=== PATIENT | female | born 1970 | race Caucasian/White ===

== ENCOUNTER 2025-01-29 03:37 | Inpatient (IN) | payer SELFPAY ==
[2025-01-29] VITALS (14 sets, daily range): BP systolic 98–153; BP diastolic 65–86; PULSE 88–127; RESP 18–23; TEMP 36.3–37.3; O2SAT 92–100; BMI 32.9; BMI 37.5
--- NOTE | 2025-01-29 04:16 | EDRME_ITS ---
Rapid Medical Screening Exam REPLACED BY [facility] Arrival date/time: 01/29/25 03:37 Chief Complaint: Abdominal Pain Vital signs: Vital Signs Temperature 98.8 F 01/29/25 03:57 Pulse Rate 127 H 01/29/25 03:57 Respiratory Rate 19 01/29/25 03:57 Blood Pressure 119/76 01/29/25 03:57 Pulse Oximetry (%) 96 01/29/25 03:57 Oxygen Delivery Method Room Air 01/29/25 03:57 REPLACED BY [facility] Narrative: LLQ pain, diarrhea x5 days. No fever, n/v, bloody stools or urinary symptoms reported.
--- NOTE | 2025-01-29 04:17 | XR_ITS ---
Examination: CT abdomen with intravenous contrast CT pelvis with intravenous contrast 2-D coronal reconstructions 2-D sagittal reconstructions Date and time of exam:January 29, 2025 0629 hours INDICATIONS: Cervical abdominal pain beginning 5 days ago. CTDI: vol (mGy) 14.5 DLP: (mGycm) 816 Technique: Multiple axial sections of the abdomen and pelvis have been obtained. 64 slice high-resolution scanner used. 3 mm axial sections have been obtained, post intravenous injection 60 cc Isovue 370 2-D sagittal, coronal reconstructions obtained. Low dose protocols were performed. One or more of the following dose reduction techniques were used; automated exposure control, adjustment of the mA and/or KV according to patient size, use of iterative reconstruction technique. Findings: Hepatomegaly 22 cm with diffuse fatty infiltration throughout the liver Gallstones versus gallbladder sludge No splenic pancreatic or adrenal lesion 4 mm upper pole left renal calculus with severe scarring left kidney moderate scarring right kidney No hydronephrosis or ureteral calculi Aorta normal size Normal appendix No bowel obstruction Abnormal colon at junction distal descending colon and rectosigmoid, marked wall thickening and inflammatory change with pericolonic abscess, axial image 189 extending to the anterior abdominal wall, measuring at least 6 x 5.8 cm Urinary bladder intact Anteverted uterus with uterine body mass at least 4.5 cm IMPRESSION: 4 mm upper pole left renal calculus, severe scarring left kidney Abnormal colon at junction distal descending colon and rectal sigmoid, marked wall thickening and inflammatory change, differential would include perforated malignant neoplasm of the colon, acute diverticulitis Peridiverticular abscess 6 x 5.8 cm Uterine body mass at least 4.5 cm, recommend pelvic sonography follow-up
[2025-01-29] MEDS: HYDROcodone/APAP 7.5/325 TABLET 1 TAB PO (04:36)
[2025-01-29 05:17] LABS: Basophils % (Auto) 0 % (0-2.5); Eosinophils % (Auto) 0 % (0-10); Hematocrit 37.2 % (36.0-46.0); Hemoglobin 13.1 g/dL (12.0-16.0); Immature Granulocytes % (Auto) 1 % (0-0); Immature Granulocytes Auto 0.17 Thou/mm3 (0.00-0.00); Lymphocytes # (Auto) 1.4 Thou/mm3 (1.0-4.8); Lymphocytes % (Auto) 6 % (10-50); Mean Corpuscular HGB Conc 35.2 g/dl (31.0-37.0); Mean Corpuscular Hemoglobin 30.3 pg (25.0-35.0); Mean Corpuscular Volume 86 fL (80-100); Monocytes # (Auto) 1.5 Thou/mm3 (0.0-0.8); Monocytes % (Auto) 7 % (0-12); Neutrophils # (Auto) 19.6 Thou/mm3 (1.8-7.7); Neutrophils % (Auto) 87 % (37-80); Nucleated Red Blood Cell % 0 /100 WBC (0); Platelet Count 395 Thou/mm3 (140-440); Red Blood Count 4.33 Miln/mm3 (4.00-5.20); White Blood Count 22.6 Thou/mm3 (3.6-11.0)
[2025-01-29 05:40] LABS: Collection Type, Urine Clean Catch
[2025-01-29 05:49] LABS: Alanine Aminotransferase 20 U/L (10-49); Albumin, Serum 4.4 gm/dL (3.5-5.0); Albumin/Globulin Ratio 1.3 (1.2-2.2); Alkaline Phosphatase 88 U/L (46-116); Anion Gap 9 (7-16); Aspartate Amino Transferase 20 U/L (0-34); BUN/Creatinine Ratio 11 Ratio (12-20); Bilirubin,Total 0.6 mg/dL (0.3-1.2); Blood Urea Nitrogen 9 mg/dL (9-23); Calcium 8.9 mg/dL (8.3-10.6); Calcium (Corrected) 8.9 mg/dL (8.5-10.1); Carbon Dioxide 26.7 mMol/L (20.0-31.0); Chloride 97 mMol/L (98-107); Creatinine (Component) 0.8 mg/dL (0.6-1.3); Estimated Creatinine Clearance 80.5 mL/min (>60); Globulin 3.5 gm/dL (2.3-3.5); Glucose 143 mg/dL (74-106); Lipase 25 U/L (12-53); Osmolality,Calculated 267 (275-295); Potassium 3.7 mMol/L (3.4-5.1); Sodium 133 mMol/L (136-145); Total Protein 7.9 gm/dL (5.7-8.2); eGFR > 60 See Note
[2025-01-29 06:23] LABS: Bacteria,Urine 1+; Bilirubin,Urine Negative (Negative); Blood,Urine 1+ (Negative); Clarity,Urine Turbid (Clear/Hazy); Color,Urine Yellow (Lt Yel-Yel); Glucose, Urine Negative (Negative); Ketones,Urine Negative (Negative); Leukocyte Esterase,Urine Positive (Negative); Nitrite,Urine Negative (Negative); Protein,Urine 1+ (Neg - Trace); RBC,Urine 11 /hpf (0-3); Specific Gravity,Urine 1.025 (1.001-1.035); Squamous Epithelial Cell,Urine 13 /hpf (0-5); WBC,Urine 36 /hpf (0-5)
--- NOTE | 2025-01-29 06:46 | PD.EDADDENDU ---
Emergency Room Addendum Addendum Narrative: 0600: Care assumed from Dr. Perez, the previous shift emergency physician. Past medical, surgical, social and family history reviewed. Vitals and home medications reviewed. I will assume the care of the patient at this time, pending abdomen/pelvis CT and final disposition. Please refer to the emergency department record for history and examination from initial visit.? Physical exam by me shows patient under no acute distress at this time.
--- NOTE | 2025-01-29 06:51 | EDNOTE_ITS ---
ED Abdominal Pain RME/HPI General Chief Complaint: Abdominal Pain Stated complaint: LEFT LOWER ABD PAIN Time seen by provider: 01/29/25 06:33 Arrival date/time: 01/29/25 03:37 RME / HPI RME / HPI narrative: LLQ pain, diarrhea x5 days. No fever, n/v, bloody stools or urinary symptoms reported. DR. VELASQUEZ MAIN ED EVALUATION: 54 year old female with no past medical history presents to the Emergency Depart ment with complaint of abdominal pain onset 5 days, started in the left lower quadrant area and pain is worsening today. No bleed or abnormal discharge. No fall or injury. No dysuria, hematuria, or other urinary symptoms. No sore throat, runny nose/ congestion, fevers or chills. Denies PCP. Related Data Home Medications ?Medication ?Instructions ?Recorded ?Confirmed No Known Home Medications 01/29/2501/11 Allergies Allergy/AdvReac Type Severity Reaction Status Date / Time No Known Allergies Allergy Verified 01/29/25 09:03 Review of Systems Review of Systems Systems Reviewed: All systems reviewed, normal except as documented Narrative Review of Systems: Constitutional: DENIES: fevers; Eyes: DENIES: loss of vision; Head/Ear/Nose: DENIES: loss of hearing. Throat: DENIES: dysphagia. Cardiovascular: DENIES: chest pain, dyspnea, or syncope. Respiratory: DENIES: shortness of breath; Gastrointestinal: POSIITVES: abdominal pain onset 5 days, started in the left lower quadrant area DENIES: rectal bleeding or melena. Genitourinary: DENIES: dysuria (painful or difficult urination); Musculoskeletal: DENIES: arthralgia (pain in a joint); Skin: DENIES: rash; Neurological: DENIES: loss of function or movement; Psychiatric: DENIES: recent major life stressor, emotional problem, illicit drug use or abuse; Endocrinology: DENIES: weight change,; Hematologic/Lymphatic: DENIES: abnormal bruising. Allergic/Immunologic: DENIES: urticaria (hives). Past Medical History Social History SMOKING STATUS: Never smoker SUBSTANCE USE: does not use ALCOHOL: Never ED Exam Narrative Physical exam: Physical Exam: General: The vital signs were reviewed. The patient is non-toxic, in no apparent distress and appears healthy with a patent airway, no respiratory distress and has no apparent circulatory problems. Head & Scalp: Normocephalic, atraumatic. Face: Appears normal and is without lesions, deformity. Ears: Left external pinna appears normal. Right external pinna appears normal. Eyes: The sclera is anicteric. No obvious photophobia. The Left and Right Orbit/Lid/Conjunctiva appears normal without swelling, discoloration or injection. Nose: The nose is without deformity, discharge or tenderness; Throat: Appears normal. The mucous membranes are pink and moist without exudates, redness or mass seen. The tongue appears normal. Neck: The neck is supple and no apparent mass or adenopathy. Chest: The chest wall is normal in size and symmetry and has no chest wall tenderness or crepitus. The patient displays normal ventilator effort without retractions, accessory muscle use and has adequate air movement bilaterally with no wheezes and no rales. Cardiovascular: Regular rate and rhythm; No murmurs, rubs, or gallops; Gastrointestinal: The abdomen appears normal. No obvious hernias or mass. The abdomen is obvious exquisite tenderness to the left lower quadrant with some fullness and guarding. The right lateral and upper abdomen is nontender and benign. The right side is soft and benign, non-distended, with no pain, no guarding and no rebound tenderness. Bowel sounds are present and normal sounding. No CVA tenderness. Genitourinary: Back/Spine: Normal inspection Extremities/Musculoskeletal/lymphatic: The bilateral upper and lower extremities are warm. There is no evidence of arterial insufficiency. There is no evidence of venous insufficiency/edema. The patient spontaneously moves bilateral upper and lower extremities with no pain and no limitation of movement. There is no apparent, injury or trauma. Skin: The skin is warm, dry and intact. No rashes. No petechia. No purpura. No abnormal bruising. The color is appropriate with no cyanosis. Mental status/Psychiatric: Mental status is appropriate for age. The patient has no apparent delusions, visual hallucinations, no apparent audible hallucinations. The patient has no apparent suicidal thoughts/ideation and no apparent homicidal thoughts/ideation. Neurological: The patient is awake, alert, interactive, cordial, cooperative and is oriented to name and situation. The patient follows commands and answers historical question with no impairment. There is no visual disturbance apparent. The pupils are equal and reactive bilaterally with normal eye movements and no diplopia The bilateral upper and lower extremities have normal strength, normal range of motion and normal functioning. The gait, station and balance appear to be baseline with no acute change Course Quality Measures none Orders Category Date Time Status CT Screening NOW Care 01/29/25 04:17 Active IV [Insert IV] NOW Care 01/29/25 04:[address] abdomen pelvis w con Stat Exams 01/29/25 04:17 Completed Blood Culture (Lab) Stat Lab 01/29/25 09:01 Received CBC Stat Lab 01/29/25 04:22 Completed CMP [Comprehensive Metabolic Panel] Stat Lab 01/29/25 04:22 Completed Lactate (Lactic Acid) Stat Lab 01/29/25 09:43 Completed Lipase Stat Lab 01/29/25 04:22 Completed UA [Urinalysis] Stat Lab 01/29/25 05:09 Completed HYDROcodone*/APAP 7.5/325 [[place] 7.5/325] Med 01/29/25 04:17 Discontinued 1 tab PO X1 ONE HYDROmorphone INJ [Dilaudid Inj] Med 01/29/25 08:25 Discontinued 0.5 mg IVP X1 ONE Piper/Tazo 3.375 gm Premix [Zosyn] Med 01/29/25 08:06 Discontinued 3.375 gm in 50 ml IV X1 Sodium Chloride 0.9% 1000 ml [Ns] 1,000 ml Med 01/29/25 08:06 Discontinued IV 150 mls/hr Sodium Chloride 0.9% 1000 ml [Ns] 1,630 ml Med 01/29/25 08:06 Discontinued IV 1,630 mls/hr Vital Signs Vital signs: Vital Signs Temperature 98.8 F 01/29/25 03:57 Pulse Rate 127 H 01/29/25 03:57 Respiratory Rate 19 01/29/25 03:57 Blood Pressure 119/76 01/29/25 03:57 Pulse Oximetry (%) 96 01/29/25 03:57 Oxygen Delivery Method Room Air 01/29/25 03:57 Abdominal Pain MDM MDM Narrative MDM Narrative:: I, Cora Schultz am scribing for and in the presence of Dr. Velasquez. Patient 54-year-old who has 5 days of increasing abdominal pain left lower quadrant who comes in and is now found to have a peridiverticular abscess approximately 6 cm. She has been tachycardic has exquisite abdominal pain continuously on her belly exam. Hospitalist was called they will be admitting. Laboratory studies show a white count of 22.6 sodium 133 potassium 3.7 chloride 97 CO2 26.7. BUN 9 creatinine 0.8 glucose 143 transaminases were normal. Total bilirubin is normal lipase is negative urine came back concentrated 1025 with 36 white cells and 11 red blood cells and 13 squames which is nonclean- catch specimen. Nonetheless we will start her on Zosyn fluid boluses Dr. Castro the hospitalist resident on-call was contacted and they will be admitting and Dr Ford the surgeon was called but he is in the OR and will be notified later per the hospitalist. IR services are presumably available to drain this abscess if needed. Patient data External records reviewed:: None (no previous visits) Clinical information provided by:: patient Social determinants that could affect healthcare access:: none Patient has the following chronic illnesses:: Denies any PMHx, surgeries, daily medications, or known allergies. How is presenting disease/condition affected by chronic disease/condition?: no chronic disease Evaluation data The following diagnostics were reviewed and interpreted by me:: lab results and radiology exam(s) Lab and/or radiology exams considered but not ordered:: none Interpretation Summary: Procedure(s): CT abdomen pelvis w con Accession Number(s): [id number] cc: Adolph Acharya MD; NO PRIMARY/FAMILY,PHYSICIAN; Zenon Reeder PA-C~ Examination: CT abdomen with intravenous contrast CT pelvis with intravenous contrast 2-D coronal reconstructions 2-D sagittal reconstructions Date and time of exam:January 29, 2025 0629 hours INDICATIONS: Cervical abdominal pain beginning 5 days ago. CTDI: vol (mGy) 14.5 DLP: (mGycm) 816 Technique: Multiple axial sections of the abdomen and pelvis have been obtained. 64 slice high-resolution scanner used. 3 mm axial sections have been obtained, post intravenous injection 60 cc Isovue 370 2-D sagittal, coronal reconstructions obtained. Low dose protocols were performed. One or more of the following dose reduction techniques were used; automated exposure control, adjustment of the mA and/or KV according to patient size, use of iterative reconstruction technique. Findings: Hepatomegaly 22 cm with diffuse fatty infiltration throughout the liver Gallstones versus gallbladder sludge No splenic pancreatic or adrenal lesion 4 mm upper pole left renal calculus with severe scarring left kidney moderate scarring right kidney No hydronephrosis or ureteral calculi Aorta normal size Normal appendix No bowel obstruction Abnormal colon at junction distal descending colon and rectosigmoid, marked wall thickening and inflammatory change with pericolonic abscess, axial image 189 extending to the anterior abdominal wall, measuring at least 6 x 5.8 cm Urinary bladder intact Anteverted uterus with uterine body mass at least 4.5 cm IMPRESSION: 4 mm upper pole left renal calculus, severe scarring left kidney Abnormal colon at junction distal descending colon and rectal sigmoid, marked wall thickening and inflammatory change, differential would include perforated malignant neoplasm of the colon, acute diverticulitis Peridiverticular abscess 6 x 5.8 cm Uterine body mass at least 4.5 cm, recommend pelvic sonography follow-up Dictated By: Adolph Acharya MD Medications / Prescriptions Medications or Prescriptions considered but not ordered:: none Medication administrations:: Medication Administration History Acetaminophen (Acetaminophen 325 Mg Tablet) 650 mg PO Q6H PRN PRN Reason: Fever >99.5 Stop: 02/28/25 08:31 Acetaminophen (Acetaminophen 325 Mg Tablet) 1,000 mg PO Q6H PRN PRN Reason: PAIN SCALE 1-3 (mild Stop: 02/28/25 08:31 Sodium Chloride (Ns) 1,000 mls @ 75 mls/hr IV .[id number] [facility] Stop: 02/28/25 08:44 Last Admin: 01/29/25 10:24 Dose: 75 mls/hr Documented By: MEGAN Piperacillin/Tazobactam/Dextrose (Zosyn) 3.375 gm in 50 mls @ 12.5 mls/hr IV Q8HR [facility] Stop: 02/05/25 13:59 Last Admin: 01/29/25 15:45 Dose: 12.5 mls/hr Documented By: CRYSTAL Morphine Sulfate (Morphine Sulf Inj 10 Mg/Ml Vial) 2 mg IVP Q4H PRN PRN Reason: PAIN SCALE 7-10 (Severe Stop: 02/03/25 08:36 Last Admin: 01/29/25 11:26 Dose: 2 mg Documented By: MEGAN Ondansetron HCl (Ondansetron Inj 2 Mg/Ml Inj 2 Ml) 4 mg IV Q6H PRN; Protocol PRN Reason: NAUSEA OR VOMITING Stop: 02/28/25 08:31 Last Admin: 01/29/25 11:25 Dose: 4 mg Documented By: MEGAN Sennosides (Senna Tablet) 1 tab PO QDAY PRN; Protocol PRN Reason: constipation Stop: 02/28/25 08:36 Discontinued Medications Hydrocodone Bitart/Acetaminophen (Hydrocodone/Apap 7.5/325 Tablet) 1 tab PO X1 ONE Stop: 01/29/25 04:18 Last Admin: 01/29/25 04:36 Dose: 1 tab Documented By: HONEY Fentanyl Citrate (Fentanyl Cit Inj 50 Mcg/Ml Amp 2ml) Confirm Administered Dose 200 mcg .ROUTE .STK-MED ONE Stop: 01/29/25 12:09 Last Admin: 01/29/25 13:13 Dose: Not Given Documented By: Non-Admin Reason: Duplicate Medication on eMAR Fentanyl Citrate (Fentanyl Cit Inj 50 Mcg/Ml Amp 2ml) 75 mcg IVP X1 ONE Stop: 01/29/25 13:31 Last Admin: 01/29/25 13:55 Dose: 75 mcg Documented By: Hydromorphone HCl (Hydromorphone Inj 2 Mg/Ml Vial) 0.5 mg IVP X1 ONE Stop: 01/29/25 08:26 Last Admin: 01/29/25 08:56 Dose: 0.5 mg Documented By: MEGAN Piperacillin/Tazobactam/Dextrose (Zosyn) 3.375 gm in 50 mls @ 100 mls/hr IV X1 ONE Stop: 01/29/25 08:35 Last Infusion: 01/29/25 09:27 Dose: Infused Documented By: Admin: 01/29/25 08:57 Dose: 100 mls/hr Documented By: MEGAN Sodium Chloride (Ns) 1,630 mls @ 1,630 mls/hr 20 ml/kg infuse over 60 min (1630 ml) IV .Q1H ONE Stop: 01/29/25 09:05 Last Infusion: 01/29/25 10:17 Dose: Infused Documented By: Admin: 01/29/25 08:56 Dose: 1,630 mls/hr Documented By: MEGAN Sodium Chloride (Ns) 1,000 mls @ 150 mls/hr IV .Q6H40M ONE Stop: 01/29/25 14:45 Last Admin: 01/29/25 10:24 Dose: Not Given Documented By: MEGAN Non-Admin Reason: Duplicate Medication on eMAR Lidocaine HCl (Lidocaine Inj Pf 1% 30 Ml Vial) Confirm Administered Dose 30 ml .ROUTE .STK-MED ONE Stop: 01/29/25 12:09 Last Admin: 01/29/25 13:13 Dose: Not Given Documented By: Non-Admin Reason: Duplicate Medication on eMAR Lidocaine HCl (Lidocaine Inj Pf 1% 30 Ml Vial) 10 ml INFL X1 ONE Stop: 01/29/25 14:01 Last Admin: 01/29/25 14:02 Dose: 10 ml Documented By: Naloxone HCl (Naloxone Inj 0.4 Mg/Ml Vial) Confirm Administered Dose 0.8 mg .ROUTE .STK-MED ONE Stop: 01/29/25 12:09 Last Admin: 01/29/25 13:14 Dose: Not Given Documented By: Non-Admin Reason: Duplicate Medication on eMAR Ondansetron HCl (Ondansetron Inj 2 Mg/Ml Inj 2 Ml) Confirm Administered Dose 4 mg .ROUTE .STK-MED ONE Stop: 01/29/25 12:09 Last Admin: 01/29/25 13:14 Dose: Not Given Documented By: Non-Admin Reason: Duplicate Medication on eMAR see above Consultations Consultation(s) initiated? (list below): Yes Consultation #1 (Physician, Specialty, Details): Discussed test HPI, PMHx, lab, radiology results and/or management with Dr. Castro. Will admit for further evaluation and management. Accepts patient for admission. Time: 08:32 Diagnosis Differential diagnosis abdominal pain: abdominal pain, diverticulitis and gastroenteritis Most likely diagnosis given after review of the tests above:: Colonic diverticular abscess Renal calculi Abdominal pain Mass of uterus Admission Indicated Admission indicated?: indicated Admission Request Was there a request for admission?: Yes Admission Attestation Admission request attestation: Discussed case with [] from Hospitalist service regarding admission. Discussed patients ED course, exam findings, labs, and radiology results. The Hospitalist [agrees,declines] to accept the patient for admission. Disposition Plan Disposition Plan: Admit Discharge Plan Plan Patient Disposition: Admit Acute Care w/in Hospital Discharge Disposition comment: Hospitalist Dr. Castro resident Problem List Clinical Impression: Colonic diverticular abscess, Renal calculi, Abdominal pain, Mass of uterus
--- NOTE | 2025-01-29 07:20 | PC.WOUND ---
Received report from Joann FITZPATRICK and assumed care of patient. Patient resting in bed with no signs of distress. Awaiting CT results.
--- NOTE | 2025-01-29 08:29 | PC.NURSE ---
PATIENT STATES PAIN 9/10. INFORMED ER PROVIDER AND RECEIVED VERBAL ORDER FOR 0.5MG HYDROMORPHONE IV.
--- NOTE | 2025-01-29 08:44 | PD.RESHP ---
Documentation for date of: 01/29/25 [facility] History of Present Illness Chief complaint: abdominal pain History of present illness: 54-year-old female with no past medical history who presented to the ED due to abdominal pain. Abdominal pain started about 5 days ago more pronounced in the left lower quadrant consuming any kind of p.o. intake makes it worse and not moving, staying still helps with the pain. Associated with fever chills and nausea but no vomiting. Patient also endorses some watery diarrhea with onset about the same time. Denies shortness of breath, chest pain, vomiting, recent travel, sick contacts. ED course: ED vitals: BP 119/76, HR 127, RR 19, saturating 96% on room air ED labs: Leukocytosis, mild hyponatremia, glucose 143, UA positive for UTI, CT abdomen pelvis shows 4 mm upper pole left renal calculus with severe scarring of left kidney, acute diverticulitis, peridiverticular abscess 6 x 5.8 cm, uterine body mass at least 4.5 cm. ED Tx: Was given [place], NS bolus, hydromorphone, Zosyn, Zofran, morphine PMHx: As above SxHx: Tubal ligation Social Hx: Half a pack of cigarettes per day, denies alcohol use, denies illicit substances including THC FHx: Unknown Allergies: NKDA Home meds: none Review of Systems Review of Systems Systems Reviewed: All systems reviewed, normal except as documented Narrative Review of Systems: All 12 systems reviewed and normal unless stated in the HPI Exam Vital Signs Temp Pulse Resp BP Pulse Ox O2 Del Method 98.6 F 103 H 18 115/86 H 97 Room Air 01/29/25 08:05 01/29/25 08:05 01/29/25 08:05 01/29/25 08:05 01/29/25 08:05 01/29/25 08:05 Narrative Exam Physical Exam GENERAL: NAD, AAOx3 HEENT: Dry mucosa. Eyes open, symmetrical, & clear CARDIO: Heart RRR, no obvious murmurs PULM: No noted coughing/dyspnea CTA B/L, no R/W/R GI: Abdomen soft, nondistended, pain on palpation of left lower quadrant. BS+ SKIN/MSK/EXT: No wounds/rashes/edema/amputations, no pain on palpation. Pedal pulses present B/L NEURO: AAOx3, no focal neuro deficits, able to move all 4 extremities Results: Labs 01/31/25 04:54 01/31/25 04:54 Labs: Short CBC 01/29/25 Range/Units 04:22 WBC 22.6 H (3.6-11.0) Thou/mm3 Hgb 13.1 (12.0-16.0) g/dL Hct 37.2 (36.0-46.0) % Plt Count 395 (140-440) Thou/mm3 BMP 01/29/25 04:22 Sodium 133 L Potassium 3.7 Chloride 97 L Carbon Dioxide 26.7 BUN 9 Creatinine 0.8 Glucose 143 H Calcium 8.9 Liver Function 01/29/25 Range/Units 04:22 Total Bilirubin 0.6 (0.3-1.2) mg/dL AST 20 (0-34) U/L ALT 20 (10-49) U/L Alkaline Phosphatase 88 (46-116) U/L Albumin 4.4 (3.5-5.0) gm/dL Urine 01/29/25 Range/Units 05:09 Urine Color Yellow (Lt Yel-Yel) Urine Clarity Turbid A (Clear/Hazy) Urine pH 6.0 (5.0-7.0) Ur Specific Krebs 1.025 (1.001-1.035) Urine Protein 1+ A (Neg - Trace) Urine Glucose (UA) Negative (Negative) Quality Measures Quality Measures none Medications Home Medications and Allergies Home Medications ?Medication ?Instructions ?Recorded ?Confirmed ?Type No Known Home Medications 01/29/25 01/29/25 History Allergies Allergy/AdvReac Type Severity Reaction Status Date / Time No Known Allergies Allergy Verified 01/29/25 09:03 Visit Medications Sodium Chloride (Ns) 1,630 mls @ 1,630 mls/hr 20 ml/kg infuse over 60 min (1630 ml) IV .Q1H ONE Stop: 01/29/25 09:05 Sodium Chloride (Ns) 1,000 mls @ 150 mls/hr IV .[id number] ONE Stop: 01/29/25 14:45 Discontinued Medications Hydrocodone Bitart/Acetaminophen (Hydrocodone/Apap 7.5/325 Tablet) 1 tab PO X1 ONE Stop: 01/29/25 04:18 Last Admin: 05/20/25 04:36 Dose: 1 tab Hydromorphone HCl (Hydromorphone Inj 2 Mg/Ml Vial) 0.5 mg IVP X1 ONE Stop: 01/29/25 08:26 Piperacillin/Tazobactam/Dextrose (Zosyn) 3.375 gm in 50 mls @ 100 mls/hr IV X1 ONE Stop: 01/29/25 08:35 Assessment & Plan Plan 54 -year-old female with no past medical history who presented with left lower quadrant pain. Who was admitted for acute diverticulitis with Dian- diverticular abscess. #Acute diverticulitis #Peridiverticular abscess Patient presented with lower quadrant abdominal pain associated with fever chills and watery diarrhea CT abdomen pelvis showed Abnormal colon at junction distal descending colon and rectal sigmoid, marked wall thickening and inflammatory change, differential would include perforated, malignant neoplasm of the colon, acute diverticulitis Peridiverticular abscess 6 x 5.8 cm ? On Zosyn (01/29? ? Pending IR drainage of abscess ? General surgery consulted, appreciate recommendations ? Follow-up cultures - On IV hydration #Asymptomatic bacteriuria Found on UA, however patient denies any dysuria or any urinary symptoms ? On antibiotics as above ? Will continue to monitor #uterine body mass ?follow up as outpatient Health Maintenance: Disposition: MedSurg, pending IR drainage of abscess Fluids: NS Feeding: N.p.o. for procedure Thrombo prophylaxis: SCDs Gastric Ulcer prophylaxis: None CODE STATUS: Full code Case discussed with my senior Dr. Dickinson and my attending Dr. Grecia Velasco MD PGY-1 Patient examined and case discussed with the team including attending physician. Note reviewed, I agree with the care plan as documented. Ms Jackson is a 54 year old female admitted for acute diverticulitis complicated by a peridiverticular abscess. Patient presented with LLQ abdominal pain, fever and non bloody diarrhea. CT abdomen pelvis showed Abnormal colon at junction distal descending colon and rectal sigmoid, marked wall thickening and inflammatory change, differential would include perforated, malignant neoplasm of the colon, acute diverticulitis. Peridiverticular abscess 6 x 5.8 cm Plan: started on Zosyn (01/29? ) ; liquid diet, to be advanced as tolerated. IR consulted for abscess drainage. Please refer to the note above for further details. - Abraham Dickinson MD, PGY 2 Disclaimer: The document may contain phonetic/typographic errors due to voice recognition software. These errors are purely due to imperfections in the software program and should not be misconstrued in any way to compromise the substance of the patient's medical care during this visit. Attending Provider Attestation/Addendum 54-year-old female with no medical history presented with left upper quadrant pain found to have acute diverticulitis with peridiverticular abscess. On Zosyn pending IR drainage. Also has uterine mass for which will need outpatient Gynecology n referral.I reviewed above note and agree with findings and plans. I have also personally examined the patient with medicine team and went over assessment and plan with medical team including director international and resident physician.
[2025-01-29] MEDS: HYDROmorphone INJ 2 MG/ML VIAL 0.5 MG IVP (08:56)
[2025-01-29] MEDS: SODIUM CHLORIDE 0.9% 1630 ML IV (08:56)
[2025-01-29] MEDS: PIPER/TAZO 3.375 GM PREMIX 3.375 GM/50 ML BAG IV ×3 (08:57→21:29)
[2025-01-29 09:48] LABS: Lactate (Lactic Acid) 1.6 mMol/L (0.4-2.0)
[2025-01-29 10:20] LABS: Cardiac Risk Estimate 5.8 RATIO (3.7-5.6); Cholesterol 116 mg/dL (132-200); HDL Cholesterol 20 mg/dL (40-60); LDL Cholesterol,Calculated 76 mg/dL (0-130); Triglycerides 98 mg/dL (30-150)
[2025-01-29] MEDS: SODIUM CHLORIDE 0.9% 1000 ML 1,000 ML 75 ML IV (10:24)
--- NOTE | 2025-01-29 10:48 | XR_ITS ---
Examination: CT-guided percutaneous placement abscess drainage catheter left lower abdomen CT abdomen without intravenous contrast Date and time of procedure: January 29, 2025 1333 hours INDICATIONS: Abdominal pain this week, 6 x 5.8 cm abscess contiguous with the descending colon Informed consent provided. A timeout was completed verifying correct patient, procedure, site and positioning. . Technique: Axial 3 mm sections were obtained for localization of the left lower abdomen abscess Appropriate area is marked. The patient's site was prepped and draped in sterile fashion Maximal sterile barrier technique utilized, including hand hygiene Local anesthesia was obtained with 1% lidocaine. Low dose protocols were performed. One or more of the following dose reduction techniques were used; automated exposure control, adjustment of the mA and/or KV according to patient size, use of iterative reconstruction technique. Utilizing CT fluoroscopic guidance placement of a 5 [place] catheter placed percutaneously in the abscess collection followed by wire guide dilator and 8 [place] pigtail abscess drainage catheter in satisfactory position 10 cc. I material removed for culture and sensitivity Patient appears in stable condition during this procedure. At completion of the procedure, the patient is in satisfactory condition. Estimated blood loss 2 cc Complete pathology report to follow. Impression: Successful CT-guided placement percutaneous drainage catheter in left lower abdomen abscess as above
--- NOTE | 2025-01-29 10:54 | PD.SURCONS ---
HPI Consult details Consult date: 01/29/25 Reason for consultation narrative: Acute diverticulitis with abscess Meds Home Medications and Allergies Home Medications ?Medication ?Instructions ?Recorded ?Confirmed ?Type No Known Home Medications 01/29/25 01/29/25 History Allergies Allergy/AdvReac Type Severity Reaction Status Date / Time No Known Allergies Allergy Verified 01/29/25 09:03 Exam Vital Signs Temp Pulse Resp BP Pulse Ox O2 Del Method 98.2 F 97 18 113/73 99 Room Air 01/29/25 10:03 01/29/25 10:03 01/29/25 10:03 01/29/25 10:03 01/29/25 10:03 01/29/25 10:03 Results Results: Laboratory Laboratory results: results reviewed Results: Imaging CT scan - abdomen: report reviewed and image reviewed CT scan - pelvis: report reviewed and image reviewed Assessment & Plan Problem List (1) Colonic diverticular abscess: Status: Acute Plan Keep NPO with IVF and IV antibiotics. IR to drain abscess.
[2025-01-29] MEDS: ONDANSETRON INJ 2 MG/ML INJ 2 ML 4 MG IV (11:25)
[2025-01-29] MEDS: MORPHINE SULF INJ 10 MG/ML VIAL 2 MG IVP (11:26)
[2025-01-29 12:09] LABS: INR 1.1 (0.9-1.3); Partial Thromboplastin Time 23.1 Seconds (22.0-36.0); Prothrombin Time 12.4 Seconds (9.0-12.2)
[2025-01-29] MEDS: fentaNYL CIT INJ 50 mCg/ML AMP 2ML 75 MCG IVP (13:55)
[2025-01-29] MEDS: LIDOCAINE INJ PF 1% 30 ML VIAL 10 ML INFL (14:02)
--- NOTE | 2025-01-29 15:00 | PC.NURSE ---
REPORT CALLED TO NANO FITZPATRICK IN MED SURG.
--- NOTE | 2025-01-29 15:15 | PC.NURSE ---
Patient brought to floor from ED via gurney. Patient awake, alert and oriented and denies any pain at this time. Son and daughter at bedside.
[2025-01-30] VITALS: BP 109/70; PULSE 101; RESP 18; TEMP 37.2; O2SAT 95
[2025-01-30 04:00] VITALS: BP 118/75; PULSE 104; RESP 18; TEMP 36.8; O2SAT 94
[2025-01-30 05:21] LABS: Basophils % (Auto) 0 % (0-2.5); Eosinophils % (Auto) 0 % (0-10); Hematocrit 34.2 % (36.0-46.0); Hemoglobin 11.5 g/dL (12.0-16.0); Immature Granulocytes % (Auto) 1 % (0-0); Immature Granulocytes Auto 0.12 Thou/mm3 (0.00-0.00); Lymphocytes # (Auto) 1.1 Thou/mm3 (1.0-4.8); Lymphocytes % (Auto) 8 % (10-50); Mean Corpuscular HGB Conc 33.6 g/dl (31.0-37.0); Mean Corpuscular Hemoglobin 30.5 pg (25.0-35.0); Mean Corpuscular Volume 91 fL (80-100); Monocytes # (Auto) 1.1 Thou/mm3 (0.0-0.8); Monocytes % (Auto) 7 % (0-12); Neutrophils # (Auto) 12.8 Thou/mm3 (1.8-7.7); Neutrophils % (Auto) 84 % (37-80); Nucleated Red Blood Cell % 0 /100 WBC (0); Platelet Count 365 Thou/mm3 (140-440); RDW Standard Deviation 44.1 fL (36.4-46.3); Red Blood Count 3.77 Miln/mm3 (4.00-5.20); White Blood Count 15.2 Thou/mm3 (3.6-11.0)
[2025-01-30] MEDS: PIPER/TAZO 3.375 GM PREMIX 3.375 GM/50 ML BAG IV ×3 (05:36→21:27)
[2025-01-30] MEDS: MORPHINE SULF INJ 10 MG/ML VIAL 2 MG IVP ×3 (05:54→23:01)
[2025-01-30] MEDS: SODIUM CHLORIDE 0.9% 1000 ML 1,000 ML 75 ML IV (05:54)
[2025-01-30 06:15] LABS: Alanine Aminotransferase 15 U/L (10-49); Albumin, Serum 3.6 gm/dL (3.5-5.0); Albumin/Globulin Ratio 1.2 (1.2-2.2); Alkaline Phosphatase 83 U/L (46-116); Anion Gap 11 (7-16); Aspartate Amino Transferase 18 U/L (0-34); BUN/Creatinine Ratio 11 Ratio (12-20); Bilirubin,Total 0.4 mg/dL (0.3-1.2); Blood Urea Nitrogen 8 mg/dL (9-23); Calcium 8.1 mg/dL (8.3-10.6); Calcium (Corrected) 8.4 mg/dL (8.5-10.1); Carbon Dioxide 25.4 mMol/L (20.0-31.0); Chloride 102 mMol/L (98-107); Creatinine (Component) 0.7 mg/dL (0.6-1.3); Estimated Creatinine Clearance 98.7 mL/min (>60); Globulin 2.9 gm/dL (2.3-3.5); Glucose 103 mg/dL (74-106); Magnesium 2.2 mg/dL (1.6-2.6); Osmolality,Calculated 273 (275-295); Phosphorous 3.2 mg/dL (2.4-5.1); Potassium 3.6 mMol/L (3.4-5.1); Sodium 138 mMol/L (136-145); Thyroid Stimulating Hormone 2.99 uIU/mL (0.55-4.78); Total Protein 6.5 gm/dL (5.7-8.2); eGFR > 60 See Note
[2025-01-30 07:41] VITALS: BP 115/71; PULSE 101; RESP 18; TEMP 36.8; O2SAT 97
--- NOTE | 2025-01-30 08:39 | PD.RESPRO ---
Documentation for date of: 01/30/25 Subjective Subjective Interval history: Patient seen today at the bedside found awake, alert, orientedx3. No overnight events reported. No active complaints at this time. Vitals and labs reviewed. Abscess culture grew gram-negative rods. Will await for speciation. Will keep patient on clear liquid diet as per surgery reccs and will repeat CT scan when drain is less than 10cc. Exam Vital Signs Temp Pulse Resp BP Pulse Ox O2 Del Method O2 Flow Rate 98.3 F 101 H 18 115/71 97 Room Air 3 01/30/25 07:41 01/30/25 07:41 01/30/25 07:41 01/30/25 07:41 01/30/25 07:41 01/30/25 07:41 01/29/25 14:10 Narrative Exam Physical Exam GENERAL: NAD, AAOx3 HEENT: Dry mucosa. Eyes open, symmetrical, & clear CARDIO: Heart RRR, no obvious murmurs PULM: No noted coughing/dyspnea CTA B/L, no R/W/R GI: Abdomen soft, nondistended, pain on palpation of left lower quadrant. BS+ SKIN/MSK/EXT: No wounds/rashes/edema/amputations, no pain on palpation. Pedal pulses present B/L NEURO: AAOx3, no focal neuro deficits, able to move all 4 extremities Objective Labs 01/31/25 04:54 01/31/25 04:54 Labs: Laboratory Results - last 24 hr 01/29/25 01/29/25 01/30/25 09:43 11:39 04:40 WBC 15.2 H D RBC 3.77 L Hgb 11.5 L Hct 34.2 L MCV 91 MCH 30.5 MCHC 33.6 RDW Std Deviation 44.1 Plt Count 365 D Neut % (Auto) 84 H Lymph % (Auto) 8 L [place] % (Auto) 7 Eos % (Auto) 0 Baso % (Auto) 0 Neut # (Auto) 12.8 H Lymph # (Auto) 1.1 [place] # (Auto) 1.1 H Eos # (Auto) 0.0 Baso # (Auto) 0.0 Immature Gran # (Auto) 0.12 H Absolute Nucleated RBC 0.00 Immature Gran % 1 H Nucleated RBC % 0 PT 12.4 H INR 1.1 APTT 23.1 Sodium 138 Potassium 3.6 Chloride 102 Carbon Dioxide 25.4 Anion Gap 11 BUN 8 L Creatinine 0.7 Estim Creat Clear Calc 98.7 eGFR > 60 BUN/Creatinine Ratio 11 L Glucose 103 Calculated Osmolality 273 L Lactic Acid 1.6 Calcium 8.1 L Corrected Calcium 8.4 L Phosphorus 3.2 Magnesium 2.2 Total Bilirubin 0.4 AST 18 ALT 15 Alkaline Phosphatase 83 Total Protein 6.5 Albumin 3.6 D Globulin 2.9 Albumin/Globulin Ratio 1.2 Triglycerides 98 Cholesterol 116 L LDL Cholesterol, Calc 76 HDL Cholesterol 20 L Cholesterol/HDL Ratio 5.8 H TSH 2.99 Quality Measures Quality Measures none Assessment & Plan Assessment Current Active Medications: Generic Name Dose Route Start Last Admin Trade Name Freq PRN Reason Stop Dose Admin Acetaminophen 650 mg 01/29/25 08:32 Acetaminophen 325 Mg Tablet PO 02/28/25 08:31 Q6H PRN Fever >99.5 Acetaminophen 1,000 mg 01/29/25 08:32 Acetaminophen 325 Mg Tablet PO 02/28/25 08:31 Q6H PRN PAIN SCALE 1-3 (mild Sodium Chloride 1,000 mls @ 75 mls/hr 01/29/25 08:45 01/30/25 05:54 Ns IV 02/28/25 08:44 75 mls/hr .[id number] BRIANNA Administration Piperacillin/Tazobactam/Dextrose 3.375 gm in 50 mls @ 12.5 mls/hr 01/29/25 14:00 01/30/25 05:36 Zosyn IV 02/05/25 13:59 12.5 mls/hr Q8HR BRIANNA Administration Morphine Sulfate 2 mg 01/29/25 08:37 01/30/25 05:54 Morphine Sulf Inj 10 Mg/Ml Vial IVP 02/03/25 08:36 2 mg Q4H PRN Administration PAIN SCALE 7-10 (Severe Ondansetron HCl 4 mg 01/29/25 08:32 01/29/25 11:25 Ondansetron Inj 2 Mg/Ml Inj 2 Ml IV 02/28/25 08:31 4 mg Q6H PRN Administration NAUSEA OR VOMITING Protocol Sennosides 1 tab 01/29/25 08:37 Senna Tablet PO 02/28/25 08:36 QDAY PRN constipation Protocol Plan 54 -year-old female with no past medical history who presented with left lower quadrant pain. Who was admitted for acute diverticulitis with Dian- diverticular abscess. #Acute diverticulitis #Peridiverticular abscess s/p IR drainage Patient presented with lower quadrant abdominal pain associated with fever chills and watery diarrhea CT abdomen pelvis showed Abnormal colon at junction distal descending colon and rectal sigmoid, marked wall thickening and inflammatory change, differential would include perforated, malignant neoplasm of the colon, acute diverticulitis Peridiverticular abscess 6 x 5.8 cm ? On Zosyn (01/29? ? on CLD, will repeat CT scan when [place] drain is less than 10cc per surgery reccs ? General surgery consulted, appreciate recommendations ? Follow-up abcess cultures #Asymptomatic bacteriuria Found on UA, however patient denies any dysuria or any urinary symptoms ? On antibiotics as above ? Will continue to monitor #uterine body mass ?follow up as outpatient Health Maintenance: Disposition: MedSurg, pending IR drainage of abscess Fluids: none Feeding: CLD Thrombo prophylaxis: SCDs Gastric Ulcer prophylaxis: None CODE STATUS: Full code Case discussed with my attending Dr. Grecia Velasco MD PGY-1 Attending Provider Attestation/Addendum 54-year-old female with no medical history presented with left upper quadrant pain found to have acute diverticulitis with peridiverticular abscess. Also has uterine mass for which will need outpatient Gynecology referral. Currently, patient is status post IR drainage and on Zosyn. Will also consult general surgery. I reviewed above note and agree with findings and plans. I have also personally examined the patient with medicine team and went over assessment and plan with medical team including international trade manager and resident physician.
[2025-01-30 11:41] VITALS: BP 126/83; PULSE 96; RESP 18; TEMP 36.8; O2SAT 97
--- NOTE | 2025-01-30 11:43 | PD.SURPROG ---
Documentation for date of: 01/30/25 Subjective Subjective Narrative: Patient is seen and examined. She is resting comfortably, her pain is improved. She was started on clear liquids. She is passing flatus but no bowel movement yet. She underwent placement of percutaneous drain, with approximately 50 cc drainage Exam Vital Signs Temp Pulse Resp BP Pulse Ox O2 Del Method O2 Flow Rate 98.3 F 96 18 126/83 97 Room Air 3 01/30/25 11:41 01/30/25 11:41 01/30/25 11:41 01/30/25 11:41 01/30/25 11:41 01/30/25 11:41 01/29/25 14:10 Constitutional Constitutional: no acute distress Routine Abdominal Exam Comments: Abdomen is soft and nondistended. She has tenderness to palpation of the left lower quadrant. Drain is in place and intact Assessment & Plan Assessment Additional comments: Likely diverticular abscess status post percutaneous drainage Plan Continue IV antibiotics. Keep patient on clear liquids. When drainage is less than 10 cc, will repeat CT scan
--- NOTE | 2025-01-30 14:53 | PC.SS ---
Patient is alert/oriented. Patient was able to verify demographics. Patient is independent with ADL's. She resides with her son. Patient was admitted for abdominal pain. SS disussed self pay status and our financial counselor meeting. Patient was aware to provide financial verification to complete the process for insurance coverage. Patient states she's never been sick before or admitted. She does not have a p.c.p. She is agreeable to following up at [facility]. 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 Discharge plan is to return home. Patient verbalized her son would be the alt medical decision maker.
[2025-01-30 15:58] VITALS: BP 103/69; PULSE 88; RESP 18; TEMP 36.8; O2SAT 97
[2025-01-30 20:00] VITALS: BP 114/77; PULSE 95; RESP 18; TEMP 36.3; O2SAT 96
[2025-01-31] VITALS: BP 117/68; PULSE 83; RESP 18; TEMP 36.7; O2SAT 98
[2025-01-31 04:00] VITALS: BP 121/67; PULSE 80; RESP 18; TEMP 36.4; O2SAT 96
[2025-01-31] MEDS: PIPER/TAZO 3.375 GM PREMIX 3.375 GM/50 ML BAG IV ×3 (05:20→21:12)
[2025-01-31 05:40] LABS: Basophils % (Auto) 0 % (0-2.5); Eosinophils # (Auto) 0.1 Thou/mm3 (0.0-0.5); Eosinophils % (Auto) 1 % (0-10); Hematocrit 30.4 % (36.0-46.0); Hemoglobin 10.3 g/dL (12.0-16.0); Immature Granulocytes % (Auto) 1 % (0-0); Immature Granulocytes Auto 0.14 Thou/mm3 (0.00-0.00); Lymphocytes # (Auto) 1.4 Thou/mm3 (1.0-4.8); Lymphocytes % (Auto) 14 % (10-50); Mean Corpuscular HGB Conc 33.9 g/dl (31.0-37.0); Mean Corpuscular Hemoglobin 29.6 pg (25.0-35.0); Mean Corpuscular Volume 87 fL (80-100); Monocytes # (Auto) 0.9 Thou/mm3 (0.0-0.8); Monocytes % (Auto) 9 % (0-12); Neutrophils # (Auto) 7.3 Thou/mm3 (1.8-7.7); Neutrophils % (Auto) 75 % (37-80); Nucleated Red Blood Cell % 0 /100 WBC (0); Platelet Count 333 Thou/mm3 (140-440); RDW Standard Deviation 42.2 fL (36.4-46.3); Red Blood Count 3.48 Miln/mm3 (4.00-5.20); White Blood Count 9.8 Thou/mm3 (3.6-11.0)
[2025-01-31 06:10] LABS: Alanine Aminotransferase 13 U/L (10-49); Albumin, Serum 3.3 gm/dL (3.5-5.0); Albumin/Globulin Ratio 1.1 (1.2-2.2); Alkaline Phosphatase 70 U/L (46-116); Anion Gap 10 (7-16); Aspartate Amino Transferase 17 U/L (0-34); BUN/Creatinine Ratio 12 Ratio (12-20); Bilirubin,Total 0.3 mg/dL (0.3-1.2); Blood Urea Nitrogen 7 mg/dL (9-23); Calcium 8.4 mg/dL (8.3-10.6); Carbon Dioxide 25.8 mMol/L (20.0-31.0); Chloride 99 mMol/L (98-107); Creatinine (Component) 0.6 mg/dL (0.6-1.3); Estimated Creatinine Clearance 115.1 mL/min (>60); Glucose 95 mg/dL (74-106); Magnesium 2.4 mg/dL (1.6-2.6); Osmolality,Calculated 268 (275-295); Phosphorous 3.9 mg/dL (2.4-5.1); Potassium 3.2 mMol/L (3.4-5.1); Sodium 135 mMol/L (136-145); Total Protein 6.3 gm/dL (5.7-8.2); eGFR > 60 See Note
[2025-01-31 08:00] VITALS: BP 99/73; PULSE 85; RESP 17; TEMP 36.9; O2SAT 97
[2025-01-31] MEDS: POTASSIUM CHLORIDE 20 mEq TABCR 40 MEQ PO (08:22)
[2025-01-31 12:00] VITALS: BP 116/80; PULSE 79; RESP 18; TEMP 36.9; O2SAT 96
--- NOTE | 2025-01-31 13:05 | PD.SURPROG ---
Documentation for date of: 01/31/25 Subjective Subjective Narrative: Patient is seen and examined. She is complaining of pain at the catheter insertion site. She is tolerating clear liquids and started having bowel movements Exam Vital Signs Temp Pulse Resp BP Pulse Ox O2 Del Method O2 Flow Rate 98.4 F 79 18 116/80 96 Room Air 3 01/31/25 12:00 01/31/25 12:00 01/31/25 12:00 01/31/25 12:00 01/31/25 12:00 01/31/25 12:00 01/29/25 14:10 Constitutional Constitutional: no acute distress Routine Abdominal Exam Comments: Abdomen is soft and nondistended. She has tenderness to palpation around the catheter site. Catheter in place and intact with purulent drainage Assessment & Plan Assessment Additional comments: Diverticulitis with peridiverticular abscess status post percutaneous drainage Plan Continue IV antibiotics. Repeat CT scan of abdomen pelvis with IV contrast tomorrow
[2025-01-31] MEDS: MORPHINE SULF INJ 10 MG/ML VIAL 2 MG IVP (13:16)
--- NOTE | 2025-01-31 14:25 | ESPR_ITS ---
Documentation for date of: 01/31/25 Subjective Subjective Interval history: Patient seen today at the bedside found awake, alert, orientedx3. No overnight events reported. He is complaining of mild pains near drainage site. ZAIRE drain less than 10 cc. Vitals and labs reviewed. Per surgery recommendations we will continue with IV antibiotics and will repeat CT scan tomorrow morning. Exam Vital Signs Temp Pulse Resp BP Pulse Ox O2 Del Method O2 Flow Rate 98.4 F 79 18 116/80 96 Room Air 3 01/31/25 12:00 01/31/25 12:00 01/31/25 12:00 01/31/25 12:00 01/31/25 12:00 01/31/25 12:00 01/29/25 14:10 Narrative Exam Physical Exam GENERAL: NAD, AAOx3 HEENT: Dry mucosa. Eyes open, symmetrical, & clear CARDIO: Heart RRR, no obvious murmurs PULM: No noted coughing/dyspnea CTA B/L, no R/W/R GI: Abdomen soft, nondistended, pain on palpation of left lower quadrant. BS+ SKIN/MSK/EXT: No wounds/rashes/edema/amputations, no pain on palpation. Pedal pulses present B/L NEURO: AAOx3, no focal neuro deficits, able to move all 4 extremities Objective Labs 01/31/25 04:54 01/31/25 04:54 Labs: Laboratory Results - last 24 hr 01/31/25 04:54 WBC 9.8 D RBC 3.48 L Hgb 10.3 L Hct 30.4 L MCV 87 MCH 29.6 MCHC 33.9 RDW Std Deviation 42.2 Plt Count 333 D Neut % (Auto) 75 Lymph % (Auto) 14 [place] % (Auto) 9 Eos % (Auto) 1 Baso % (Auto) 0 Neut # (Auto) 7.3 Lymph # (Auto) 1.4 [place] # (Auto) 0.9 H Eos # (Auto) 0.1 Baso # (Auto) 0.0 Immature Gran # (Auto) 0.14 H Absolute Nucleated RBC 0.00 Immature Gran % 1 H Nucleated RBC % 0 Sodium 135 L Potassium 3.2 L Chloride 99 Carbon Dioxide 25.8 Anion Gap 10 BUN 7 L Creatinine 0.6 Estim Creat Clear Calc 115.1 eGFR > 60 BUN/Creatinine Ratio 12 Glucose 95 Calculated Osmolality 268 L Calcium 8.4 Corrected Calcium 9.0 Phosphorus 3.9 Magnesium 2.4 Total Bilirubin 0.3 AST 17 ALT 13 Alkaline Phosphatase 70 Total Protein 6.3 Albumin 3.3 L Globulin 3.0 Albumin/Globulin Ratio 1.1 L Quality Measures Quality Measures none Assessment & Plan Assessment Current Active Medications: Generic Name Dose Route Start Last Admin Trade Name Freq PRN Reason Stop Dose Admin Acetaminophen 650 mg 01/29/25 08:32 Acetaminophen 325 Mg Tablet PO 02/28/25 08:31 Q6H PRN Fever >99.5 Acetaminophen 1,000 mg 01/31/25 09:27 Acetaminophen 500 Mg Tablet PO 02/28/25 08:31 Q6H PRN PAIN SCALE 1-3 (mild Piperacillin/Tazobactam/Dextrose 3.375 gm in 50 mls @ 12.5 mls/hr 01/29/25 14:00 01/31/25 13:51 Zosyn IV 02/05/25 13:59 12.5 mls/hr Q8HR BRIANNA Administration Morphine Sulfate 2 mg 01/29/25 08:37 01/31/25 13:16 Morphine Sulf Inj 10 Mg/Ml Vial IVP 02/03/25 08:36 2 mg Q4H PRN Administration PAIN SCALE 7-10 (Severe Ondansetron HCl 4 mg 01/29/25 08:32 01/29/25 11:25 Ondansetron Inj 2 Mg/Ml Inj 2 Ml IV 02/28/25 08:31 4 mg Q6H PRN Administration NAUSEA OR VOMITING Protocol Sennosides 1 tab 01/29/25 08:37 Senna Tablet PO 02/28/25 08:36 QDAY PRN constipation Protocol Plan 54 -year-old female with no past medical history who presented with left lower quadrant pain. Who was admitted for acute diverticulitis with Dian- diverticular abscess. #Acute diverticulitis #Peridiverticular abscess s/p IR drainage Patient presented with lower quadrant abdominal pain associated with fever chills and watery diarrhea CT abdomen pelvis showed Abnormal colon at junction distal descending colon and rectal sigmoid, marked wall thickening and inflammatory change, differential would include perforated, malignant neoplasm of the colon, acute diverticulitis Peridiverticular abscess 6 x 5.8 cm Abscess cultures grew E.Coli ? On Zosyn (01/29? ? CT scan abdomen pelvis with contrast 02/01 ? on CLD, will repeat CT scan when [place] drain is less than 10cc per surgery reccs ? General surgery consulted, appreciate recommendations #Asymptomatic bacteriuria Found on UA, however patient denies any dysuria or any urinary symptoms ? On antibiotics as above ? Will continue to monitor #uterine body mass ?follow up as outpatient [facility] Fluids: none Feeding: CLD Thrombo prophylaxis: SCDs Gastric Ulcer prophylaxis: None CODE STATUS: Full code Case discussed with my attending Dr. Grecia Velasco MD PGY-1 Attending Provider Attestation/Addendum 54-year-old female with no medical history presented with left upper quadrant pain found to have acute diverticulitis with peridiverticular abscess. Also has uterine mass for which will need outpatient Gynecology referral. Currently, patient is status post IR drainage and on Zosyn. Overnight, patient has less than 20 cc drainage and plan to obtain another CT abdomen and pelvis to evaluate the abscess. If resolved at that point we will remove IR drainage and discharge the patient on oral antibiotic therapy. I reviewed above note and agree with findings and plans. I have also personally examined the patient with medicine team and went over assessment and plan with medical team including programming internship and resident physician.
--- NOTE | 2025-01-31 14:28 | XR_ITS ---
Examination: CT abdomen with intravenous contrast CT pelvis with intravenous contrast 2-D coronal reconstructions 2-D sagittal reconstructions Date and time of exam:January 31, 2025 1620 hours INDICATIONS: Pelvic abscess adjacent to the colon on CT abdomen and pelvis January 29, 2025, post abscess drainage catheter placement January 29, 2025. CTDI: vol (mGy) 14.3 DLP: (mGycm) 885 Technique: Multiple axial sections of the abdomen and pelvis have been obtained. 64 slice high-resolution scanner used. 3 mm axial sections have been obtained, post intravenous injection 60 cc [id number] 2-D sagittal, coronal reconstructions obtained. Low dose protocols were performed. One or more of the following dose reduction techniques were used; automated exposure control, adjustment of the mA and/or KV according to patient size, use of iterative reconstruction technique. Findings: Diffuse fatty infiltration throughout the liver Suspicious for small gallstones No splenic or pancreatic mass Moderate renal parenchymal scar formation Normal appendix Inflammatory change about the colon again noted Abscess drainage catheter in satisfactory position, the abscess is no longer identified No new abscess collection IMPRESSION: Abscess in the left pelvis is no longer identified, consider removal of the abscess drainage catheter
[2025-01-31 15:38] VITALS: BMI 37.7
[2025-01-31 16:00] VITALS: BP 133/87; PULSE 91; RESP 18; TEMP 36.8; O2SAT 99
[2025-01-31 20:00] VITALS: BP 108/78; PULSE 87; RESP 18; TEMP 36; O2SAT 95
[2025-02-01] VITALS (8 sets, daily range): BP systolic 108–149; BP diastolic 69–84; PULSE 71–87; RESP 14–18; TEMP 36–36.4; O2SAT 96–100
[2025-02-01] MEDS: PIPER/TAZO 3.375 GM PREMIX 3.375 GM/50 ML BAG IV ×3 (05:23→21:18)
[2025-02-01 06:01] LABS: Basophils % (Auto) 0 % (0-2.5); Eosinophils # (Auto) 0.1 Thou/mm3 (0.0-0.5); Eosinophils % (Auto) 2 % (0-10); Hematocrit 31.6 % (36.0-46.0); Hemoglobin 10.8 g/dL (12.0-16.0); Immature Granulocytes % (Auto) 3 % (0-0); Immature Granulocytes Auto 0.24 Thou/mm3 (0.00-0.00); Lymphocytes # (Auto) 1.4 Thou/mm3 (1.0-4.8); Lymphocytes % (Auto) 15 % (10-50); Mean Corpuscular HGB Conc 34.2 g/dl (31.0-37.0); Mean Corpuscular Hemoglobin 29.9 pg (25.0-35.0); Mean Corpuscular Volume 88 fL (80-100); Monocytes # (Auto) 0.7 Thou/mm3 (0.0-0.8); Monocytes % (Auto) 7 % (0-12); Neutrophils # (Auto) 6.7 Thou/mm3 (1.8-7.7); Neutrophils % (Auto) 73 % (37-80); Nucleated Red Blood Cell % 0 /100 WBC (0); Platelet Count 365 Thou/mm3 (140-440); Red Blood Count 3.61 Miln/mm3 (4.00-5.20); White Blood Count 9.2 Thou/mm3 (3.6-11.0)
[2025-02-01 06:25] LABS: Alanine Aminotransferase 14 U/L (10-49); Albumin, Serum 3.4 gm/dL (3.5-5.0); Albumin/Globulin Ratio 1.1 (1.2-2.2); Alkaline Phosphatase 69 U/L (46-116); Anion Gap 9 (7-16); Aspartate Amino Transferase 18 U/L (0-34); BUN/Creatinine Ratio 8 Ratio (12-20); Bilirubin,Total 0.3 mg/dL (0.3-1.2); Blood Urea Nitrogen 5 mg/dL (9-23); Calcium 8.1 mg/dL (8.3-10.6); Calcium (Corrected) 8.6 mg/dL (8.5-10.1); Carbon Dioxide 27.6 mMol/L (20.0-31.0); Chloride 104 mMol/L (98-107); Creatinine (Component) 0.6 mg/dL (0.6-1.3); Estimated Creatinine Clearance 112.8 mL/min (>60); Glucose 102 mg/dL (74-106); Magnesium 2.3 mg/dL (1.6-2.6); Osmolality,Calculated 278 (275-295); Phosphorous 4.2 mg/dL (2.4-5.1); Potassium 3.6 mMol/L (3.4-5.1); Sodium 141 mMol/L (136-145); Total Protein 6.4 gm/dL (5.7-8.2); eGFR > 60 See Note
--- NOTE | 2025-02-01 10:23 | XR_ITS ---
Examination: Fluoroscopically guided removal abdomen abscess drainage catheter Fluoroscopy AP abdomen 2 views Date and time: February 01, 2025 1523 hours INDICATIONS: History left lower abdomen abscess, no longer identified on the CT pelvis January 31, 2025 TECHNIQUE AND FINDINGS: Informed consent provided. Timeout performed. Skin prepped over the entrance site of the abscess drainage catheter sterile drape applied hand hygiene 1% lidocaine administered for local anesthesia 0.35 wire guide is introduced into the drainage catheter to straighten the pigtail and was successful removal Estimated blood loss 1 cc IMPRESSION: Successful fluoroscopically guided removal abscess drainage catheter Fluoroscopy 0.1 minute radiation dose 4.72 milligray 2 spot fluoroscopic abdomen films, the second film no longer demonstrating a drainage catheter
[2025-02-01 11:23] LABS: INR 1.1 (0.9-1.3); Partial Thromboplastin Time 28.1 Seconds (22.0-36.0); Prothrombin Time 12.1 Seconds (9.0-12.2)
--- NOTE | 2025-02-01 12:02 | PD.SURPROG ---
Documentation for date of: 02/01/25 Subjective Subjective Narrative: Patient is seen and examined. Pain is improving. She is tolerating clear liquids without nausea or vomiting and having bowel movements. She had very minimal output from the drain. Repeat CT scan showed the abscess was no longer visible Exam Vital Signs Temp Pulse Resp BP Pulse Ox O2 Del Method O2 Flow Rate 97.1 F 87 16 149/84 H 96 Room Air 3 02/01/25 11:51 02/01/25 11:51 02/01/25 11:51 02/01/25 11:51 02/01/25 11:51 02/01/25 11:51 01/29/25 14:10 Constitutional Constitutional: no acute distress Routine Abdominal Exam Comments: Abdomen is soft and nondistended. She has minimal tenderness to palpation around the drain site. No rebound tenderness or peritonitis Assessment & Plan Assessment Additional comments: Acute diverticulitis with abscess status post percutaneous drainage Plan Continue IV antibiotics. IR to remove drain today. Patient can be started on low fiber diet. If she is tolerating low fiber diet and continues to improve, may discharge tomorrow on oral antibiotic for 10 days (Ancef and Flagyl). Follow-up with Dr Ford in 3 to 4 weeks.
--- NOTE | 2025-02-01 13:52 | ESPR_ITS ---
Documentation for date of: 02/01/25 Subjective Subjective Interval history: Patient seen today at the bedside found awake, alert, orientedx3. No overnight events reported. Vitals and labs reviewed. Patient is pending drain removal as CT scan is negative for abscess. Will remove drain and advance diet as tolerated possible discharge in the a.m. Exam Vital Signs Temp Pulse Resp BP Pulse Ox O2 Del Method O2 Flow Rate 97.1 F 87 16 149/84 H 96 Room Air 3 02/01/25 11:51 02/01/25 11:51 02/01/25 11:51 02/01/25 11:51 02/01/25 11:51 02/01/25 11:51 01/29/25 14:10 Narrative Exam Physical Exam GENERAL: NAD, AAOx3 HEENT: Dry mucosa. Eyes open, symmetrical, & clear CARDIO: Heart RRR, no obvious murmurs PULM: No noted coughing/dyspnea CTA B/L, no R/W/R GI: Abdomen soft, nondistended, pain on palpation of left lower quadrant. BS+ SKIN/MSK/EXT: No wounds/rashes/edema/amputations, no pain on palpation. Pedal pulses present B/L NEURO: AAOx3, no focal neuro deficits, able to move all 4 extremities Objective Labs 02/02/25 05:18 02/02/25 05:18 Labs: Laboratory Results - last 24 hr 02/01/25 05:23 WBC 9.2 RBC 3.61 L Hgb 10.8 L Hct 31.6 L MCV 88 MCH 29.9 MCHC 34.2 RDW Std Deviation 42.0 Plt Count 365 D Neut % (Auto) 73 Lymph % (Auto) 15 [place] % (Auto) 7 Eos % (Auto) 2 Baso % (Auto) 0 Neut # (Auto) 6.7 Lymph # (Auto) 1.4 [place] # (Auto) 0.7 Eos # (Auto) 0.1 Baso # (Auto) 0.0 Immature Gran # (Auto) 0.24 H Absolute Nucleated RBC 0.00 Immature Gran % 3 H Nucleated RBC % 0 PT 12.1 INR 1.1 APTT 28.1 Sodium 141 Potassium 3.6 Chloride 104 Carbon Dioxide 27.6 Anion Gap 9 BUN 5 L Creatinine 0.6 Estim Creat Clear Calc 112.8 eGFR > 60 BUN/Creatinine Ratio 8 L Glucose 102 Calculated Osmolality 278 Calcium 8.1 L Corrected Calcium 8.6 Phosphorus 4.2 Magnesium 2.3 Total Bilirubin 0.3 AST 18 ALT 14 Alkaline Phosphatase 69 Total Protein 6.4 Albumin 3.4 L Globulin 3.0 Albumin/Globulin Ratio 1.1 L Quality Measures Quality Measures none Assessment & Plan Assessment Current Active Medications: Generic Name Dose Route Start Last Admin Trade Name Freq PRN Reason Stop Dose Admin Acetaminophen 650 mg 01/29/25 08:32 Acetaminophen 325 Mg Tablet PO 02/28/25 08:31 Q6H PRN Fever >99.5 Acetaminophen 1,000 mg 01/31/25 09:27 Acetaminophen 500 Mg Tablet PO 02/28/25 08:31 Q6H PRN PAIN SCALE 1-3 (mild Piperacillin/Tazobactam/Dextrose 3.375 gm in 50 mls @ 12.5 mls/hr 01/29/25 14:00 02/01/25 13:47 Zosyn IV 02/05/25 13:59 12.5 mls/hr Q8HR BRIANNA Administration Morphine Sulfate 2 mg 01/29/25 08:37 01/31/25 13:16 Morphine Sulf Inj 10 Mg/Ml Vial IVP 02/03/25 08:36 2 mg Q4H PRN Administration PAIN SCALE 7-10 (Severe Ondansetron HCl 4 mg 01/29/25 08:32 01/29/25 11:25 Ondansetron Inj 2 Mg/Ml Inj 2 Ml IV 02/28/25 08:31 4 mg Q6H PRN Administration NAUSEA OR VOMITING Protocol Sennosides 1 tab 01/29/25 08:37 Senna Tablet PO 02/28/25 08:36 QDAY PRN constipation Protocol Plan 54 -year-old female with no past medical history who presented with left lower quadrant pain. Who was admitted for acute diverticulitis with Dian- diverticular abscess. #Acute diverticulitis #Peridiverticular abscess s/p IR drainage Patient presented with lower quadrant abdominal pain associated with fever chills and watery diarrhea CT abdomen pelvis showed Abnormal colon at junction distal descending colon and rectal sigmoid, marked wall thickening and inflammatory change, differential would include perforated, malignant neoplasm of the colon, acute diverticulitis Peridiverticular abscess 6 x 5.8 cm Abscess cultures grew E.Coli Repeat CT showed no sign of abscess ? On Zosyn (01/29? ? on CLD, will advance as tolerated ? General surgery consulted, appreciate recommendations #Asymptomatic bacteriuria Found on UA, however patient denies any dysuria or any urinary symptoms ? On antibiotics as above ? Will continue to monitor #uterine body mass ?follow up as outpatient Health Maintenance: Disposition: MedSurg, will dc in am Fluids: none Feeding: CLD Thrombo prophylaxis: SCDs Gastric Ulcer prophylaxis: None CODE STATUS: Full code Case discussed with my attending Dr. Jun Velasco MD PGY-1 Attending Provider Attestation/Addendum IAnabela DO, attest that I was physically present for the cox portions of the service and evaluated the patient with the resident and I reviewed and discussed the case with the resident and agree with the resident's findings and plans of care as documented above Patient seen eval this a.m. She reports some soreness at site of abscess drain in left lower quadrant. Site is clean dry and intact otherwise. Pending IR removal of abscess drain. Will advance diet as tolerated once drain is removed. Anticipate discharge in the next 24 hours if patient condition is improved and tolerates diet.
[2025-02-01] MEDS: LIDOCAINE INJ PF 1% 30 ML VIAL INFL (15:31)
[2025-02-01] MEDS: fentaNYL CIT INJ 50 mCg/ML AMP 2ML IVP (15:42)
[2025-02-01] MEDS: MORPHINE SULF INJ 10 MG/ML VIAL 2 MG IVP (22:15)
[2025-02-02] VITALS: BP 118/71; PULSE 83; RESP 18; TEMP 36.3; O2SAT 96
[2025-02-02 04:00] VITALS: BP 108/70; PULSE 76; RESP 18; TEMP 36.6; O2SAT 98
[2025-02-02] MEDS: PIPER/TAZO 3.375 GM PREMIX 3.375 GM/50 ML BAG IV (05:16)
[2025-02-02 06:17] LABS: Basophils % (Auto) 0 % (0-2.5); Eosinophils # (Auto) 0.2 Thou/mm3 (0.0-0.5); Eosinophils % (Auto) 2 % (0-10); Hematocrit 33.7 % (36.0-46.0); Hemoglobin 11.6 g/dL (12.0-16.0); Immature Granulocytes % (Auto) 3 % (0-0); Immature Granulocytes Auto 0.32 Thou/mm3 (0.00-0.00); Lymphocytes # (Auto) 1.7 Thou/mm3 (1.0-4.8); Lymphocytes % (Auto) 16 % (10-50); Mean Corpuscular HGB Conc 34.4 g/dl (31.0-37.0); Mean Corpuscular Hemoglobin 30.4 pg (25.0-35.0); Mean Corpuscular Volume 89 fL (80-100); Monocytes # (Auto) 0.7 Thou/mm3 (0.0-0.8); Monocytes % (Auto) 7 % (0-12); Neutrophils # (Auto) 7.5 Thou/mm3 (1.8-7.7); Neutrophils % (Auto) 72 % (37-80); Nucleated Red Blood Cell % 0 /100 WBC (0); Platelet Count 346 Thou/mm3 (140-440); RDW Standard Deviation 42.8 fL (36.4-46.3); Red Blood Count 3.81 Miln/mm3 (4.00-5.20); White Blood Count 10.4 Thou/mm3 (3.6-11.0)
[2025-02-02 06:18] LABS: Alanine Aminotransferase 21 U/L (10-49); Albumin, Serum 3.7 gm/dL (3.5-5.0); Albumin/Globulin Ratio 1.2 (1.2-2.2); Alkaline Phosphatase 71 U/L (46-116); Anion Gap 9 (7-16); Aspartate Amino Transferase 28 U/L (0-34); BUN/Creatinine Ratio 7 Ratio (12-20); Bilirubin,Total 0.3 mg/dL (0.3-1.2); Blood Urea Nitrogen 5 mg/dL (9-23); Calcium 8.3 mg/dL (8.3-10.6); Calcium (Corrected) 8.5 mg/dL (8.5-10.1); Carbon Dioxide 29.5 mMol/L (20.0-31.0); Chloride 104 mMol/L (98-107); Creatinine (Component) 0.7 mg/dL (0.6-1.3); Estimated Creatinine Clearance 96.7 mL/min (>60); Globulin 3.1 gm/dL (2.3-3.5); Glucose 95 mg/dL (74-106); Magnesium 2.2 mg/dL (1.6-2.6); Osmolality,Calculated 280 (275-295); Phosphorous 4.2 mg/dL (2.4-5.1); Potassium 3.6 mMol/L (3.4-5.1); Sodium 142 mMol/L (136-145); Total Protein 6.8 gm/dL (5.7-8.2); eGFR > 60 See Note
[2025-02-02 08:00] VITALS: BP 108/74; PULSE 79; RESP 18; TEMP 36.3; O2SAT 99
--- NOTE | 2025-02-02 08:37 | PD.SURPROG ---
Documentation for date of: 02/02/25 Subjective Subjective Narrative: Patient is seen and examined. Pain is improving. Her percutaneous drain was removed. Diet and having bowel movements Exam Vital Signs Temp Pulse Resp BP Pulse Ox O2 Del Method O2 Flow Rate 97.4 F 79 18 108/74 99 Room Air 2 02/02/25 08:00 02/02/25 08:00 02/02/25 08:00 02/02/25 08:00 02/02/25 08:00 02/02/25 08:00 02/02/25 00:00 Constitutional Constitutional: no acute distress Routine Abdominal Exam Comments: Abdomen is soft and nondistended. Minimal tenderness to deep palpation, no rebound tenderness or peritonitis Assessment & Plan Assessment Additional comments: Sigmoid diverticulitis with abscess status post percutaneous drainage Plan Clinically improved significantly. May discharge home on oral antibiotics. Follow-up with Dr Ford in 3 to 4 weeks
--- NOTE | 2025-02-02 08:39 | ESDS_ITS ---
<Statement entered by Anabela Barahona DO - 02/03/25 07:39> I, Anabela Barahona DO, attest that I was physically present for the cox portions of the service and evaluated the patient with the resident and I reviewed and discussed the case with the resident and agree with the resident's findings and plans of care as documented above Planned Discharge Date 02/02/25 DS: Providers Provider Date of admission: 01/29/25 08:32 Primary care physician: Physician No Primary/Family Admitting Provider: Michelle Paige MD Attending Provider on Admission: Anabela Barahona DO Consults: 01/29/25 09:10 Consult to General Surgery Routine Comment: Consulting Provider: Andrew Ford Attending Provider on DC: Anabela Barahona DO Discharging Provider: Austin Velasco MD Anticipated date of discharge: 02/02/25 DS: Diagnosis Problem List Completed Was Problem List Reviewed/Reconciled?: Yes Hospital Course Hospital Course Hospital course: 54-year-old female with no past medical history presented to the ED due to left lower quadrant abdominal pain. Patient was admitted for acute diverticulitis with peridiverticular abscess. During hospital stay patient was evaluated with imaging studies which show abscess. General surgery was consulted and recommended IR drainage of abscess. Patient had drainage of said abscess and was evaluated with postprocedural CT scans to show resolution of abscess. Patient was put on clear liquid diet and advance as tolerated. At this time patient is medically stable for discharge. Recommended to follow- up in the [facility] within 1 week of discharge to establish care with a primary care physician as patient does not have 1. Recommended to follow-up with Dr. Ford general surgeon in 3 to 4 weeks. Recommended to have colonoscopy in 6 to 8 weeks. You have been prescribed cefuroxime and Flagyl for an additional 10 more days. Should any symptoms recur or worsen patient is i nstructed to return to the ED. Problem list: #Acute diverticulitis #Diverticular abscess status post IR drainage #Asymptomatic bacteriuria #Uterine body mass Case discussed with my attending Dr. Jun Velasco MD PGY-1 Status at Discharge Functional status at discharge: independent ambulation Overall status at discharge: patient is back to baseline Time Spent with Patient Time attestation: Total time spent providing and/or coordinating discharge services: Time spent: Greater than 30 minutes Exam Vital Signs Temp Pulse Resp BP Pulse Ox O2 Del Method O2 Flow Rate 97.4 F 79 18 108/74 99 Room Air 2 02/02/25 08:00 02/02/25 08:00 02/02/25 08:00 02/02/25 08:00 02/02/25 08:00 02/02/25 08:00 02/02/25 00:00 Narrative Exam Physical Exam GENERAL: NAD, AAOx3 HEENT: Dry mucosa. Eyes open, symmetrical, & clear CARDIO: Heart RRR, no obvious murmurs PULM: No noted coughing/dyspnea CTA B/L, no R/W/R GI: Abdomen soft, nondistended, pain on palpation of left lower quadrant. BS+ SKIN/MSK/EXT: No wounds/rashes/edema/amputations, no pain on palpation. Pedal pulses present B/L NEURO: AAOx3, no focal neuro deficits, able to move all 4 extremities Discharge Plan Plan Patient Disposition: HOME (Self Care) Patient condition on transfer: Stable Care Plan Goals: Follow up with primary care physician within 1 week of discharge Follow up with Dr. Ford in 3-4 weeks You will need a colonoscopy in 6-8 weeks. Should your symptoms recur or worsen patient is instructed to return to the ED. Prescriptions/Referrals Prescriptions/Med Rec: New cefuroxime axetil 500 mg tablet 500 mg PO BID 10 Days Qty: 20 0RF metronidazole 500 mg tablet 500 mg PO BID 10 Days Qty: 20 0RF Referrals: No Primary/Family,Physician [Primary Care Provider] - Patient/Caregiver Discharge Instructions Print Language: Citizen Of [place] Stand Alone Forms: Patty Award Info., Patient Portal Info Letter Discharge Order Discharge Orders: Discharge (Routine); Ordered 02/02/25 Ordered By: Austin Velasco Quality Discharge Quality Measures VTE prophylaxis
[2025-02-02] MEDS: Milk Of Magnesia Susp 30 ML UDC PO (11:59)
[2025-02-02 12:00] VITALS: BP 113/80; PULSE 80; RESP 18; TEMP 36.7; O2SAT 94
== END 2025-02-02 12:36 | disposition home or self-care (01) | DRG 392 ==
LOC: SERX 08:19 → SERHOLD 09:00 → S3SX 15:13
PROVIDERS: Physician Assistant; Radiology Diagnostic Radiology; Student in an Organized Health Care Education/Training Program; Admitting Provider Internal Medicine; Emergency Provider Emergency Medicine; Visit Provider Internal Medicine
DX: K57.20 Diverticulitis of large intestine with perforation and abscess without bleeding (principal); N39.0 Urinary tract infection, site not specified; E87.1 Hypo-osmolality and hyponatremia; N20.0 Calculus of kidney; F17.210 Nicotine dependence, cigarettes, uncomplicated
CPT/HCPCS: 36415; 74177; 77001; 77012; 80053; 80061; 81001; 83605; 83690; 83735; 84100; 84443; 85025; 85610; 85730; 87040; 87070; 87077; 87186; 87205; 96361; 96365; 96375; 99285; A4649; J1171; J2270; J2405; J2543; J3010; J3490; J7030; Q9967; A9270; C1725

== ENCOUNTER 2025-02-08 10:39 | Outpatient (AMB) | payer SELFPAY ==
--- NOTE | 2025-02-08 10:45 | PD.RESCLINIC ---
Vital Signs 02/08/25 10:46 Height 1.57 m Height Method Stated Weight 95.368 kg Weight Measurement Method Standing Scale BMI 38.4 BP 143/89 H Blood Pressure Source Automatic Cuff Blood Pressure Location Right Upper Arm Position Sitting Respiration 18 Pulse 99 Pulse Source Monitor Temp 98.2 F Temp Source Temporal Artery Scan Pulse Oximetry (%) 96 Oxygen Delivery Method Room Air Allergies/Meds Allergies & Medications Allergies No Known Allergies Allergy (Verified 02/08/25 10:47) Medication Reconciliation cefuroxime axetil 500 mg tablet 500 mg PO BID 10 days #20 tabs 02/02/25 [Rx Confirmed 02/08/25] metronidazole 500 mg tablet 500 mg PO BID 10 days #20 tabs 02/02/25 [Rx Confirmed 02/08/25] MA Intake Visit Data Collection New Patient or Established: Established Patient (seen at [facility] within 3 years) Seen by Clinical Staff ONLY (RN/MA): No Pain Present Currently: No Pain scale:: 0 Pain Scale Used: Carbone-Bermudez/Numerical Transportation Operations Manager Required: No PCP or OBGYN visit in last 3 months: No Hx Now: No Do You Feel Safe at Home: Yes Authorities Contacted: N/A Smoking Status Smoking Status: Current every day smoker Cessation Counseling Provided: LUCIAN was advised that quitting smoking is the single most important factor to protect the health of themselves and their family. Discussed the benefits of quitting smoking with patient. Encouraged patient to quit smoking and provided Cessation assistance materials and resources. Tobacco Use: Cigarette (none) Years smoked: 0 Are you interested in quitting?: No Would you like additional Smoking Cessation Counseling?: No Immunization / Flu Flu Vaccine in the Last 12 Months: No Flu Vaccine Exclusion Criteria: No Exclusion Criteria Past Medical History Past Medical History CARDIAC: Negative Cardiac Disorders or Congestive Heart Failure RESPIRATORY: Negative Chronic Obstructive Pulmonary Disease (COPD) or Asthma GENITOURINARY: Negative Renal Disease ENDOCRINE: Negative Diabetes Mellitus Type 1 or Diabetes Mellitus Type 2 HEMATOLOGIC: Negative Sickle Cell Disease Family History FAMILY HISTORY: Positive Family Cardiac Disorders (Father- cardiac arrest); Negative Family Cancer Social History SMOKING STATUS: Smoking status: Current every day smoker ALCOHOL: Alcohol Intake: Current ALCOHOL FREQUENCY: Alcohol Intake Frequency: holidays/special occasions only HOUSING: Housing: House LIVES WITH: Lives With: Family Patient Portal Questionairdarryl Social History Living Situation History Housing: House Tobacco History Smoking Status: Current every day smoker Alcohol History Alcohol Intake: Current Alcohol Intake Frequency: holidays/special occasions only Domestic Abuse History Do You Feel Safe at Home: Yes Review of Systems Report any current symptoms Only answer those that you have currently: Past Medical History Past Medical History Have you ever been diagnosed with any of the following: Cardiology Problems Congestive Heart Failure: No Respiratory Problems Chronic Obstructive Pulmonary Disease (COPD): No Asthma: No Genital/Urinary Problems Renal Disease: No Endocrine Problems Diabetes Mellitus Type 1: No Diabetes Mellitus Type 2: No Blood Problems Sickle Cell Disease: No History of Present Illness HPI Narrative 54 y/o F with PMHx of diverticulosis with hx of peridiverticular abscess seen on january 2025 in the hospital who is here for follow up post-discharge and to establish care as a new patient. Patient states improvement in her symptoms compared to when she was in the hospital is completing her antibiotic therapy and has about 4 more days to finish the course. Patient has no PCP and would like to establish care. Lab aida slip was given to the patient with CBC, CMP, Lipid panel, TSH and A1c to be evaluated in the next visit. Aditionally here in the office patient was noted to have high blood pressure with SBP in the 140s, the patient states she parked pretty far away and was a bit flustered when her vitals are taken. Next visit patient will be sent referall to have colonoscopy as it should have been 6-8 weeks since hospital visit. Objective/Exam Narrative Physical exam: Physical Exam GENERAL: NAD, AAOx3 HEENT: Moist mucosa. Eyes open, symmetrical, & clear CARDIO: Heart RRR, no obvious murmurs PULM: No noted coughing/dyspnea CTA B/L, no R/W/R GI: Abdomen soft, nondistended, no pain on palpation. BS+, s/p IR drainage covered with bandaid, slight serosanguinous discharge very minimal SKIN/MSK/EXT: No wounds/rashes/edema/amputations, no pain on palpation. Pedal pulses present B/L NEURO: AAOx3, no focal neuro deficits, able to move all 4 extremities Assessment & Plan Diagnosis / Problem List (1) Colonic diverticular abscess: Status: Acute Plan: Currently completing oral antibiotic therapy. Will send referall for colonoscopy next month as it should have been 6-8 weeks by then. Follow up with Dr. Ford next month referall will be sent as well. (2) Establishing care with new doctor, encounter for: Status: Acute Plan: Routine labs sent CBC, CMP, TSH, A1C, lipid panel will review in next month Office Procedures [facility] Level of Care Nursing/Assessment Patient Status: Established Patient Nursing Assessment/Reassessment: Medication Reconciliation, Update PMH in EMR and Vital Signs Coordination of Care: Complex Care and Chronic Disease 1-5, Consent,records obtained, informed consent, Education Simp Pt/Fam and Staff clarify orders Established Patient Charge Established Patient Point Assignment: 85 Established Patient Point Charge: EP Level 3 (80-115)
[2025-02-08 10:46] VITALS: BP 143/89; PULSE 99; RESP 18; TEMP 36.8; O2SAT 96; BMI 38.4
== END 2025-02-08 11:49 | disposition home or self-care (01) ==
LOC: HODAHC 10:39
PROVIDERS: Supervising Provider Internal Medicine; Visit Provider Student in an Organized Health Care Education/Training Program
DX: K57.20 Diverticulitis of large intestine with perforation and abscess without bleeding (principal)
CPT/HCPCS: 99213; G0463

== ENCOUNTER 2025-05-17 10:01 | Outpatient (AMB) | payer BC, SELFPAY ==
[2025-05-17 10:17] VITALS: BP 111/75; PULSE 110; RESP 17; TEMP 36.6; O2SAT 97; BMI 30.2
--- NOTE | 2025-05-17 10:17 | ACNOTE_ITS ---
Vital Signs 05/17/25 10:17 Height 1.75 m Height Method Stated Weight 92.646 kg Weight Measurement Method Standing Scale BMI 30.2 BP 111/75 Blood Pressure Source Automatic Cuff Blood Pressure Location Right Upper Arm Position Sitting Respiration 17 Pulse 110 H Pulse Source Monitor Temp 97.8 F Temp Source Oral Pulse Oximetry (%) 97 Oxygen Delivery Method Room Air Allergies/Meds Allergies & Medications Allergies No Known Allergies Allergy (Verified 05/17/25 10:18) Medication Reconciliation No Known Home Medications 05/17/25 [History Confirmed 05/17/25] ciprofloxacin HCl 500 mg tablet 500 mg PO BID 14 days #28 tabs 05/17/25 [Rx] metronidazole 500 mg tablet 500 mg PO BID 14 days #28 tabs 05/17/25 [Rx] MA Intake Visit Data Collection New Patient or Established: Established Patient (seen at [facility] within 3 years) Seen by Clinical Staff ONLY (RN/MA): No Pain Present Currently: Yes Pain Location: Abdomen Pain scale:: 7 Pain Scale Used: Carbone-Bermudez/Numerical PCP or OBGYN visit in last 3 months: Yes Do You Feel Safe at Home: Yes Authorities Contacted: N/A Smoking Status Smoking Status: Current every day smoker Cessation Counseling Provided: CLAUDETTE was advised that quitting smoking is the single most important factor to protect the health of themselves and their family. Discussed the benefits of quitting smoking with patient. Encouraged patient to quit smoking and provided Cessation assistance materials and resources. Tobacco Use: Cigarette Years smoked: 0 Are you interested in quitting?: Yes Would you like additional Smoking Cessation Counseling?: Yes Immunization / Flu Flu Vaccine in the Last 12 Months: No Flu Vaccine Exclusion Criteria: No Exclusion Criteria Past Medical History Past Medical History CARDIAC: Negative Cardiac Disorders or Congestive Heart Failure RESPIRATORY: Negative Chronic Obstructive Pulmonary Disease (COPD) or Asthma GENITOURINARY: Negative Renal Disease ENDOCRINE: Negative Diabetes Mellitus Type 1 or Diabetes Mellitus Type 2 HEMATOLOGIC: Negative Sickle Cell Disease Family History FAMILY HISTORY: Positive Family Cardiac Disorders (Father- cardiac arrest); Negative Family Cancer Social History SMOKING STATUS: Smoking status: Current every day smoker ALCOHOL: Alcohol Intake: Current ALCOHOL FREQUENCY: Alcohol Intake Frequency: holidays/special occasions only HOUSING: Housing: House LIVES WITH: Lives With: Family Patient Portal Questionaires Social History Living Situation History Housing: House Tobacco History Smoking Status: Current every day smoker Alcohol History Alcohol Intake: Current Alcohol Intake Frequency: holidays/special occasions only Domestic Abuse History Do You Feel Safe at Home: Yes Review of Systems Report any current symptoms Only answer those that you have currently: Past Medical History Past Medical History Have you ever been diagnosed with any of the following: Cardiology Problems Congestive Heart Failure: No Respiratory Problems Chronic Obstructive Pulmonary Disease (COPD): No Asthma: No Genital/Urinary Problems Renal Disease: No Endocrine Problems Diabetes Mellitus Type 1: No Diabetes Mellitus Type 2: No Blood Problems Sickle Cell Disease: No History of Present Illness HPI Narrative Claudette Jackson is a 54-year-old female with a past medical history of diverticulosis with history of peridiverticular abscess that was managed at [facility] on January 2025. She has already followed-up here at the [facility] s/p discharge to establish care. She presents today due to left lower quadrant discomfort as well as pain that tends to come and go. Endorses some associated fever, chills, and sweats but no issues using the restroom. States that symptoms started about one week after starting work. She has not followed-up with general surgery who did incision and drainage but site appears to be healing well. Skin is erythematous and firm. She was given option to be prescribed antibiotics now and to monitor for worsening signs and symptoms with an order for CT A/P outpatient or to go to the ED as it will likely result in quicker imaging but she elected for outpatient management with strict ED precautions. Review of Systems Review of Systems Systems Reviewed: All systems reviewed, normal except as documented Objective/Exam Narrative Physical exam: General: AOx3, no acute distress, able to speak full sentences HEENT: NC/AT, mucous membranes moist, bilateral sclera anicteric Cardiovascular: regular rate and rhythm, S1/S2 present, no murmurs appreciated Pulmonary: clear to auscultation bilaterally, no rales/rhonchi/wheezes Abdominal: soft, non-tender, non-distended, no rebound/guarding, normal bowel sounds present Musculoskeletal: normal ROM, no peripheral edema Skin: erythematous and firm section of skin on left lower quadrant near incision and drainage site but no drainage noted Neuro: CN II-XII intact, no focal deficits Assessment & Plan Diagnosis / Problem List (1) Abdominal pain: Status: Acute Qualifiers: Abdominal location: left lower quadrant Qualified Code(s): R10.32 - Left lower quadrant pain Assessment & Plan: Cellulitis vs abscess in context of history of I&D for diverticular abscess. Associated fever, chills, and sweats. Will prescribe antibiotics and CT A/P with contrast for evaluation but with strict precautiosn to go to the ED if sy mptoms worsen. Plan: - Cipro and flagyl for 14 days - CT A/P - Strict ED precautions Orders: Orders CT abdomen pelvis w con 05/17/25 K57.20 - Diverticulitis of large intestine with perforation and abscess without bleeding, R10.9 - Unspecified abdominal pain Additional Assessment Attending note: I, Rivera Taylor MD, attest that I was physically present for the cox portions of the service and evaluated the patient with the resident and I reviewed and discussed the case with the resident and agree with the resident's findings and plans of care as documented above. Rivera Taylor MD Physician Billing Established Patient Established Patient: E/M Level 3-CPT 43888 Office Procedures [facility] Level of Care Nursing/Assessment Patient Status: Established Patient Nursing Assessment/Reassessment: Medication Reconciliation, Update PMH in EMR and Vital Signs Coordination of Care: Complex Care and Chronic Disease 1-5, Education Complex Pt/Fam and Staff clarify orders Established Patient Charge Established Patient Point Assignment: 85 Established Patient Point Charge: EP Level 3 (80-115)
== END 2025-05-17 11:18 | disposition home or self-care (01) ==
LOC: HODAHC 10:01
PROVIDERS: PCP Student in an Organized Health Care Education/Training Program; Referring Provider Student in an Organized Health Care Education/Training Program; Supervising Provider Internal Medicine
DX: R10.32 Left lower quadrant pain (principal); L53.9 Erythematous condition, unspecified
CPT/HCPCS: 99213; G0463

== ENCOUNTER 2025-06-07 16:47 | Inpatient (IN) | payer BC, SELFPAY ==
[2025-06-07 16:53] VITALS: BP 122/88; PULSE 115; RESP 18; TEMP 37.6; O2SAT 96; BMI 31.6
--- NOTE | 2025-06-07 17:07 | PD.EDRME ---
Rapid Medical Screening Exam RME Arrival date/time: 06/07/25 16:47 55-year-old female with a history of diverticulosis with hx of peridiverticular abscess seen on january 2025 in the hospital presents to the emergency room with a chief complaint of left lower abdominal tenderness, erythema, distention x 3 days. I have greeted and performed a focused initial assessment of this patient. A comprehensive ED assessment and evaluation of the patient, analysis of all test results, and completion of the medical decision making process will be conducted by additional ED providers. Chief Complaint: Abdominal Pain Vital signs: Vital Signs Temperature 99.6 F 06/07/25 16:53 Pulse Rate 115 H 06/07/25 16:53 Respiratory Rate 18 06/07/25 16:53 Blood Pressure 122/88 H 06/07/25 16:53 Pulse Oximetry (%) 96 06/07/25 16:53 Oxygen Delivery Method Room Air 06/07/25 16:53 Vital signs reviewed by provider: Yes
--- NOTE | 2025-06-07 17:08 | XR_ITS ---
Examination: CT abdomen with intravenous contrast CT pelvis with intravenous contrast 2-D coronal reconstructions 2-D sagittal reconstructions Date and time of exam:June 07, 2025, 1835 hrs., Comparison January 31, 2025 Indications: Generalized abdominal pelvic pain today. CTDI: vol (mGy) 11.9 DLP: (mGycm) 729 Technique: Multiple axial sections of the abdomen and pelvis have been obtained. 64 slice high-resolution scanner used. 3 mm axial sections have been obtained, post intravenous injection 60 cc [id number] 2-D sagittal, coronal reconstructions obtained. Low dose protocols were performed. One or more of the following dose reduction techniques were used; automated exposure control, adjustment of the mA and/or KV according to patient size, use of iterative reconstruction technique. Findings: Diffuse fatty infiltration throughout the liver, liver mildly irregular in contour Gallstones, axial image 88 Spleen is not enlarged No pancreatic or adrenal mass Severe scarring left kidney 4 mm upper pole left renal calculus, no hydronephrosis or ureteral calculi Aorta normal size Normal appendix Abnormal sigmoid colon, marked wall thickening, maximum transverse dimension 6.81 cm, mediolateral dimension of this probable tumor mass at least 11.6 cm This tumor mass is invading and extending through the anterior pelvic wall into the subcutaneous fatty tissue, the mass portion in the subcutaneous fatty tissue measuring at least 4.9 x 5.9 cm Uterus is not enlarged There is there is mild free fluid in the pelvis Impression: Severe scarring left kidney, 4 mm upper pole left renal calculus Large mass in the sigmoid colon, likely tumor mass which is invading the left anterior pelvic wall and extending through the pelvic wall into the subcutaneous fatty tissue of the anterior left pelvic wall, sigmoid colon marked inflammation or diverticulitis less likely but not excluded Recommend surgical consultation
[2025-06-07 18:06] LABS: Lactate (Lactic Acid) 1.5 mMol/L (0.4-2.0)
[2025-06-07 18:07] LABS: Basophils # (Auto) 0.0 Thou/mm3 (0.0-0.2); Basophils % (Auto) 0 % (0-2.5); Eosinophils # (Auto) 0.1 Thou/mm3 (0.0-0.5); Eosinophils % (Auto) 1 % (0-10); Hematocrit 33.5 % (36.0-46.0); Hemoglobin 10.4 g/dL (12.0-16.0); Immature Granulocytes Auto 0.04 Thou/mm3 (0.00-0.00); Lymphocytes # (Auto) 1.7 Thou/mm3 (1.0-4.8); Lymphocytes % (Auto) 15 % (10-50); Mean Corpuscular HGB Conc 31.0 g/dl (31.0-37.0); Mean Corpuscular Hemoglobin 25.9 pg (25.0-35.0); Mean Corpuscular Volume 84 fL (80-100); Monocytes # (Auto) 1.0 Thou/mm3 (0.0-0.8); Monocytes % (Auto) 9 % (0-12); Neutrophils # (Auto) 8.4 Thou/mm3 (1.8-7.7); Neutrophils % (Auto) 74 % (37-80); Nucleated Red Blood Cell # 0.00 Thou/mm3 (0.00-0.00); Nucleated Red Blood Cell % 0 /100 WBC (0); Platelet Count 348 Thou/mm3 (140-440); RDW Standard Deviation 49.2 fL (36.4-46.3); Red Blood Count 4.01 Miln/mm3 (4.00-5.20); White Blood Count 11.3 Thou/mm3 (3.6-11.0)
[2025-06-07 18:35] LABS: Alanine Aminotransferase 16 U/L (10-49); Albumin, Serum 4.3 gm/dL (3.5-5.0); Albumin/Globulin Ratio 1.3 (1.2-2.2); Alkaline Phosphatase 82 U/L (46-116); Anion Gap 11 (7-16); Aspartate Amino Transferase 21 U/L (0-34); BUN/Creatinine Ratio 10 Ratio (12-20); Bilirubin,Total 0.9 mg/dL (0.3-1.2); Blood Urea Nitrogen 10 mg/dL (9-23); Calcium 9.8 mg/dL (8.3-10.6); Calcium (Corrected) 9.8 mg/dL (8.5-10.1); Carbon Dioxide 25.7 mMol/L (20.0-31.0); Chloride 102 mMol/L (98-107); Creatinine (Component) 1.0 mg/dL (0.6-1.3); Estimated Creatinine Clearance 72.3 mL/min (>60); Globulin 3.4 gm/dL (2.3-3.5); Glucose 112 mg/dL (74-106); Lipase 17 U/L (12-53); Osmolality,Calculated 277 (275-295); Potassium 4.0 mMol/L (3.4-5.1); Procalcitonin 0.13 ng/ml (0.0-0.49); Sodium 139 mMol/L (136-145); Total Protein 7.7 gm/dL (5.7-8.2); eGFR > 60 See Note
[2025-06-07 20:27] LABS: Collection Type, Urine Clean Catch
--- NOTE | 2025-06-07 20:31 | EDNOTE_ITS ---
ED Abdominal Pain RME/HPI General Chief Complaint: Abdominal Pain Stated complaint: left lower abdominal pain Time seen by provider: 06/07/25 18:35 Arrival date/time: 06/07/25 16:47 RME / HPI RME / HPI narrative: 55-year-old female patient with a history of diverticulitis in the past, with peridiverticular abscess, seen last January 2025 for percutaneous draining was done by our radiologist, and was admitted during that time, came in for evaluation regarding puslike drainage to the left lower abdomen, with redness and swelling. Patient been having on and off abdominal pain for more than 3 weeks, sometimes having low-grade fever. Was seen by [facility], and was started on 2 weeks Cipro and Flagyl. Patient was advised to have outpatient CT scan however patient did not have the CT scan done. Patient noticed more worsening swelling and tenderness for 1 week now. Today patient noticed puslike drainage. No fever noted denies any other complaints. Related Data Home Medications ?Medication ?Instructions ?Recorded ?Confirmed No Known Home Medications 05/17/2502/03 Allergies Allergy/AdvReac Type Severity Reaction Status Date / Time No Known Allergies Allergy Verified 06/07/25 16:52 Review of Systems Review of Systems Narrative Review of Systems: Review of system reviewed and within normal limits except mentioned in HPI ED Exam Narrative Physical exam: VITAL SIGNS: Reviewed. GENERAL APPEARANCE: Alert and interactive, follows commands, no acute distress, HEAD AND FACE: Non-traumatic. ENT: PERRL, pink conjunctivitis, eyelid no trauma, Mucous membrane moist. NECK: Supple, nontender, no nuchal rigidity. CHEST: No tenderness, no crepitus, no paradoxical movement, no retractions. LUNGS: Clear, well ventilated, symmetric, no rales, no wheezing, no ronchi, no stridor, good breath sounds bilaterally. HEART: Regular rate, regular rhythm, no murmur, no gallops. ABDOMEN: Soft, positive bowel sounds, nondistended, no guarding, redness swelling, left lower quadrant abdomen with puslike drainage no rebound RECTAL: Deferred. GENITAL: Deferred. NEUROLOGICAL: Gross motor function intact sensory function intact, Appropriate for age. MUSCULOSKELETAL: low back nontender, full range of motion. EXTREMITIES: Nontender, full range of motion. SKIN: Color pink, dry, no rash, no lacerations, no abrasions, no contusions. LYMPHATICS: Deferred. Course Quality Measures none Orders Category Date Time Status COVID-19 Screening Questionnaire NOW Care 06/07/25 20:[address] Screening NOW Care 06/07/25 17:08 Active Decision to Admit X1 Care 06/07/25 20:55 Active Consult to General Surgery Stat Cons 06/07/25 20:[address] abdomen pelvis w con Stat Exams 06/07/25 17:08 Completed Blood Culture (Lab) Stat Lab 06/07/25 17:34 Received CBC Stat Lab 06/07/25 17:30 Completed CMP [Comprehensive Metabolic Panel] Stat Lab 06/07/25 17:30 Completed HCG Qualitative,Urine Stat Lab 06/07/25 20:16 Completed Lactate (Lactic Acid) Stat Lab 06/07/25 17:30 Completed Lipase Stat Lab 06/07/25 17:30 Completed Procalcitonin Stat Lab 06/07/25 17:30 Completed UA [Urinalysis] Stat Lab 06/07/25 20:16 Completed Urine Culture Stat Lab 06/07/25 20:16 Received Acetaminophen Tab [Tylenol ES Tab] Med 06/07/25 20:53 Discontinued 1,000 mg PO X1 ONE Piper/Tazo 3.375 gm Premix [Zosyn] Med 06/07/25 20:12 Discontinued 3.375 gm in 50 ml IV X1 Ringers Lactated 1000 ml [Lactated Ringers] 1,000 ml Med 06/07/25 20:13 Active IV 999 mls/hr metroNIDAZOLE/NS 500 MG IVPB [Flagyl 500 mg IV] Med 06/07/25 20:13 Active 500 mg in 100 ml IV X1 Vital Signs Vital signs: Vital Signs Temperature 99.6 F 06/07/25 16:53 Pulse Rate 115 H 06/07/25 16:53 Respiratory Rate 18 06/07/25 16:53 Blood Pressure 122/88 H 06/07/25 16:53 Pulse Oximetry (%) 96 06/07/25 16:53 Oxygen Delivery Method Room Air 06/07/25 16:53 Abdominal Pain MDM MDM Narrative MDM Narrative:: 55-year-old female patient with a history of diverticulitis in the past, with peridiverticular abscess, seen last January 2025 for percutaneous draining was done by our radiologist, and was admitted during that time, came in for evaluation regarding puslike drainage to the left lower abdomen, with redness and swelling. Patient been having on and off abdominal pain for more than 3 weeks, sometimes having low-grade fever. [facility] and was started on 2 weeks Cipro and Flagyl. Patient was advised to have outpatient CT scan however patient did not have the CT scan done. Patient noticed more worsening swelling and tenderness for 1 week now. Today patient noticed puslike drainage. No fever noted denies any other complaints. Sepsis alert was initiated due to fever and tachycardia. And a source of infection. Patient workup today is significant for slight leukocytosis of 11.3 CMP came back unremarkable. Urinalysis no UTI. CT scan of the abdomen pelvis showed Severe scarring left kidney, 4 mm upper pole left renal calculus Large mass in the sigmoid colon, likely tumor mass which is invading the left anterior pelvic wall and extending through the pelvic wall into the subcutaneous fatty tissue of the anterior left pelvic wall, sigmoid colon marked inflammation or diverticulitis less likely but not excluded Recommend surgical consultation Patient was started on IV fluids, Tylenol, IV Zosyn and IV Flagyl. I consulted Dr. Ramirez , general surgeon on-call, discussed the case, and told me that as the hospitalist to admit the patient he will see the patient also. Thank you Plan of care discussed with the patient who agrees to be admitted. Patient data External records reviewed:: None Clinical information provided by:: patient Social determinants that could affect healthcare access:: none Patient has the following chronic illnesses:: History of diverticulitis in the past with peridiverticular abscess. How is presenting disease/condition affected by chronic disease/condition?: exacerbated by Evaluation data The following diagnostics were reviewed and interpreted by me:: lab results and radiology exam(s) Lab and/or radiology exams considered but not ordered:: Plan Interpretation Summary: See results MDM Medications / Prescriptions Medications or Prescriptions considered but not ordered:: None Medication administrations:: Medication Administration History Metronidazole (Flagyl 500 Mg Iv) 500 mg in 100 mls @ 100 mls/hr IV X1 ONE Stop: 06/07/25 21:12 Lactated Ringer's (Lactated Ringers) 1,000 mls @ 999 mls/hr IV .Q1H1M ONE Stop: 06/07/25 21:13 Discontinued Medications Acetaminophen (Acetaminophen 500 Mg Tablet) 1,000 mg PO X1 ONE Stop: 06/07/25 20:54 Piperacillin/Tazobactam/Dextrose (Zosyn) 3.375 gm in 50 mls @ 100 mls/hr IV X1 ONE; Protocol Stop: 06/07/25 20:41 Last Admin: 06/07/25 20:43 Dose: 100 mls/hr Documented By: DANIS Wiseman IV fluids Zosyn and Tylenol Consultations Consultation(s) initiated? (list below): Yes Consultation #1 (Physician, Specialty, Details): Spoke with general surgeon on-call, Dr Ramirez, thank you Dr. Diagnosis Differential diagnosis abdominal pain: abdominal pain and other (Intra-abdominal abscess with extension to the skin, abdominal pain, fever sepsis) Most likely diagnosis given after review of the tests above:: Intra-abdominal abscess, sepsis Admission Indicated Admission indicated?: indicated Admission Request Was there a request for admission?: Yes Admission Attestation Admission request attestation: Discussed case with [Dr. Bradley] from Hospitalist service regarding admission. Discussed patients ED course, exam findings, labs, and radiology results. The Hospitalist [agrees] to accept the patient for admission. Disposition Plan Disposition Plan: Admit Discharge Plan Plan Patient Disposition: Admit Acute Care w/in Hospital Prescriptions/Referrals Prescriptions/Med Rec: No Action No Known Home Medications Referrals: Austin Meza MD [Primary Care Provider, Internal Medicine] - In 1 week Problem List Clinical Impression: Intra-abdominal abscess, Sepsis Patient/Caregiver Discharge Instructions Print Language: [place] Stand Alone Forms: Patty Award Info., Patient Portal Info Letter
[2025-06-07 20:35] LABS: HCG Qualitative,Urine Negative
[2025-06-07 20:42] LABS: Amorphous Crystals,Urine Present (Absent); Bacteria,Urine 1+; Bilirubin,Urine Negative (Negative); Blood,Urine Trace (Negative); Clarity,Urine Turbid (Clear/Hazy); Color,Urine Yellow (Lt Yel-Yel); Glucose, Urine Negative (Negative); Ketones,Urine Negative (Negative); Leukocyte Esterase,Urine Negative (Negative); Nitrite,Urine Negative (Negative); PH,Urine 6.5 (5.0-7.0); Protein,Urine 1+ (Neg - Trace); RBC,Urine 7 /hpf (0-3); Specific Gravity,Urine 1.029 (1.001-1.035); Squamous Epithelial Cell,Urine 11 /hpf (0-5); Urobilinogen,Urine 6.0 mg/dL (0.0-1.0); WBC,Urine 2 /hpf (0-5)
[2025-06-07] MEDS: PIPER/TAZO 3.375 GM PREMIX 3.375 GM/50 ML BAG IV (20:43)
[2025-06-07 20:52] VITALS: BP 115/71; PULSE 111; RESP 14; TEMP 38.1; O2SAT 99
[2025-06-07] MEDS: RINGERS LACTATED 1000 ML 1,000 ML 999 ML IV (21:16)
[2025-06-07 21:18] VITALS: TEMP 38.1
[2025-06-07] MEDS: metroNIDAZOLE/NS 500 MG IVPB 500 MG/100 ML BAG 100 MG IV (21:18)
[2025-06-07] MEDS: ACETAMINOPHEN 500 MG TABLET 1000 MG PO (21:18)
[2025-06-07 22:18] VITALS: TEMP 37.1
--- NOTE | 2025-06-07 22:55 | ESHP_ITS ---
Documentation for date of: 06/07/25 HPI - Hospitalist History of Present Illness History of Present Illness: Abdominal tenderness and drainage History of present illness: 55 year-old female with PMHx of diverticulosis with peridiverticular abscess requiring percutaneous drainage in 02/03 presented to ED for complaint of LLQ pain. Patient reports 3 weeks of LLQ pain, erythema and swelling, she also notes 3 days of fever and chills. She was seen by her primary care physician and was started on ciprofloxacin along with metronidazole 2 weeks prior to admission, symptoms significantly improved while on antibiotic but reoccurred a few days after antibiotics were completed. On day of admission patient reports spontaneous rupture with bloody discharge and significant pain improvement. Denies any other symptoms including constipation, diarrhea, bloody stool or weight loss. At ED patient's vitals were noted for mild temp of 100.5, tachycardia with HR 111, CBC/CMP were only noted for WBC 11.3, Hgb 10.4. CT A/P showed findings consistent with large mass in sigmoid colon with possible concern for tumor growth. Imaging was also noted for sigmoid colon inflammation and severe left renal scarring and 4 mm renal calculi with no hydro nephrosis. Patient never underwent colonoscopy prior. General surgery?Dr. Ramirez was consulted by ED and will evaluate patient for possible surgical intervention. Patient was admitted for management of sigmoid colon. PMHx: As above SxHx: Tubal ligation Social Hx: Half a pack of cigarettes per day, denies alcohol/substance use FHx: Unknown Allergies: NKDA Home meds: none Review of Systems Review of Systems Systems Reviewed: All systems reviewed, normal except as documented Past Medical History Social History SMOKING STATUS: Never smoker SUBSTANCE USE: does not use ALCOHOL: Never Meds Home Medications and Allergies Home Medications ?Medication ?Instructions ?Recorded ?Confirmed ?Type No Known Home Medications 05/17/2505/14 History Allergies Allergy/AdvReac Type Severity Reaction Status Date / Time No Known Allergies Allergy Verified 06/07/25 16:52 Exam Vital Signs Temp Pulse Resp BP Pulse Ox O2 Del Method 98.5 F 67 16 110/73 97 Room Air 06/08/25 00:00 06/08/25 00:00 06/08/25 00:00 06/08/25 00:00 06/08/25 00:00 06/08/25 00:00 Narrative General: Obese, not in any acute distress, normal mood and affect. HEENT: Normocephalic, atraumatic, anicteric, EOM intact, PERRLA, moist mucous membranes. Heart: RRR, no murmur or gallop. Lungs: Clear to auscultation with equal breath sounds bilaterally. Abdomen: Bowel sounds normal, mildly distended, mild tenderness over LLQ with erythema and solid mass with purulent discharge. Extremities: Sensation, circulation &motor function intact and equal in all extremities. Neurologic: Alert and oriented to name, place and date of , CN II-XII intact, able to move all extremities, DTRs normal Skin: Warm, dry, no rashes or ecchymosis noted. Results - Hospitalist Labs Diagrams: 06/08/25 05:19 Labs: Short CBC 06/07/25 06/08/25 Range/Units 17:30 05:19 WBC 11.3 H 8.5 (3.6-11.0) Thou/mm3 Hgb 10.4 L 8.6 L (12.0-16.0) g/dL Hct 33.5 L 28.0 L (36.0-46.0) % Plt Count 348 254 D (140-440) Thou/mm3 BMP 06/07/25 17:30 Sodium 139 Potassium 4.0 Chloride 102 Carbon Dioxide 25.7 BUN 10 Creatinine 1.0 Glucose 112 H Calcium 9.8 Liver Function 06/07/25 Range/Units 17:30 Total Bilirubin 0.9 (0.3-1.2) mg/dL AST 21 (0-34) U/L ALT 16 (10-49) U/L Alkaline Phosphatase 82 (46-116) U/L Albumin 4.3 (3.5-5.0) gm/dL Urine 06/07/25 Range/Units 20:16 Urine Color Yellow (Lt Yel-Yel) Urine Clarity Turbid A (Clear/Hazy) Urine pH 6.5 (5.0-7.0) Ur Specific [place] 1.029 (1.001-1.035) Urine Protein 1+ A (Neg - Trace) Urine Glucose (UA) Negative (Negative) Assessment & Plan -Hospitalist Additional Plan Additional Plan: 55 year-old female with PMHx of diverticulosis with peridiverticular abscess requiring percutaneous drainage in 02/03 admitted for management of sigmoid colon abscess #Sigmoid colon abscess #Diverticulitis #R/O malignancy No prior colonoscopy Presentation and exam and labs suggestive of abscess rather than tumor. IVF started NPO Cipro and metro Pain managment F/U blood cultures and labs Surgery consulted, recs appreciated. #Chronic normocytic anemia Hgb around 11 since 02/03 At admission Hgb 10.4 Trend Hgb Iron studies Colonoscopy when possible. #L/ Renal calculi #Chronic kidney disease #Severe left renal scarring Noted on CT A/P No prior diagnosis No CVA tenderness/hematuria or hydronephrosis on imaging Recommend Nephro referral by pcp after discharge. Health maintenance: DVT prophylaxis: Heparin 5000 SC BID daily (Start at 14:00 for possible sx intervention) Diet: NPO for possible surgical intervention IV access: PIV CODE STATUS: Full code Plan of care discussed with patient and is in agreement. Quality Measures Quality Measures VTE prophylaxis
[2025-06-07 23:14] VITALS: PULSE 94; RESP 18; RESP 99
[2025-06-07 23:22] VITALS: BP 106/74; PULSE 90; RESP 18; TEMP 36.7; O2SAT 99
[2025-06-08] VITALS (8 sets, daily range): BP systolic 98–118; BP diastolic 66–78; PULSE 67–102; RESP 16–96; TEMP 36.1–36.9; O2SAT 96–98; BMI 31.7
[2025-06-08] MEDS: SODIUM CHLORIDE 0.9% 1000 ML 1,000 ML 999 ML IV (00:31)
[2025-06-08] MEDS: SODIUM CHLORIDE 0.9% 1000 ML 1,000 ML 125 ML IV (01:30)
[2025-06-08] MEDS: CIPROFLOXACIN/D5w 400 MG IVPB 400 MG/200 ML BAG 200 MG IV ×2 (03:51→09:18)
[2025-06-08] MEDS: metroNIDAZOLE/NS 500 MG IVPB 500 MG/100 ML BAG 200 MG IV ×2 (05:07→13:47)
[2025-06-08 06:19] LABS: Basophils # (Auto) 0.0 Thou/mm3 (0.0-0.2); Basophils % (Auto) 0 % (0-2.5); Eosinophils # (Auto) 0.1 Thou/mm3 (0.0-0.5); Eosinophils % (Auto) 2 % (0-10); Hematocrit 28.0 % (36.0-46.0); Immature Granulocytes Auto 0.04 Thou/mm3 (0.00-0.00); Lymphocytes # (Auto) 1.1 Thou/mm3 (1.0-4.8); Lymphocytes % (Auto) 12 % (10-50); Mean Corpuscular HGB Conc 30.7 g/dl (31.0-37.0); Mean Corpuscular Hemoglobin 26.3 pg (25.0-35.0); Mean Corpuscular Volume 86 fL (80-100); Monocytes # (Auto) 0.9 Thou/mm3 (0.0-0.8); Monocytes % (Auto) 11 % (0-12); Neutrophils # (Auto) 6.3 Thou/mm3 (1.8-7.7); Neutrophils % (Auto) 75 % (37-80); Nucleated Red Blood Cell # 0.00 Thou/mm3 (0.00-0.00); Nucleated Red Blood Cell % 0 /100 WBC (0); Platelet Count 254 Thou/mm3 (140-440); RDW Standard Deviation 49.3 fL (36.4-46.3); Red Blood Count 3.27 Miln/mm3 (4.00-5.20); White Blood Count 8.5 Thou/mm3 (3.6-11.0)
[2025-06-08 06:21] LABS: Hemoglobin 8.6 g/dL (12.0-16.0)
[2025-06-08 06:23] LABS: Glucose Estimated Average 105 mg/dL (80-131); Hemoglobin A1C 5.3 % Hgb (4.8-6.0)
[2025-06-08 06:33] LABS: INR 1.1 (0.9-1.3); Partial Thromboplastin Time 31.2 Seconds (22.0-36.0); Prothrombin Time 12.3 Seconds (9.0-12.2)
[2025-06-08 06:47] LABS: Anion Gap 7 (7-16); BUN/Creatinine Ratio 14 Ratio (12-20); Blood Urea Nitrogen 7 mg/dL (9-23); Calcium 8.8 mg/dL (8.3-10.6); Carbon Dioxide 24.8 mMol/L (20.0-31.0); Chloride 108 mMol/L (98-107); Creatinine (Component) 0.5 mg/dL (0.6-1.3); Estimated Creatinine Clearance 145.0 mL/min (>60); Glucose 107 mg/dL (74-106); Magnesium 2.0 mg/dL (1.6-2.6); Osmolality,Calculated 277 (275-295); Potassium 3.4 mMol/L (3.4-5.1); Sodium 140 mMol/L (136-145); eGFR > 60 See Note
--- NOTE | 2025-06-08 10:17 | ESPR_ITS ---
<Statement entered by Priscilla Barajas MD - 06/08/25 17:31> Patient seen and examined at bedside. Patient currently denies any fevers or abdominal pain. Patient states that her pain resolved immediately after her abscess ruptured prior to coming to the ER. Patient does appear to have some tenderness right below drainage in her left lower quadrant. Patient will continue to be on IV Cipro and metronidazole. General surgery consulted, recommends IR evaluation for percutaneous drainage. Will continue to monitor for patient's pain and vital signs. I discussed with and supervised the analysis intern physician who took care of this patient. I personally saw and examined the patient and discussed the assessment and plan with the entire medicine team, including my attending Dr. Barahona, I agree with most of the assessment and plan as documented below Priscilla Barajas M.D. PGY-3 Disclaimer: Despite multiple revisions, due to the dictation software being used, the document bellow may not be free of grammatical errors including phonetic/typographic errors. However, this does not deter from our commitment to providing health care in the patient's best interest in mind. Documentation for date of: 06/08/25 Subjective Subjective Interval history: Ms Jackson is a 55 yof with a h/o of diverticulosis with peridiverticular abscess requiring percutaneous drainage in 02/03 presented to ED for complaint of LLQ pain, erythema, swelling, blister formation with rupture and purulent drainage, was admitted for management of peridiverticular abcess. Patient reports 3 weeks of LLQ pain, erythema and swelling, she also notes 3 days of fever and chills. Had been previously been treated 3 weeks ago with cipro and metronidazole, symptoms improved intially then worsened. She had an elevated temperature on this admission of 100.[address] scan that demonstrated a very large mass-like structure in the sigmoid colon. Given the constellation of symptoms, this is felt to be most consistent with recurrence of diverticular abcess. 11/08 Patient examined at bedside, NAOE. Currently denying fevers and abdominal pain. Exam notable for significant drainage through her bandage and a palpable, longitudenal mass in the LLQ just superior to the draining skin break. Dr. Ramirez with general surgery consulted, recommending IR evaluation for percutaneous drainage. Continuing antibiotics ciprofloxacin and metronidazole for. Monitor for improvment. Exam Vital Signs Temp Pulse Resp BP Pulse Ox O2 Del Method 96.9 F 91 18 98/66 98 Room Air 06/08/25 08:00 06/08/25 08:00 06/08/25 08:00 06/08/25 08:00 06/08/25 08:00 06/08/25 08:00 Narrative Exam General: Patient laying in bed comfortably, no acute distress, HEENT: Mucosa moist. Pupils are equal and reactive to light bilaterally Cardiovascular: Normal S1 and S2. Regular rate and rhythm. No murmur appreciated Respiratory: Clear to auscultation bilaterally without wheezes or crackles. Abdomen: Soft, nontender, not distended, There is a LLQ longitudenal firmness extending medial to lateral. Feels almost cylindrical. Bandage is overlying an ulceration that is just inferior to this firmness, saturated with seropurulent material. Skin: Dry, no rashes or bruising Musculoskeletal: No gross injuries. Able to move all 4 extremities. Non edematous lower extremities. Neuro: Alert and oriented x3. No focal neuro deficits. Psych: Normal affect and mood Objective Labs 06/09/25 05:40 06/09/25 05:40 Labs: Laboratory Results - last 24 hr 06/07/25 06/07/25 06/08/25 17:30 20:16 05:19 WBC 11.3 H 8.5 RBC 4.01 3.27 L Hgb 10.4 L 8.6 L Hct 33.5 L 28.0 L MCV 84 86 MCH 25.9 26.3 MCHC 31.0 30.7 L RDW Std Deviation 49.2 H 49.3 H Plt Count 348 254 D Neut % (Auto) 74 75 Lymph % (Auto) 15 12 [place] % (Auto) 9 11 Eos % (Auto) 1 2 Baso % (Auto) 0 0 Neut # (Auto) 8.4 H 6.3 Lymph # (Auto) 1.7 1.1 [place] # (Auto) 1.0 H 0.9 H Eos # (Auto) 0.1 0.1 Baso # (Auto) 0.0 0.0 Immature Gran # (Auto) 0.04 H 0.04 H Absolute Nucleated RBC 0.00 0.00 Immature Gran % 0 1 H Nucleated RBC % 0 0 PT 12.3 H INR 1.1 APTT 31.2 Sodium 139 140 Potassium 4.0 3.4 D Chloride 102 108 H Carbon Dioxide 25.7 24.8 Anion Gap 11 7 BUN 10 7 L Creatinine 1.0 0.5 L D Estim Creat Clear Calc 72.3 145.0 eGFR > 60 > 60 BUN/Creatinine Ratio 10 L 14 Glucose [address] Glu mg/dL 105 Hemoglobin A1c 5.3 Calculated Osmolality 277 277 Lactic Acid 1.5 Calcium 9.8 8.8 Corrected Calcium 9.8 Magnesium 2.0 Total Bilirubin 0.9 AST 21 ALT 16 Alkaline Phosphatase 82 Total Protein 7.7 Albumin 4.3 Globulin 3.4 Albumin/Globulin Ratio 1.3 Lipase 17 Procalcitonin 0.13 Ur Collection Type Clean Catch Urine Color Yellow Urine Clarity Turbid A Urine pH 6.5 Ur Specific [place] 1.029 Urine Protein 1+ A Urine Glucose (UA) Negative Urine Ketones Negative Urine Blood Trace Urine Nitrite Negative Urine Bilirubin Negative Urine Urobilinogen (Auto) 6.0 Ur Leukocyte Esterase Negative Urine RBC 7 H Urine WBC 2 Ur Squamous Epith Cells 11 H Amorphous Crystals Present A Urine Bacteria 1+ A Urine HCG, Qual Negative Quality Measures Quality Measures VTE prophylaxis Assessment & Plan Assessment Current Active Medications: Generic Name Dose Route Start Last Admin Trade Name Freq PRN Reason Stop Dose Admin Acetaminophen 650 mg 06/07/25 22:29 Acetaminophen 325 Mg Tablet PO 07/07/25 22:28 Q6H PRN Fever >101.5 Heparin Sodium (Porcine) 5,000 unit 06/08/25 14:00 Heparin Sod Inj 5000 Unit/Ml Vial SC 06/22/25 13:59 Q8HR BRIANNA Ciprofloxacin/Dextrose 400 mg in 200 mls @ 200 mls/hr 06/08/25 04:00 06/08/25 09:18 Cipro Ivpb IV 06/15/25 03:59 200 mls/hr Q12HR BRIANNA Administration Metronidazole 500 mg in 100 mls @ 200 mls/hr 06/08/25 06:00 06/08/25 05:07 Flagyl 500 Mg Iv IV 06/15/25 05:59 200 mls/hr Q8HR BRIANNA Administration Morphine Sulfate 2 mg 06/07/25 22:29 Morphine Sulf Inj 4 Mg/Ml Vial IVP 06/12/25 22:28 Q2H PRN Pain Scale 5-10 Ondansetron HCl 4 mg 06/07/25 22:29 Ondansetron Inj 2 Mg/Ml Inj 2 Ml IVP 07/07/25 22:28 Q6H PRN NAUSEA OR VOMITING Protocol Plan Ms Jackson is a 55 yof with a h/o of diverticulosis with peridiverticular abscess requiring percutaneous drainage in 02/03 presented to ED for complaint of LLQ pain, erythema, swelling, blister formation with rupture and purulent drainage, was admitted for management of peridiverticular abcess. #Abdominal abscess #Diverticulitis Recurrent disease, was previously treated in January 2025 with percutaneous drain. Initial treatment with outpatient cipro and metronidazole resulted in inital approvement of symptoms, but then recurred. Elevated temp T 100.5, tachycardic at 115, inital WBC at 11, improving today. CT notable for: Abnormal sigmoid colon, marked wall thickening, maximum transverse dimension 6.81 cm, mediolateral dimension of this probable tumor mass at least 11.6 cm This tumor mass is invading and extending through the anterior pelvic wall into the subcutaneous fatty tissue, the mass portion in the subcutaneous fatty tissue measuring at least 4.9 x 5.9 cm General surgery consulted. -General Surgery consulted, appreciate Dr. Ramirez's recommendations. -recommending IR evaluation for percutaneous drainage. -follow up colonoscopy after acute episode and possible elective sigmoid colectomy. -Continue IV cipro and metronidazole (06/08- #Chronic normocytic anemia Records indicate hgb around 10-11. Dropped to 8.5 overnight. MCV is 85. Possibly anemia of chronic disease. Unlikely to be blood loss anemia. -Fe panel and ferritin am draw. #L/ Renal calculi #Chronic kidney disease #Severe left renal scarring Additional findings on CT. Renal calculus is asymptomatic at this point. Adequate renal function at this point, eGFR >60. Patient's plan and care discussed with my attending, Dr Barahona and my senior Dr Barajas. Huy Osborne DO PGY-1 ([facility] Resident) Attending Provider Attestation/Addendum I, Anabela Barahona DO, attest that I was physically present for the cox portions of the service and evaluated the patient with the resident and I reviewed and discussed the case with the resident and agree with the resident's findings and plans of care as documented above Patient seen and evaluated this AM. Patient denies any fevers, chills, nausea, vomiting or abdominal pain. Currently on IV abx. F/u with surgery recommendations regarding abscess. However, currently draining. Continue with wound care. Serosanguinous output noted. Pt denies any purulent drainage.
--- NOTE | 2025-06-08 10:30 | PD.SURCONS ---
HPI Consult details History of present illness: 55F treated for diverticular abscess with percutaneous drainage 01/2025 who presented to ER 06/07 with abdominal pain, fever/chills as well as LLQ drainage. Pt had been having symptoms for approx 3 weeks and was started on cipro/flagyl by her PCP but continued to have symptoms and on the morning of presentation pt noted new bloody/purulent drainage from the LLQ. CT showed sigmoid inflammation with an associated collection and pt was admitted for IV abx as well as surgical evaluation. Overnight pt had Tmax of 100.5, this morning she reports feeling well with no pain, mild nausea but she is feeling thirsty and had a soft BM this morning. She denies any dysuria or pneumaturia. She has not had a colonoscopy PMH: Diverticulitis with abscess 01/2025 PSHx: Tubal ligation Meds: None Allergies: NKDA Family hx: No known CRC Social hx: smoked cigarettes but reports having stopped Review of Systems Review of Systems ROS Unobtainable: All systems reviewed & no additional complaints except as documented Meds Home Medications and Allergies Home Medications ?Medication ?Instructions ?Recorded ?Confirmed ?Type No Known Home Medications 05/17/25 06/08/25 History Allergies Allergy/AdvReac Type Severity Reaction Status Date / Time No Known Allergies Allergy Verified 06/07/25 16:52 Exam Vital Signs Temp Pulse Resp BP Pulse Ox O2 Del Method 96.9 F 91 18 98/66 98 Room Air 06/08/25 08:00 06/08/25 08:00 06/08/25 08:00 06/08/25 08:00 06/08/25 08:00 06/08/25 08:00 Constitutional Constitutional: no acute distress Routine Respiratory Exam Respiratory: Present no resp distress Routine Abdominal Exam Abdominal: Present soft and wound (lower abdomen mild erythema, and at the LLQ there is an ulceration which is draining pus and blood); Absent tenderness or distended Results Results: Laboratory Laboratory results: results reviewed Results: Imaging CT scan - abdomen: report reviewed and image reviewed Assessment & Plan Plan 55F admitted with second episode of diverticulitis with abscess. Overall pt is doing well clinically with no pain, reduced fever and normal WBC, so I explained that she does not require emergent surgery. Instead I recommend IR evaluation on Tuesday for possible repeat drain placement and then after this acute episode has resolved I will follow up for colonoscopy and elective sigmoidectomy. All questions were answered and pt expressed understanding CLD Continue IV abx Encourage ambulation Will follow up
--- NOTE | 2025-06-08 11:06 | PC.SS ---
Addendum entered by JORGE Ramsay 06/08/25 16:12: Rounding note: pending surgery consult, iv antibiotics. Original Note: Patient is a 55 year old female presenting to the hospital for colonic abscess. [employer] met with patient at bedside, role and reason for visit was stated. Patient stated that she lives with her son and his . Patient reported that in case she is unable to make medical decisions on her own she would like her son to make them, Sylvia Jackson PH: [phone]. 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 on [address], PCP is Dr. Velasco, and last appointment was on 05/21/25. Patient stated that once medically clear she would like to return home. PCP: Dr. Velasco Decision maker: Sylvia Jackson PH: [phone] d/c: home
[2025-06-08] MEDS: HEPARIN SOD INJ 5000 UNIT/ML VIAL SC ×2 (13:47→21:08)
[2025-06-08] MEDS: PIPER/TAZO 3.375 GM PREMIX 3.375 GM/50 ML BAG IV (19:06)
[2025-06-09] VITALS (8 sets, daily range): BP systolic 111–116; BP diastolic 70–78; PULSE 84–100; RESP 17–97; TEMP 36.1–36.6; O2SAT 97–99
--- NOTE | 2025-06-09 01:31 | PC.NURSE ---
Dressing changed on patient's left lower abdominal abcess.
[2025-06-09] MEDS: HEPARIN SOD INJ 5000 UNIT/ML VIAL SC ×3 (05:29→22:14)
[2025-06-09] MEDS: PIPER/TAZO 3.375 GM PREMIX 3.375 GM/50 ML BAG IV ×3 (05:30→22:09)
[2025-06-09 06:20] LABS: Basophils # (Auto) 0.0 Thou/mm3 (0.0-0.2); Basophils % (Auto) 1 % (0-2.5); Eosinophils # (Auto) 0.2 Thou/mm3 (0.0-0.5); Eosinophils % (Auto) 3 % (0-10); Hematocrit 28.2 % (36.0-46.0); Hemoglobin 8.6 g/dL (12.0-16.0); Immature Granulocytes Auto 0.03 Thou/mm3 (0.00-0.00); Lymphocytes # (Auto) 1.2 Thou/mm3 (1.0-4.8); Lymphocytes % (Auto) 21 % (10-50); Mean Corpuscular HGB Conc 30.5 g/dl (31.0-37.0); Mean Corpuscular Hemoglobin 25.7 pg (25.0-35.0); Mean Corpuscular Volume 84 fL (80-100); Monocytes # (Auto) 0.6 Thou/mm3 (0.0-0.8); Monocytes % (Auto) 10 % (0-12); Neutrophils # (Auto) 3.9 Thou/mm3 (1.8-7.7); Neutrophils % (Auto) 65 % (37-80); Nucleated Red Blood Cell # 0.00 Thou/mm3 (0.00-0.00); Nucleated Red Blood Cell % 0 /100 WBC (0); Platelet Count 299 Thou/mm3 (140-440); RDW Standard Deviation 47.5 fL (36.4-46.3); Red Blood Count 3.35 Miln/mm3 (4.00-5.20); White Blood Count 5.9 Thou/mm3 (3.6-11.0)
[2025-06-09 06:44] LABS: Anion Gap 10 (7-16); BUN/Creatinine Ratio 8 Ratio (12-20); Blood Urea Nitrogen < 5 mg/dL (9-23); Calcium 9.2 mg/dL (8.3-10.6); Carbon Dioxide 24.3 mMol/L (20.0-31.0); Chloride 106 mMol/L (98-107); Creatinine (Component) 0.6 mg/dL (0.6-1.3); Estimated Creatinine Clearance 120.8 mL/min (>60); Glucose 92 mg/dL (74-106); Magnesium 2.1 mg/dL (1.6-2.6); Osmolality,Calculated 276 (275-295); Potassium 3.4 mMol/L (3.4-5.1); Sodium 140 mMol/L (136-145); eGFR > 60 See Note
[2025-06-09 07:08] LABS: Ferritin 142 ng/mL (7.3-270.7); Iron 20 mcg/dL (50-170); Percent Iron Saturation 4 % (20-55); Total Iron Binding Capacity 498 mcg/dL (250-425); Unsaturated Iron Binding 478 (225-295)
--- NOTE | 2025-06-09 08:32 | ESPR_ITS ---
Documentation for date of: 06/09/25 Subjective Subjective Interval history: Ms Jackson is a 55 yof with a h/o of diverticulosis with peridiverticular abscess requiring percutaneous drainage in 02/03 presented to ED for complaint of LLQ pain, erythema, swelling, blister formation with rupture and purulent drainage, was admitted for management of peridiverticular abcess. Patient reports 3 weeks of LLQ pain, erythema and swelling, she also notes 3 days of fever and chills. Had been previously been treated 3 weeks ago with cipro and metronidazole, symptoms improved intially then worsened. She had an elevated temperature on this admission of 100.[address] scan that demonstrated a very large mass-like structure in the sigmoid colon. Given the constellation of symptoms, this is felt to be most consistent with recurrence of diverticular abcess. 11/08 Patient mark significant drainage through her bandage and a palpable, longitudenal mass in the LLQ just superior to the draining skin break. Dr. Ramirez with general surgery consulted. Cipro and metronidazole were swtiched to [facility], prior blood cx in 01/2025 grew E. coli resistant to cipro. 11/09 Patient examined at bedside, NAOE. Wound continues to drain, apparant serosanguinous fluid now compared to seropurulent fluid yesterday. Dressing was changed, ulcer was examined. Still considering IR percutaneous drainage tomorrow vs allowing the wound to drain on its own. Benefit of IR drain would be the ability to culture the deeper recess fo the abscess pocket. Patient continues to be afebrile, WBC downtrending, minimal pain. Regular diet, npo midnight IR guided drain vs wound culture tomorrow. Coordinate with radiology. Blood cx no growth today. Appreciate Dr. Ramirez and general surgery recommendations. Exam Vital Signs Temp Pulse Resp BP Pulse Ox O2 Del Method 97.0 F 84 17 113/74 97 Room Air 06/09/25 08:00 06/09/25 08:00 06/09/25 08:00 06/09/25 08:00 06/09/25 08:06/09/25 08:00 Narrative Exam General: Patient laying in bed comfortably, no acute distress, HEENT: Mucosa moist. Pupils are equal and reactive to light bilaterally Cardiovascular: Normal S1 and S2. Regular rate and rhythm. No murmur appreciated Respiratory: Clear to auscultation bilaterally without wheezes or crackles. Abdomen: Soft, nontender, not distended, There is a LLQ longitudenal firmness extending medial to lateral. Feels almost cylindrical, somewhat smaller in appearance today. There is an approximately 1 to 1.5 cm ulcer that is draining serosanguinous fluid. Does not readily express fluid when surrounding tissue is pressed. Skin: Skin appears dimpled and contracted from internal fibrosis. Some violacous appearance in the surrounding area. Musculoskeletal: No gross injuries. Able to move all 4 extremities. Non edematous lower extremities. Neuro: Alert and oriented x3. No focal neuro deficits. Psych: Normal affect and mood Objective Labs 06/09/25 05:40 06/09/25 05:40 Labs: Laboratory Results - last 24 hr 06/09/25 05:40 WBC 5.9 RBC 3.35 L Hgb 8.6 L Hct 28.2 L MCV 84 MCH 25.7 MCHC 30.5 L RDW Std Deviation 47.5 H Plt Count 299 D Neut % (Auto) 65 Lymph % (Auto) 21 [place] % (Auto) 10 Eos % (Auto) 3 Baso % (Auto) 1 Neut # (Auto) 3.9 Lymph # (Auto) 1.2 [place] # (Auto) 0.6 Eos # (Auto) 0.2 Baso # (Auto) 0.0 Immature Gran # (Auto) 0.03 H Absolute Nucleated RBC 0.00 Immature Gran % 1 H Nucleated RBC % 0 Sodium 140 Potassium 3.4 Chloride 106 Carbon Dioxide 24.3 Anion Gap 10 BUN < 5 L Creatinine 0.6 Estim Creat Clear Calc 120.8 eGFR > 60 BUN/Creatinine Ratio 8 L Glucose 92 Calculated Osmolality 276 Calcium 9.2 Magnesium 2.1 Iron 20 L TIBC 498 H Iron Saturation 4 L Unsat Iron Binding 478 H Ferritin 142 Quality Measures Quality Measures VTE prophylaxis Assessment & Plan Assessment Current Active Medications: Generic Name Dose Route Start Last Admin Trade Name Freq PRN Reason Stop Dose Admin Acetaminophen 650 mg 06/07/25 22:29 Acetaminophen 325 Mg Tablet PO 07/07/25 22:28 Q6H PRN Fever >101.5 Heparin Sodium (Porcine) 5,000 unit 06/08/25 14:00 06/09/25 05:29 Heparin Sod Inj 5000 Unit/Ml Vial SC 06/22/25 13:59 5,000 unit Q8HR BRIANNA Administration Piperacillin/Tazobactam/Dextrose 3.375 gm in 50 mls @ 12.5 mls/hr 06/09/25 06:00 06/09/25 05:30 Zosyn IV 06/16/25 05:59 12.5 mls/hr Q8HR BRIANNA Administration Protocol Morphine Sulfate 2 mg 06/07/25 22:29 Morphine Sulf Inj 4 Mg/Ml Vial IVP 06/12/25 22:28 Q2H PRN Pain Scale 5-10 Ondansetron HCl 4 mg 06/07/25 22:29 Ondansetron Inj 2 Mg/Ml Inj 2 Ml IVP 07/07/25 22:28 Q6H PRN NAUSEA OR VOMITING Protocol Plan Ms Jackson is a 55 yof with a h/o of diverticulosis with peridiverticular abscess requiring percutaneous drainage in 02/03 presented to ED for complaint of LLQ pain, erythema, swelling, blister formation with rupture and purulent drainage, was admitted for management of peridiverticular abcess. #Abdominal abscess #Diverticulitis Recurrent disease, was previously treated in January 2025 with percutaneous drain. Initial treatment with outpatient cipro and metronidazole resulted in inital approvement of symptoms, but then recurred. Elevated temp T 100.5, tachycardic at 115, inital WBC at 11, improving today. CT notable for: Abnormal sigmoid colon, marked wall thickening, maximum transverse dimension 6.81 cm, mediolateral dimension of this probable tumor mass at least 11.6 cm This tumor mass is invading and extending through the anterior pelvic wall into the subcutaneous fatty tissue, the mass portion in the subcutaneous fatty tissue measuring at least 4.9 x 5.9 cm General surgery consulted. -General Surgery consulted, appreciate Dr. Ramirez's recommendations. -considering IR evaluation for percutaneous drainage versus allowing the wound to drain on its own. Swelling appears to be decreasing. -follow up colonoscopy after acute episode and possible elective sigmoid colectomy. - IV cipro and metronidazole switched to Zosyn, Wound cx in 01/2025 positive for E. coli resistant to cipro. -Regular diet, NPO at midnight for possible percutanous drainage tomorrow. #Chronic normocytic anemia Records indicate hgb around 10-11. Dropped to 8.5 overnight. MCV is 85. Possibly anemia of chronic disease. Unlikely to be blood loss anemia. -Fe 20, TIBC 498, Fe Sat 4, Ferritin 142. -This appears more consistent with anemia of chronic disease, likely secondary to her recurrent diverticulitis and peridiverticular abscess. #L/ Renal calculi #Chronic kidney disease #Severe left renal scarring Additional findings on CT. Renal calculus is asymptomatic at this point. Adequate renal function at this point, eGFR >60. Patient's plan and care discussed with my attending, Dr Jun Osborne DO PGY-1 ([facility] Resident) Attending Provider Attestation/Addendum Anabela Carter DO, attest that I was physically present for the cox portions of the service and evaluated the patient with the resident and I reviewed and discussed the case with the resident and agree with the resident's findings and plans of care as documented above Patient seen and evaluated this AM. Patient reports relief after her abscess began to drain yesterday. Patient had been treated for diverticular abscess in January during which a drain was placed. Patient has been having pain in her abdomen for the past three weeks. She was started on cipro and flagyl outpatient with some mild relief of her pain until the past week. She reports resolution of pain since the drainage began however. CT abd/pelvis shows a deep extension of abscess to superficial skin that is draining serosanguinous fluid, particularly site of previous percutaneous drain. Surgery consulted. Will continue with wound care and have IR drain abscess on Tuesday. Will switch abx to zosyn as culture from previous abscess grew e.coli, resistant to cipro
--- NOTE | 2025-06-09 15:03 | PC.SS ---
Rounding note: on IV antibiotics, surgery on board, IR on board.
[2025-06-10] VITALS: BP 121/74; PULSE 107; RESP 18; TEMP 36.6; O2SAT 96
[2025-06-10 04:00] VITALS: BP 105/68; PULSE 98; RESP 18; TEMP 36.5; O2SAT 97
[2025-06-10] MEDS: PIPER/TAZO 3.375 GM PREMIX 3.375 GM/50 ML BAG IV (05:41)
[2025-06-10 05:47] LABS: Basophils # (Auto) 0.0 Thou/mm3 (0.0-0.2); Basophils % (Auto) 1 % (0-2.5); Eosinophils # (Auto) 0.2 Thou/mm3 (0.0-0.5); Eosinophils % (Auto) 3 % (0-10); Hematocrit 29.1 % (36.0-46.0); Hemoglobin 8.9 g/dL (12.0-16.0); Immature Granulocytes Auto 0.02 Thou/mm3 (0.00-0.00); Lymphocytes # (Auto) 1.6 Thou/mm3 (1.0-4.8); Lymphocytes % (Auto) 24 % (10-50); Mean Corpuscular HGB Conc 30.6 g/dl (31.0-37.0); Mean Corpuscular Hemoglobin 25.6 pg (25.0-35.0); Mean Corpuscular Volume 84 fL (80-100); Monocytes # (Auto) 0.6 Thou/mm3 (0.0-0.8); Monocytes % (Auto) 9 % (0-12); Neutrophils # (Auto) 4.1 Thou/mm3 (1.8-7.7); Neutrophils % (Auto) 63 % (37-80); Nucleated Red Blood Cell # 0.00 Thou/mm3 (0.00-0.00); Nucleated Red Blood Cell % 0 /100 WBC (0); Platelet Count 334 Thou/mm3 (140-440); RDW Standard Deviation 48.1 fL (36.4-46.3); Red Blood Count 3.47 Miln/mm3 (4.00-5.20); White Blood Count 6.6 Thou/mm3 (3.6-11.0)
[2025-06-10 06:05] LABS: Anion Gap 10 (7-16); BUN/Creatinine Ratio 8 Ratio (12-20); Blood Urea Nitrogen < 5 mg/dL (9-23); Calcium 9.3 mg/dL (8.3-10.6); Carbon Dioxide 26.3 mMol/L (20.0-31.0); Chloride 107 mMol/L (98-107); Creatinine (Component) 0.6 mg/dL (0.6-1.3); Estimated Creatinine Clearance 120.8 mL/min (>60); Glucose 112 mg/dL (74-106); Magnesium 2.2 mg/dL (1.6-2.6); Osmolality,Calculated 283 (275-295); Potassium 3.4 mMol/L (3.4-5.1); Sodium 143 mMol/L (136-145); eGFR > 60 See Note
[2025-06-10 07:54] VITALS: BP 109/77; PULSE 89; RESP 18; TEMP 36.1; O2SAT 96
--- NOTE | 2025-06-10 08:52 | PC.NURSE ---
consulted Dr. Acharya regarding order for abscess drain, stated no need for drain at this time, hospitalist made aware, RN Lev also made aware.
[2025-06-10 11:11] VITALS: PULSE 103; RESP 18; RESP 98
[2025-06-10 11:51] VITALS: BP 102/73; PULSE 89; RESP 18; TEMP 36.4; O2SAT 98
--- NOTE | 2025-06-10 15:20 | ESDS_ITS ---
<Statement entered by Anabela Barahona DO - 06/11/25 08:00> I, Anabela Barahona DO, attest that I was physically present for the cox portions of the service and evaluated the patient with the resident and I reviewed and discussed the case with the resident and agree with the resident's findings and plans of care as documented above Planned Discharge Date 06/10/25 DS: Providers Provider Date of admission: 06/07/25 22:29 Primary care physician: Austin Velasco MD Admitting Provider: Emmanuel Jeong MD Attending Provider on Admission: Anabela Barahona DO Consults: 06/07/25 20:35 Consult to General Surgery Stat Comment: Intra-abdominal abscess Consulting Provider: Jeannie Ramirez 06/08/25 00:07 Referral Respiratory Therapy Routine Comment: 06/08/25 03:54 Referral Wound Care Routine Comment: Attending Provider on DC: Anabela Barahona DO Discharging Provider: Anabela Barahona DO DS: Diagnosis Problem List Completed Was Problem List Reviewed/Reconciled?: Yes Hospital Course Hospital Course Hospital course: Reason for hospitalization: intrabdominal abscess 55 year-old female with PMHx of diverticulosis with peridiverticular abscess requiring percutaneous drainage in 02/03 presented to ED for complaint of LLQ pain. Patient reported 3 weeks of LLQ pain, erythema and swelling, she also noted 3 days of fever and chills. PCP had started ciprofloxacin along with metronidazole 2 weeks prior to admission, symptoms significantly improved while on antibiotic but reoccurred a few days after antibiotics were completed. At ED patient's vitals were noted for mild temp of 100.5, tachycardia with HR 111, CBC/CMP were only noted for WBC 11.3, Hgb 10.4. CT A/P showed findings consistent with large mass in sigmoid colon with possible concern for tumor growth. Imaging was also noted for sigmoid colon inflammation and severe left renal scarring and 4 mm renal calculi with no hydro nephrosis. Patient never underwent colonoscopy prior. General surgery was consulted. She did not need to undergo IR drainage or surgery during hospitalization. Patient was switched to IV Zosyn as previous blood cultures from January 2025 showed resistance to ciprofloxacin. Wound was draining serosanguinous fluid. Dressing was changed daily. Surgery agreed to see patient in 1 weeks to assess site and repeat CT abdomen imaging. She is to complete 2 week course of antibiotics. Patient is now in stable condition and ready for discharge. Recommendations were given as below. Discharge Recommendations: Continue taking antibiotic course as prescribed. Follow up with Dr. Ramirez in 1 weeks to assess abscess and repeat CT imaging. Follow up with wound care outpatient. Follow up with PCP in 1-2 weeks. Return to ED if symptoms worsen. Follow up at [facility], [address] [place] [address]. Call [phone] for appointment. Hospital Diagnoses: #Abdominal abscess vs tumor #Diverticulitis #Chronic normocytic anemia #L/ Renal calculi #Chronic kidney disease #Severe left renal scarring The patient's management plan was discussed with my attending physician Dr. Barahona. Maty Brennan MD, PGY-2 Time Spent with Patient Time attestation: Total time spent providing and/or coordinating discharge services: Time spent: Greater than 30 minutes Exam Vital Signs Temp Pulse Resp BP Pulse Ox O2 Del Method 97.6 F 89 18 102/73 98 Room Air 06/10/25 11:51 06/10/25 11:51 06/10/25 11:51 06/10/25 11:51 06/10/25 11:51 06/10/25 11:51 Narrative Exam General: Patient laying in bed comfortably, no acute distress, HEENT: Mucosa moist. Pupils are equal and reactive to light bilaterally Cardiovascular: Normal S1 and S2. Regular rate and rhythm. No murmur appreciated Respiratory: Clear to auscultation bilaterally without wheezes or crackles. Abdomen: Soft, nontender, not distended, There is a LLQ longitudenal firmness extending medial to lateral. Slightly improved than yesterday. There is an approximately 1 to 1.5 cm ulcer that is draining serosanguinous fluid. Does not readily express fluid when surrounding tissue is pressed. Skin: Skin appears dimpled and contracted from internal fibrosis. Some violacous appearance in the surrounding area. Musculoskeletal: No gross injuries. Able to move all 4 extremities. Non edematous lower extremities. Neuro: Alert and oriented x3. No focal neuro deficits. Psych: Normal affect and mood Discharge Plan Plan Patient Disposition: HOME (Self Care) Patient condition on transfer: Stable Prescriptions/Referrals Prescriptions/Med Rec: New amoxicillin-pot clavulanate 875-125 mg tablet 1 tab PO BID 14 Days Qty: 28 0RF Referrals: Jeannie Ramirez MD [Physician, General Surgery] Austin Meza MD [Primary Care Provider, Internal Medicine] Outpatient Orders (i.e. Home Health, Labs, Imaging): Visual Merchandising Director (Routine) Location: None Selected Ordered By: Maty Brennan Patient/Caregiver Discharge Instructions Other Discharge Activity Instructions:: Continue taking antibiotic course as prescribed. Follow up with Dr. Ramirez in 1 weeks to assess abscess and repeat CT imaging. Follow up with wound care outpatient. Follow up with PCP in 1-2 weeks. Return to ED if symptoms worsen. Follow up at [facility], [address] [place] [address]. Call [phone] for appointment. May shower than change wound dressing Wash hands with soap and water, removed old dressing and packing strip. Cleanse with wound cleanser spray and pat dry with gauze. Wash hands with soap and water again. Pack wound with strip packing until strip gauze is inside wound and until resistance felt. Cover with dry gauze and secure with tape. Change once or twice a day and as needed for saturating. If active bleeding occurs, apply tight dressing and return to MD or ER. ?Notify primary doctor or return to Emergency Room if any of the following: ?Fever above 100.6? F. ?Increased pain ?Increase swelling ?Red streaks around your wound ?Drainage becomes foul smelling or changes color ?The wound is larger or deeper ?The wound looks dried out or dark ?Bleeding that does not stop with holding pressure Education Materials: Nutrition for Wound Healing, Diverticulosis Diverticulitis, Wound Care Dc, Discharge Instructions Wound ..., Dressing Change Steps, ED Abscess Antibiotic ... Print Language: Gabonese Stand Alone Forms: Patty Award Info., Patient Portal Info Letter Discharge Order Discharge Orders: Discharge (Routine); Ordered 06/10/25 Ordered By: Maty Brennan Quality Discharge Quality Measures VTE prophylaxis
== END 2025-06-10 12:38 | disposition home or self-care (01) | DRG 392 ==
LOC: SERX 21:03 → SERHOLD 22:47 → S3SX 23:49
PROVIDERS: Nurse Practitioner Family; Admitting Provider Student in an Organized Health Care Education/Training Program; Emergency Provider Emergency Medicine; PCP Student in an Organized Health Care Education/Training Program; Visit Provider Internal Medicine
DX: K57.20 Diverticulitis of large intestine with perforation and abscess without bleeding (principal); L02.211 Cutaneous abscess of abdominal wall; F17.210 Nicotine dependence, cigarettes, uncomplicated; D64.89 Other specified anemias; N20.0 Calculus of kidney; N18.9 Chronic kidney disease, unspecified
CPT/HCPCS: 36415; 74177; 80048; 80053; 81001; 81025; 82728; 83036; 83540; 83550; 83605; 83690; 83735; 84145; 85025; 85610; 85730; 87040; 87077; 87086; 87186; 87811; 96365; 96366; 96372; 99285; A4649; J0744; J1644; J2543; J3490; J7030; J7120; Q9967; A9270; J1836

== ENCOUNTER 2025-06-17 10:57 | Outpatient (AMB) | payer BC, SELFPAY ==
--- NOTE | 2025-06-17 11:20 | GSCOFFNT_ITS ---
Vital Signs - [facility] 06/17/25 11:31 Height 1.57 m Height Method Measured Weight 87.742 kg Weight Measurement Method Standing Scale BMI 35.4 BP 114/76 Blood Pressure Source Automatic Cuff Blood Pressure Location Left Upper Arm Position Sitting Respiration 16 Pulse 117 H Pulse Source Monitor Temp 97.4 F Temp Source Temporal Artery Scan Pulse Oximetry (%) 96 Oxygen Delivery Method Room Air Med/Allergies Allergies & Medications Allergies No Known Allergies Allergy (Verified 06/17/25 11:32) Medication Reconciliation amoxicillin 875 mg-potassium clavulanate 125 mg tablet 1 tab PO BID 14 days #28 tabs 06/10/25 [Rx Confirmed 06/17/25] MA Intake Visit Data Collection New Patient or Established: Established Patient (seen at [facility] within 3 years) Seen by Clinical Staff ONLY (RN/MA): No Pain Present Currently: No Pain Scale Used: Soni/Numerical Animal Nutrition Consultant Required: No PCP or OBGYN visit in last 3 months: Yes Hx Now: No Do You Feel Safe at Home: Yes Authorities Contacted: N/A Smoking Status Smoking Status: Never smoker Immunization / Flu Flu Vaccine in the Last 12 Months: Yes Flu Vaccine Exclusion Criteria: Already Received Past Medical History Past Medical History CARDIAC: Negative Cardiac Disorders or Congestive Heart Failure RESPIRATORY: Negative Chronic Obstructive Pulmonary Disease (COPD) or Asthma GENITOURINARY: Negative Renal Disease ENDOCRINE: Negative Diabetes Mellitus Type 1 or Diabetes Mellitus Type 2 HEMATOLOGIC: Negative Sickle Cell Disease Family History FAMILY HISTORY: Positive Family Cardiac Disorders; Negative Family Cancer Social History SMOKING STATUS: Smoking status: Never smoker ALCOHOL: Alcohol Intake: Never ALCOHOL FREQUENCY: Alcohol Intake Frequency: holidays/special occasions only HOUSING: Housing: House LIVES WITH: Lives With: Family HPI HPI Narrative HISTORY OF PRESENT ILLNESS I, Jeannie Chelseagloria, have obtained verbal consent from the patient, to be recorded during this encounter which may include, but not limited to, medical history, examination, treatment plans, and relevant health information.? Patient was informed that recording will be read and reviewed by myself before inclusion in the medical chart. The patient is here for a follow-up of diverticulitis. She reports a general sense of well-being, with some tenderness and ongoing drainage that necessitates multiple dressing changes daily. She continues to use the bathroom without any blood in her stool. Over the past few months, she has experienced intermittent pain, weakness, and fatigue. Certain foods seem to induce nausea. She reports no respiratory issues such as difficulty breathing or coughing, and no changes in her urinary habits. She has not yet undergone a colo noscopy.. She has had no changes in uterine bleeding, having gone through menopause at age 46. She is currently on antibiotics. ROS Review of Systems Systems Reviewed: All systems reviewed, normal except as documented Objective/Exam General General Appearance: alert, cooperative and well groomed Resp Respiratory exam: Absent respiratory distress Abdominal Abdominal exam: Present soft, tenderness (mild tenderness LLQ) and other (LLQ wound draining pus, mild surrounding erythema improved from prior exam); Absent distention Results CT results reviewed Assessment & Plan Diagnosis / Problem List (1) Intra-abdominal abscess: Status: Acute Assessment & Plan: Clinically pt is doing well with minimal pain, eating and having regular BMs. I explained that I did speak to our radiologist and he confirmed that the sigmoid colon lesion is amenable to image-guided biopsy, so I will order this stat as well as a CXR to evaluate for metastatic disease if the mass is indeed cancerous. I informed pt that she will need a colonoscopy at some point but given the risk of perforation in the setting of inflammation it will likely be sometime in the next few months. Pt had not yet heard from our [facility] so I let her know I would send another referral today and will follow up with her next week provided she is able to get the biopsy and CXR done by then Orders: Orders CT biopsy abdomen percutaneous 1 Week XR chest 2V 1 Week Referrals Wound Healing K65.1 - Peritoneal abscess Office Procedures GNS Level of Care Nursing/Assessment Patient Status: Established Patient Nursing Assessment/Reassesment: Medication Reconciliation, Update PMH in EMR and Vital Signs Coordination of Care: Complex Care and Chronic Disease 1-5, Education Complex Pt/Fam, Consent,records obtained, informed consent, Results/Orders obtained and Staff clarify orders Established Patient Charge Established Patient Point Assignment: 95 Established Patient Point Charge: EP Level 3 (80-115) Patient Portal Questionaires Social History Living Situation History Housing: House Tobacco History Smoking Status: Never smoker Alcohol History Alcohol Intake: Never Alcohol Intake Frequency: holidays/special occasions only Domestic Abuse History Do You Feel Safe at Home: Yes Review of Systems Report any current symptoms Only answer those that you have currently: Past Medical History Past Medical History Have you ever been diagnosed with any of the following: Cardiology Problems Congestive Heart Failure: No Respiratory Problems Chronic Obstructive Pulmonary Disease (COPD): No Asthma: No Genital/Urinary Problems Renal Disease: No Endocrine Problems Diabetes Mellitus Type 1: No Diabetes Mellitus Type 2: No Blood Problems Sickle Cell Disease: No
[2025-06-17 11:31] VITALS: BP 114/76; PULSE 117; RESP 16; TEMP 36.3; O2SAT 96; BMI 35.4
== END 2025-06-17 12:17 | disposition home or self-care (01) ==
LOC: HODSRG 10:57
PROVIDERS: PCP Student in an Organized Health Care Education/Training Program; Referring Provider Student in an Organized Health Care Education/Training Program; Supervising Provider Surgery; Visit Provider Surgery
DX: K65.1 Peritoneal abscess (principal)
CPT/HCPCS: 99213; G0463

== ENCOUNTER → 2025-06-17 | Outpatient (CLI) | payer BC, SELFPAY ==
--- NOTE | 2025-06-17 12:35 | XR_ITS ---
Examination: PA lateral chest 2 views TECHNIQUE: Upright PA lateral chest 2 views Date and time: June 17, 2025, 1257 hours INDICATIONS: Diagnosis malignant neoplasm colon, staging. FINDINGS: Normal heart size. Lungs are clear. The osseous structures are intact IMPRESSION: No active disease.
== END | disposition home or self-care (01) ==
PROVIDERS: PCP Surgery
DX: R10.9 Unspecified abdominal pain (principal)
CPT/HCPCS: 71046

== ENCOUNTER → 2025-06-21 | Outpatient (CLI) | payer BC, SELFPAY | END | disposition home or self-care (01) | PROVIDERS: PCP Student in an Organized Health Care Education/Training Program; Referring Provider Student in an Organized Health Care Education/Training Program; Visit Provider Surgery | DX: L02.211 Cutaneous abscess of abdominal wall (principal); S31.104A Unspecified open wound of abdominal wall, left lower quadrant without penetration into peritoneal cavity, initial encounter; X58.XXXA Exposure to other specified factors, initial encounter; Z87.891 Personal history of nicotine dependence | CPT/HCPCS: 17250; 99203; A9270; G0463 ==

== ENCOUNTER 2025-06-24 11:24 | Outpatient (AMB) | payer BC, SELFPAY ==
[2025-06-24 11:32] VITALS: BP 97/58; PULSE 116; RESP 18; TEMP 36.6; O2SAT 98; BMI 35.4
--- NOTE | 2025-06-24 11:32 | GSCOFFNT_ITS ---
Vital Signs - [facility] 06/24/25 11:32 Height 1.57 m Height Method Measured Weight 87.203 kg Weight Measurement Method Standing Scale BMI 35.4 BP 97/58 L Blood Pressure Source Automatic Cuff Blood Pressure Location Left Upper Arm Position Sitting Respiration 18 Pulse 116 H Pulse Source Monitor Temp 97.8 F Temp Source Temporal Artery Scan Pulse Oximetry (%) 98 Oxygen Delivery Method Room Air Med/Allergies Allergies & Medications Allergies No Known Allergies Allergy (Verified 06/24/25 11:33) Medication Reconciliation No Known Home Medications 06/24/25 [History Confirmed 06/24/25] MA Intake Visit Data Collection New Patient or Established: Established Patient (seen at [facility] within 3 years) Seen by Clinical Staff ONLY (RN/MA): No Reason for Visit:: 1 WEEK F/U Pain Present Currently: No Pain Scale Used: Carbone-Bermudez/Numerical Paving Inspector Required: No PCP or OBGYN visit in last 3 months: Yes Hx Now: No Do You Feel Safe at Home: Yes Authorities Contacted: N/A Smoking Status Smoking Status: Never smoker Immunization / Flu Flu Vaccine in the Last 12 Months: Yes Flu Vaccine Exclusion Criteria: Already Received Past Medical History Past Medical History CARDIAC: Negative Cardiac Disorders or Congestive Heart Failure RESPIRATORY: Negative Chronic Obstructive Pulmonary Disease (COPD) or Asthma GENITOURINARY: Negative Renal Disease ENDOCRINE: Negative Diabetes Mellitus Type 1 or Diabetes Mellitus Type 2 HEMATOLOGIC: Negative Sickle Cell Disease Family History FAMILY HISTORY: Positive Family Cardiac Disorders; Negative Family Cancer Social History SMOKING STATUS: Smoking status: Never smoker ALCOHOL: Alcohol Intake: Never ALCOHOL FREQUENCY: Alcohol Intake Frequency: holidays/special occasions only HOUSING: Housing: House LIVES WITH: Lives With: Family HPI HPI Narrative 55F here for follow up of abdominal drainage. Pt has not yet undergone biopsy of the suspected abdominal mass but noticed a new area of drainage superior to the previous area. She still is feeling well with no pain, no nausea, no fever, she is eating and having regular bowel movements without difficulty ROS Review of Systems Systems Reviewed: All systems reviewed, normal except as documented Objective/Exam General General Appearance: alert, cooperative and well groomed Resp Respiratory exam: Absent respiratory distress Abdominal Abdominal exam: Present soft and mass (area of firmness at the LLQ and there are two openings draining pus. The more superior opening has some surrounding erythema); Absent distention or tenderness Assessment & Plan Diagnosis / Problem List (1) Abdominal mass: Status: Acute Assessment & Plan: 55F with history of diverticulitis s/p catheter drainage January 2025, with drainage from her abdominal wall which has worsened since last visit. I spoke to my colleague regarding next best step and ultimately decided that endoscopic evaluation should be pursued sooner than later in order to obtain a tissue diagnosis and, if possible to evaluate the entire colon for any other lesions. I discussed prep as well as the risks of colonoscopy including bleeding and perforation requiring emergency surgery. I informed pt that if she does have sigmoid cancer she will require resection which would most likely require a temporary colostomy, plus chemotherapy for preventing recurrence. She is understandably anxious about these possibilties and generally hesitant to receive chemotherapy at all but at least willing to pursue colonoscopy Plan: Diagnostic colonoscopy [facility] Office Procedures GNS Level of Care Nursing/Assessment Patient Status: Established Patient Nursing Assessment/Reassesment: Medication Reconciliation, Update PMH in EMR and Vital Signs Coordination of Care: Complex Care and Chronic Disease 1-5, Education Complex Pt/Fam, Consent,records obtained, informed consent, Results/Orders obtained and Staff clarify orders Established Patient Charge Established Patient Point Assignment: 95 Established Patient Point Charge: EP Level 3 (80-115) Patient Portal Questionaires Social History Living Situation History Housing: House Tobacco History Smoking Status: Never smoker Alcohol History Alcohol Intake: Never Alcohol Intake Frequency: holidays/special occasions only Domestic Abuse History Do You Feel Safe at Home: Yes Review of Systems Report any current symptoms Only answer those that you have currently: Past Medical History Past Medical History Have you ever been diagnosed with any of the following: Cardiology Problems Congestive Heart Failure: No Respiratory Problems Chronic Obstructive Pulmonary Disease (COPD): No Asthma: No Genital/Urinary Problems Renal Disease: No Endocrine Problems Diabetes Mellitus Type 1: No Diabetes Mellitus Type 2: No Blood Problems Sickle Cell Disease: No
== END 2025-06-24 11:52 | disposition home or self-care (01) ==
LOC: HODSRG 11:24
PROVIDERS: PCP Student in an Organized Health Care Education/Training Program; Referring Provider Student in an Organized Health Care Education/Training Program; Supervising Provider Surgery; Visit Provider Surgery
DX: R19.04 Left lower quadrant abdominal swelling, mass and lump (principal)
CPT/HCPCS: 99213; G0463

== ENCOUNTER 2025-06-25 17:05 | Inpatient (IN) | payer BC, SELFPAY ==
[2025-06-25 17:43] VITALS: BP 107/73; PULSE 120; RESP 18; TEMP 37.3; O2SAT 97; BMI 34.7
--- NOTE | 2025-06-25 17:46 | XR_ITS ---
Examination: CT abdomen with intravenous contrast CT pelvis with intravenous contrast 2-D coronal reconstructions 2-D sagittal reconstructions Date and time of exam: June 25, 2025, 2155 hours INDICATIONS: History large mass in the sigmoid colon extending to the anterior pelvic wall into the subcutaneous fatty tissue on CT study June 07, 2025. CTDI: vol (mGy) 11.7 DLP: (mGycm) 665 Technique: Multiple axial sections of the abdomen and pelvis have been obtained. 64 slice high-resolution scanner used. 3 mm axial sections have been obtained, post intravenous injection 60 cc [id number] 2-D sagittal, coronal reconstructions obtained. Low dose protocols were performed. One or more of the following dose reduction techniques were used; automated exposure control, adjustment of the mA and/or KV according to patient size, use of iterative reconstruction technique. Findings: Fatty infiltration throughout the liver with hepatosplenomegaly Gallstones No pancreatic or adrenal mass Severe left renal scarring 4 mm left renal calculus, no hydronephrosis or ureteral calculi Again noted acute diverticulitis in the sigmoid colon with large mass extending from the sigmoid colon through the abdominal wall in the left pelvis with more fluid density at the left pelvic anterior abdominal wall, extending into the subcutaneous fatty tissue Subtle endometrial uterine mass, 36 mm Bladder intact IMPRESSION: Acute diverticulitis sigmoid colon Enlarging abscess tumor mass extending from the sigmoid colon through the pelvic wall into the subcutaneous fatty tissue with more prominent fluid densities and air densities
--- NOTE | 2025-06-25 17:47 | PD.EDRME ---
Rapid Medical Screening Exam E Arrival date/time: 06/25/25 17:05 55-year-old female with no known medical history presents to the emergency room with a chief complaint of an abscess to her left lower abdominal area. Patient states that is draining and has a foul odor. I have greeted and performed a focused initial assessment of this patient. A comprehensive ED assessment and evaluation of the patient, analysis of all test results, and completion of the medical decision making process will be conducted by additional ED providers. Chief Complaint: Skin/Abscess/Foreign Body Vital signs: Vital Signs Temperature 99.1 F 06/25/25 17:43 Pulse Rate 120 H 06/25/25 17:43 Respiratory Rate 18 06/25/25 17:43 Blood Pressure 107/73 06/25/25 17:43 Pulse Oximetry (%) 97 06/25/25 17:43 Oxygen Delivery Method Room Air 06/25/25 17:43 Vital signs reviewed by provider: Yes
[2025-06-25 18:35] LABS: Collection Type, Urine Clean Catch
[2025-06-25 18:46] LABS: Amorphous Crystals,Urine Present (Absent); Bilirubin,Urine Negative (Negative); Blood,Urine Trace (Negative); Clarity,Urine Turbid (Clear/Hazy); Color,Urine Yellow (Lt Yel-Yel); Glucose, Urine Negative (Negative); Ketones,Urine Negative (Negative); Leukocyte Esterase,Urine Positive (Negative); Nitrite,Urine Negative (Negative); PH,Urine 6.0 (5.0-7.0); Protein,Urine 1+ (Neg - Trace); RBC,Urine 6 /hpf (0-3); Specific Gravity,Urine 1.028 (1.001-1.035); Squamous Epithelial Cell,Urine 32 /hpf (0-5); Urobilinogen,Urine 12 mg/dL (0.0-1.0); WBC,Urine 5 /hpf (0-5)
[2025-06-25 18:48] LABS: HCG Qualitative,Urine Negative
[2025-06-25 19:50] LABS: Lactate (Lactic Acid) 1.8 mMol/L (0.4-2.0)
[2025-06-25 19:56] LABS: Basophils # (Auto) 0.1 Thou/mm3 (0.0-0.2); Basophils % (Auto) 0 % (0-2.5); Eosinophils # (Auto) 0.0 Thou/mm3 (0.0-0.5); Eosinophils % (Auto) 0 % (0-10); Hematocrit 29.6 % (36.0-46.0); Hemoglobin 9.0 g/dL (12.0-16.0); Immature Granulocytes Auto 0.27 Thou/mm3 (0.00-0.00); Lymphocytes # (Auto) 1.6 Thou/mm3 (1.0-4.8); Lymphocytes % (Auto) 8 % (10-50); Mean Corpuscular HGB Conc 30.4 g/dl (31.0-37.0); Mean Corpuscular Hemoglobin 24.4 pg (25.0-35.0); Mean Corpuscular Volume 80 fL (80-100); Monocytes # (Auto) 1.1 Thou/mm3 (0.0-0.8); Monocytes % (Auto) 5 % (0-12); Neutrophils # (Auto) 18.5 Thou/mm3 (1.8-7.7); Neutrophils % (Auto) 86 % (37-80); Nucleated Red Blood Cell # 0.00 Thou/mm3 (0.00-0.00); Nucleated Red Blood Cell % 0 /100 WBC (0); Platelet Count 495 Thou/mm3 (140-440); RDW Standard Deviation 46.9 fL (36.4-46.3); Red Blood Count 3.69 Miln/mm3 (4.00-5.20); White Blood Count 21.5 Thou/mm3 (3.6-11.0)
[2025-06-25 20:23] LABS: Alanine Aminotransferase 9 U/L (10-49); Albumin, Serum 3.9 gm/dL (3.5-5.0); Albumin/Globulin Ratio 1.1 (1.2-2.2); Alkaline Phosphatase 99 U/L (46-116); Anion Gap 12 (7-16); Aspartate Amino Transferase 24 U/L (0-34); BUN/Creatinine Ratio 12 Ratio (12-20); Bilirubin,Total 0.4 mg/dL (0.3-1.2); Blood Urea Nitrogen 7 mg/dL (9-23); Calcium 8.8 mg/dL (8.3-10.6); Calcium (Corrected) 8.9 mg/dL (8.5-10.1); Carbon Dioxide 25.6 mMol/L (20.0-31.0); Chloride 97 mMol/L (98-107); Creatinine (Component) 0.6 mg/dL (0.6-1.3); Estimated Creatinine Clearance 109.2 mL/min (>60); Globulin 3.5 gm/dL (2.3-3.5); Glucose 141 mg/dL (74-106); Lipase 19 U/L (12-53); Osmolality,Calculated 270 (275-295); Potassium 3.4 mMol/L (3.4-5.1); Procalcitonin 0.18 ng/ml (0.0-0.49); Sodium 135 mMol/L (136-145); Total Protein 7.4 gm/dL (5.7-8.2); eGFR > 60 See Note
[2025-06-25 21:38] VITALS: BP 114/74; PULSE 99; RESP 18; TEMP 36.7; O2SAT 96
--- NOTE | 2025-06-25 22:03 | EDNOTE_ITS ---
ED Skin Abcess FB-RME/HPI General Chief complaint: Skin/Abscess/Foreign Body Stated complaint: ABSCESS LLQ ABD Time Seen by Provider: 06/25/25 21:51 Arrival date/time: 06/25/25 17:05 RME / HPI RME / HPI narrative: 06/25/25 17:05 55-year-old female with no known medical history presents to the emergency room with a chief complaint of an abscess to her left lower abdominal area. Patient states that is draining and has a foul odor. I have greeted and performed a focused initial assessment of this patient. A comprehensive ED assessment and evaluation of the patient, analysis of all test results, and completion of the medical decision making process will be conducted by additional ED providers. DR. AGUILERA MAIN ED EVALUATION: 55 y/o female with Hx of Diverticulitis and Intra-Abdominal Abscess presents to ED c/o LLQ abdominal drainage and foul order from 2 stoma x 1 day. Patient was seen by Dr. Ramirez yesterday, 06/24/2025 and is scheduled for a colonoscopy next week. Patient last had Diverticulitis in January 2025. Patient has been here for 5 hours prior to my initial evaluation. Denies any allergies to medication. Denies history of DM. Related Data Previous Rx's ?Medication ?Instructions ?Recorded peg 3350-electrolytes 236 240 ml PO Q10M #4,000 mL gram-22.74 gram-6.74 gram-5.86 gram solution Allergies Allergy/AdvReac Type Severity Reaction Status Date / Time No Known Allergies Allergy Verified 06/25/25 17:08 Review of Systems Review of Systems Systems Reviewed: All systems reviewed, normal except as documented Past Medical History Past Medical History GASTROINTESTINAL: Positive Diverticulitis Family History FAMILY HISTORY: Positive Family Cardiac Disorders Social History SMOKING STATUS: Former smoker ED Exam Narrative Physical exam: Generally patient is alert in no obvious distress, heart regular rate and rhythm, lungs clear to auscultation equal bilaterally, abdomen soft left lower quadrant abdominal tenderness with 2 separate draining wounds with 1 to the left lower quadrant and the other 1 superior to that wound by about 8 cm to the abdominal wall draining foul-smelling exudate. Minimal overlying erythema., Neurologic exam shows [place] Coma Scale 15 Course Quality Measures none Orders Category Date Time Status CT Screening NOW Care 06/25/25 17:[address] abdomen pelvis w con Stat Exams 06/25/25 17:46 Completed Blood Culture (Lab) Stat Lab 06/25/25 19:24 Received CBC Stat Lab 06/25/25 19:24 Completed CMP [Comprehensive Metabolic Panel] Stat Lab 06/25/25 19:24 Completed HCG Qualitative,Urine Stat Lab 06/25/25 18:25 Completed Lactate (Lactic Acid) Stat Lab 06/25/25 19:24 Completed Lipase Stat Lab 06/25/25 19:24 Completed Procalcitonin Stat Lab 06/25/25 19:24 Completed UA [Urinalysis] Stat Lab 06/25/25 18:25 Completed Urine Culture Stat Lab 06/25/25 18:25 Received Wound Culture and Gram Stain Stat Lab 06/25/25 22:12 Ordered Vancomycin Pharmacy to Dose Med 06/26/25 09:00 Ordered 1 each IV QDAY cefTRIAXone/D5w 1gm IV premix [Rocephin/D5w 1gm IV Med 06/25/25 22:03 Discontinued premix] 1 gm in 50 ml IV X1 metroNIDAZOLE/NS 500 MG IVPB [Flagyl 500 mg IV] Med 06/25/25 22:03 Discontinued 500 mg in 100 ml IV X1 Vital Signs Vital signs: Vital Signs Temperature 99.1 F 06/25/25 17:43 Pulse Rate 120 H 06/25/25 17:43 Respiratory Rate 18 06/25/25 17:43 Blood Pressure 107/73 06/25/25 17:43 Pulse Oximetry (%) 97 06/25/25 17:43 Oxygen Delivery Method Room Air 06/25/25 17:43 Skin / Abscess / Foreign Body MDM Narrative MDM Narrative:: Scribe Attestation: I, Gauri Carlton am scribing for and in the presence of Dr. Aguilera. Provider Notation: Although this document has been carefully reviewed, there may still be some phonetic and other typographical errors. These errors are purely grammatical due to imperfections in the software program and should not be construed in any way to compromise the substance of the patient's medical care during this visit. I interpreted all labs. Heart rate was in the 90s. Patient was afebrile. White count was 21,000. Septic workup was initiated. Patient was not hypotensive. Lactic acid level was 1.8. Procalcitonin level was not elevated. CT scan done of the abdomen and pelvis with IV contrast showed acute diverticulitis of the sigmoid colon. There was also an abscess thick mass extending from the sigmoid colon through the pelvic wall into the subcutaneous fatty tissue with fluid and air densities. Patient was given Rocephin 1 g IV, vancomycin pharmacy to dose IV and Flagyl 500 mg IV. Multiple calls were placed to the patient's general surgeon who saw the patient yesterday, Dr. Ramirez. I have yet to receive return phone call. I discussed this case with general surgeon on-call, Dr. Ford who states to have the patient admitted to the hospitalist and for them to call Dr. Ramirez in the morning. At this time the patient appears to have acute sigmoid diverticulitis with abscess extending through the pelvic wall. Case was discussed with the hospitalist who will admit the patient to hospital for further treatment and evaluation. Patient data External records reviewed:: [facility] previous records (Reviewed prior ED records from 06/07/25. Patient was seen for Intra-abdominal abscess.) Clinical information provided by:: patient Social determinants that could affect healthcare access:: none Patient has the following chronic illnesses:: None reported How is presenting disease/condition affected by chronic disease/condition?: no chronic disease Evaluation data The following diagnostics were reviewed and interpreted by me:: lab results and radiology exam(s) Lab and/or radiology exams considered but not ordered:: None Interpretation Summary: RADIOLOGY Abdomen/Pelvis CT: Findings: Fatty infiltration throughout the liver with hepatosplenomegaly Gallstones No pancreatic or adrenal mass Severe left renal scarring 4 mm left renal calculus, no hydronephrosis or ureteral calculi Again noted acute diverticulitis in the sigmoid colon with large mass extending from the sigmoid colon through the abdominal wall in the left pelvis with more fluid density at the left pelvic anterior abdominal wall, extending into the subcutaneous fatty tissue Subtle endometrial uterine mass, 36 mm Bladder intact IMPRESSION: Acute diverticulitis sigmoid colon Enlarging abscess tumor mass extending from the sigmoid colon through the pelvic wall into the subcutaneous fatty tissue with more prominent fluid densities and air densities Medications / Prescriptions Medications or Prescriptions considered but not ordered:: None Medication administrations:: Medication Administration History Pharmacy Consult (Vancomycin Pharmacy To Dose 1 Each Each) 1 each IV QDAY BRIANNA Stop: 07/26/25 08:59 Discontinued Medications Metronidazole (Flagyl 500 Mg Iv) 500 mg in 100 mls @ 100 mls/hr IV X1 ONE Stop: 06/25/25 23:02 Ceftriaxone Sodium/Dextrose (Rocephin/D5w 1gm Iv Premix) 1 gm in 50 mls @ 100 mls/hr IV X1 ONE Stop: 06/25/25 22:32 See above if any Consultations Consultation(s) initiated? (list below): Yes Diagnosis Skin/Abscess Differential Diagnosis: abscess of skin or subcutaneous tissue, cellulitis and other (Intra-abdominal abscess) Most likely diagnosis given after review of the tests above:: none Admission Indicated Admission indicated?: indicated Admission Request Was there a request for admission?: Yes Admission Attestation Admission request attestation: Discussed case with [] from Hospitalist service regarding admission. Discussed patients ED course, exam findings, labs, and radiology results. The Hospitalist [agrees,declines] to accept the patient for admission. Disposition Plan Disposition Plan: Admit Critical Care Time Critical Care Time Critical Care Time: Yes Total Critical Care Time (min.): 35 Attestation: Excluding other billable procedures Discharge Plan Plan Patient Disposition: Admit Acute Care w/in Hospital Prescriptions/Referrals Prescriptions/Med Rec: No Action peg 3350-electrolytes 236-22.74-6.74 -5.86 gram recon soln 240 ml PO Q10M Qty: 4000 0RF Rx Instructions: until fecal effluent is clear Referrals: No Primary/Family,Physician [Primary Care Provider] - In 1 week Problem List Clinical Impression: Intra-abdominal abscess, Diverticulitis Patient/Caregiver Discharge Instructions Print Language: Afghan Stand Alone Forms: Patty Award Info., Patient Portal Info Letter
[2025-06-26] VITALS (8 sets, daily range): BP systolic 96–112; BP diastolic 60–74; PULSE 93–106; RESP 16–22; TEMP 36.3–36.9; O2SAT 95–98; BMI 34.7; BMI 34.9
--- NOTE | 2025-06-26 00:06 | PD.RESHP ---
Documentation for date of: 06/26/25 HPI History of Present Illness History of present illness: Ms. Jackson is a 55 y/o female with PMH diverticulosis with peridiverticular abscess requiring percutaneous drainage in 02/03 who presented to ED 06/25 worsening serosanguinous drainage of LLQ and left suprapubic abscesses. Associated with surrounding erythema, edema. Denies TTP or LLQ pain, fevers, chills, nausea, vomiting, night sweats, constipation, hematemesis, melena, hematochezia. Notes several days of diarrhea. Patient previously admitted May 2025 for these abscesses. Wound culture grew E coli, managed with IV Zosyn followed by amox-clav PO upon discharge. No I&D performed.Patient followed up with Dr. Ballesteros outpatient, planned for colonoscopy and CXR to evaluate for metastatic disease if the mass is cancerous. ED course: Afebrile, tachycardic to 120s, otherwise VSS. Labs significant for WBC 21.5, hgb 9, HCT 29.6, plt 495, Na 135, Cl 97, PT 12.3. Lactic acid 1.[address] a/p showed acute diverticulitis sigmoid colon, enlarging abscess tumor mass extending from sigmoid colon through the pelvic wall into the subcutaneous fatty tissue with more prominent fluid densities and air densities. Severe left renal scarring, 4 mm left renal calculus, no hydronephrosis or ureteral calculi. Substle endometrial uterine mass 36 mm. PMHx: diverticulosis with peridiverticular abscess Allergies: NKDA Home meds: none SgHx: Tubal ligation SHx: Previously smoked 1/2 PPD x3 years, recently quit. Denies EtOH, recreational drug use. FHx: none reported Review of Systems Review of Systems Narrative Review of Systems: 14 point ROS negative other than HPI Exam Vital Signs Temp Pulse Resp BP Pulse Ox O2 Del Method 98.1 F 99 18 114/74 96 Room Air 06/25/25 21:38 06/25/25 21:38 06/25/25 21:38 06/25/25 21:38 06/25/25 21:38 06/25/25 21:38 Narrative Exam General: No acute distress, well nourished Eye: PERRL, EOMI, normal conjunctiva, no scleral icterus HENT: Normocephalic, atraumatic, normal hearing, moist oral mucosa Neck: Supple, non-tender, no JVD, no lymphadenopathy Lungs: Clear to auscultation bilaterally, non-labored respirations, symmetric chest rise, no use of accessory muscles Heart: Normal S1 and S2, no S3 or S4 appreciated. Normal rate and regular rhythm, no murmurs, rubs gallops, or edema. Peripheral pulses intact bilaterally, capillary refill brisk distally Abdomen: Soft, non-tender, non-distended, normal bowel sounds. No guarding or rebound tenderness. Musculoskeletal: Normal range of motion and strength, no tenderness or swelling Skin: Two open lesions (LLQ and left suprapubic) draining serosanguinous fluid, foul odor, surrounding warmth, erythema, edema, not TTP Neurologic: Alert, awake and oriented x3. CN II-XII grossly intact. No focal neuro deficits. No signs of meningeal irritation noted. Psychiatric: Cooperative, appropriate mood and affect Results: Labs 06/25/25 19:24 06/25/25 19:24 Labs: Short CBC 06/25/25 Range/Units 19:24 WBC 21.5 H (3.6-11.0) Thou/mm3 Hgb 9.0 L (12.0-16.0) g/dL Hct 29.6 L (36.0-46.0) % Plt Count 495 H D (140-440) Thou/mm3 BMP 06/25/25 19:24 Sodium 135 L Potassium 3.4 Chloride 97 L Carbon Dioxide 25.6 BUN 7 L Creatinine 0.6 Glucose 141 H Calcium 8.8 Liver Function 06/25/25 Range/Units 19:24 Total Bilirubin 0.4 (0.3-1.2) mg/dL AST 24 (0-34) U/L ALT 9 L (10-49) U/L Alkaline Phosphatase 99 (46-116) U/L Albumin 3.9 (3.5-5.0) gm/dL Urine 06/25/25 Range/Units 18:25 Urine Color Yellow (Lt Yel-Yel) Urine Clarity Turbid A (Clear/Hazy) Urine pH 6.0 (5.0-7.0) Ur Specific [place] 1.028 (1.001-1.035) Urine Protein 1+ A (Neg - Trace) Urine Glucose (UA) Negative (Negative) Quality Measures Quality Measures none Medications Home Medications and Allergies Allergies Allergy/AdvReac Type Severity Reaction Status Date / Time No Known Allergies Allergy Verified 06/25/25 17:08 Visit Medications Acetaminophen (Acetaminophen 325 Mg Tablet) 650 mg PO Q6H PRN PRN Reason: Fever >100.3 Stop: 07/26/25 00:00 Acetaminophen (Acetaminophen 325 Mg Tablet) 650 mg PO Q6H PRN PRN Reason: PAIN SCALE 1-3 (mild Stop: 07/26/25 00:00 Heparin Sodium (Porcine) (Heparin Sod Inj 5000 Unit/Ml Vial) 5,000 unit SC Q8HR BRIANNA Stop: 07/10/25 05:59 Vancomycin/Sodium Chloride (Vancomycin/Ns 1 Gm Ivpb) 200 mls @ 120 mls/hr IV X1 ONE Stop: 06/26/25 01:09 Ondansetron HCl (Ondansetron Inj 2 Mg/Ml Inj 2 Ml) 4 mg IVP Q6H PRN; Protocol PRN Reason: NAUSEA OR VOMITING Stop: 07/26/25 00:00 Pharmacy Consult (Vancomycin Pharmacy To Dose 1 Each Each) 1 each IV QDAY [facility] Stop: 07/26/25 08:59 Discontinued Medications Metronidazole (Flagyl 500 Mg Iv) 500 mg in 100 mls @ 100 mls/hr IV X1 ONE Stop: 06/25/25 23:02 Ceftriaxone Sodium/Dextrose (Rocephin/D5w 1gm Iv Premix) 1 gm in 50 mls @ 100 mls/hr IV X1 ONE Stop: 06/25/25 22:32 Vancomycin/Sodium Chloride (Vancomycin/Ns 1 Gm Ivpb) 200 mls @ 120 mls/hr IV Q100M BRIANNA Stop: 06/26/25 02:49 Assessment & Plan Plan Ms. Jackson is a 55 y/o female with PMH diverticulosis with peridiverticular abscess requiring percutaneous drainage in 02/03 who presented to ED 06/25 worsening serosanguinous drainage of LLQ and left suprapubic abscesses. Admitted for peridiverticular abscesses. #Peridiverticular abscesses Two abscesses draining foul-smelling serosanguinous fluid, surrounding warmth, erythema, edema, not TTP Previous wound culture grew E coli, managed with IV Zosyn Afebrile, leukocytosis WBC 21.5. Lactic acid WNL CT a/p showed acute diverticulitis sigmoid colon, enlarging abscess tumor mass extending from sigmoid colon through the pelvic wall into the subcutaneous fatty tissue with more prominent fluid densities and air densities. Plan: - Consulted general surgery, Dr. Ramirez - IV Vancomycin daily and IV Zosyn 4.5 mg q6h - Referral wound care - NPO in anticipation of possible surgical procedure #Acute diverticulitis of sigmoid colon Several days of diarrhea, no melena/hematochezia/hematemesis. No abdominal TTP Was seeing Dr. Ramirez outpatient, planned for CXR for possible mets detection and colonoscopy Plan: - Consulted general surgery, Dr. Ramirez #Leukocytosis WBC 21.5 i/s/o Plan: - Abscess management as above - CTM with daily CBC #Chronic normocytic anemia Hgb 9, HCT 29.6 On previous admission: Fe 20, TIBC 498, Fe Sat 4, Ferritin 142. Most likely anemia of chronic disease Plan: - CTM with daily CBC #Thrombocytosis most likely reactive plt 495 Plan: - Abscess management as above - CTM with daily CBC #Hyponatremia #Hypochloremia Mild. Na 135, Cl 97 Plan: - Pt NPO in anticipation of possible surgical procedure - CTM with daily BMP #Severe left renal scarring #Left renal calculus 4 mm, asymptomatic Incidental finding on CT a/p: Severe left renal scarring, 4 mm left renal calculus, no hydronephrosis or ureteral calculi. BUN and Cr WNL. eGFR >60 Plan: - CTM for symptoms #Endometrial mass 35 mm Incidental finding on CT a/p: Subtle endometrial uterine mass 36 mm. Plan: - CTM for symptoms Checklist Dispo: Admit to med surg, pending gen surg consult Diet: NPO in anticipation of possible surgical procedure Bowel Reg: n/a VTE ppx: heparin subQ GI ppx: n/a Pain mgmt: Tylenol PRN Code status: full Plan discussed with Dr. Castro and Dr. Enrique Morel MD PGY1 Attending Provider Attestation/Addendum 55-year-old female with diverticular disease she was admitted for acute sigmoid diverticulitis. Imaging demonstrates xtension into the pelvic abdominal wall and subcutaneous abscess, the patient noted seropurulent drainage for the last few days and 2 areas on her lower abdominal wall on the left side. The patient has mild to moderate pain. Imaging also described endometrial mass measuring 35 mm. She has white count of 22,000. The patient was started on broad-spectrum antibiotics. Surgical consultation was requested. I discussed with and supervised the resident physician who took care of this patient. I agree with the assessment and plan as above..
[2025-06-26] MEDS: cefTRIAXone/D5w 1gm IV premix 1 GM/50 ML BAG IV (01:12)
[2025-06-26] MEDS: metroNIDAZOLE/NS 500 MG IVPB 500 MG/100 ML BAG 100 MG IV (01:32)
[2025-06-26] MEDS: VANCOMYCIN/NS 1 GM IVPB 200 ML IV (01:57)
[2025-06-26] MEDS: PIPER/TAZO INJ 4.5 GM in SODIUM CHLORIDE 0.9% (POP) 100 ML IV ×3 (02:14→21:37)
[2025-06-26 05:56] LABS: Basophils # (Auto) 0.0 Thou/mm3 (0.0-0.2); Basophils % (Auto) 0 % (0-2.5); Eosinophils # (Auto) 0.1 Thou/mm3 (0.0-0.5); Eosinophils % (Auto) 1 % (0-10); Hematocrit 26.1 % (36.0-46.0); Immature Granulocytes Auto 0.18 Thou/mm3 (0.00-0.00); Lymphocytes # (Auto) 1.5 Thou/mm3 (1.0-4.8); Lymphocytes % (Auto) 10 % (10-50); Mean Corpuscular HGB Conc 29.9 g/dl (31.0-37.0); Mean Corpuscular Hemoglobin 24.4 pg (25.0-35.0); Mean Corpuscular Volume 82 fL (80-100); Monocytes # (Auto) 0.8 Thou/mm3 (0.0-0.8); Monocytes % (Auto) 6 % (0-12); Neutrophils # (Auto) 12.3 Thou/mm3 (1.8-7.7); Neutrophils % (Auto) 83 % (37-80); Nucleated Red Blood Cell # 0.00 Thou/mm3 (0.00-0.00); Nucleated Red Blood Cell % 0 /100 WBC (0); Platelet Count 428 Thou/mm3 (140-440); RDW Standard Deviation 47.7 fL (36.4-46.3); Red Blood Count 3.20 Miln/mm3 (4.00-5.20); White Blood Count 14.9 Thou/mm3 (3.6-11.0)
[2025-06-26 06:09] LABS: Hemoglobin 7.8 g/dL (12.0-16.0)
[2025-06-26 06:18] LABS: Anion Gap 11 (7-16); BUN/Creatinine Ratio 14 Ratio (12-20); Blood Urea Nitrogen 7 mg/dL (9-23); Calcium 8.4 mg/dL (8.3-10.6); Carbon Dioxide 27.0 mMol/L (20.0-31.0); Chloride 100 mMol/L (98-107); Creatinine (Component) 0.5 mg/dL (0.6-1.3); Estimated Creatinine Clearance 131.0 mL/min (>60); Glucose 101 mg/dL (74-106); Magnesium 2.3 mg/dL (1.6-2.6); Osmolality,Calculated 273 (275-295); Potassium 3.1 mMol/L (3.4-5.1); Sodium 138 mMol/L (136-145); eGFR > 60 See Note
--- NOTE | 2025-06-26 09:09 | ESPR_ITS ---
<Statement entered by Chad Sharpe MD - 06/27/25 15:06> I saw and examined patient personally and supervised PGY 1 resident, Dr. York with formulating a management plan. I agree with the documentation with the exceptions as listed below. Patient had IR guided abscess drainage on 02/02 sigmoid diverticulitis complicated by abscess. Her condition did not improved and she developed a enterocutaneous fistula for which she was being followed up outpatient by general surgeon, Dr. Ramirez. This Tuesday she had an appointment with Dr. Ballesteros who tentatively scheduled her for a colonoscopy on 07/03. However today she is noticed increasing foul-smelling drainage from her fistula and decided to come in to the hospital. Dr. Ramirez wants a colonoscopy for tissue biopsy to rule out IBD as an etiology of the enterocutaneous fistula. She will be out of town until next week and asked that GI, Dr. Taylor will be consulted. Currently patient is on Zosyn and vancomycin IV for diverticular abscess. Plan of care discussed with Attending Dr. Eduarda Sharpe MD PGY 2 Disclaimer: This note was dictated by speech recognition. Minor errors in news reel cameraman may be present due to voice recognition software. Documentation for date of: 06/26/25 Subjective Subjective Interval history: Patient examined bedside, labs reviewed. Patient confirms HPI, endorses ongoing nausea and loose stools without blood. She denies vomiting and denies pain at the moment. She believes her sites her sites where the abscess communicates with the skin are draining a lot of fluid. Colostomy bag placed to measure output Exam Vital Signs Temp Pulse Resp BP Pulse Ox O2 Del Method 98.0 F 94 18 96/65 97 Room Air 06/26/25 08:00 06/26/25 08:00 06/26/25 08:00 06/26/25 08:00 06/26/25 08:00 06/26/25 08:00 Narrative Exam General: No acute distress, well nourished Eye: PERRL, EOMI, normal conjunctiva, no scleral icterus HENT: Normocephalic, atraumatic, normal hearing, moist oral mucosa Neck: Supple, non-tender, no JVD, no lymphadenopathy Lungs: Clear to auscultation bilaterally, non-labored respirations, symmetric chest rise, no use of accessory muscles Heart: Normal S1 and S2, no S3 or S4 appreciated. Normal rate and regular rhythm, no murmurs, rubs gallops, or edema. Peripheral pulses intact bilaterally, capillary refill brisk distally Abdomen: Soft, non-tender, non-distended, normal bowel sounds. No guarding or rebound tenderness. Musculoskeletal: Normal range of motion and strength, no tenderness or swelling Skin: Two open lesions (LLQ and left suprapubic) draining serosanguinous fluid, the inguinal site had purulent material expressed from it, while the top drainage site had serosanguinous fluid expressed, foul odor, surrounding warmth, pink granulation tissue, edema, TTP Neurologic: Alert, awake and oriented x3. CN II-XII grossly intact. No focal neuro deficits. No signs of meningeal irritation noted. Psychiatric: Cooperative, appropriate mood and affect Objective Labs 06/27/25 04:52 06/27/25 04:52 Labs: Laboratory Results - last 24 hr 06/25/25 06/25/25 06/26/25 18:25 19:24 04:45 WBC 21.5 H 14.9 H D RBC 3.69 L 3.20 L Hgb 9.0 L 7.8 L Hct 29.6 L 26.1 L MCV 80 82 MCH 24.4 L 24.4 L MCHC 30.4 L 29.9 L RDW Std Deviation 46.9 H 47.7 H Plt Count 495 H D 428 D Neut % (Auto) 86 H 83 H Lymph % (Auto) 8 L 10 [place] % (Auto) 5 6 Eos % (Auto) 0 1 Baso % (Auto) 0 0 Neut # (Auto) 18.5 H 12.3 H Lymph # (Auto) 1.6 1.5 [place] # (Auto) 1.1 H 0.8 Eos # (Auto) 0.0 0.1 Baso # (Auto) 0.1 0.0 Immature Gran # (Auto) 0.27 H 0.18 H Absolute Nucleated RBC 0.00 0.00 Immature Gran % 1 H 1 H Nucleated RBC % 0 0 Sodium 135 L 138 Potassium 3.4 3.1 L Chloride 97 L 100 Carbon Dioxide 25.6 27.0 Anion Gap 12 11 BUN 7 L 7 L Creatinine 0.6 0.5 L Estim Creat Clear Calc 109.2 131.0 eGFR > 60 > 60 BUN/Creatinine Ratio 12 14 Glucose 141 H 101 Calculated Osmolality 270 L 273 L Lactic Acid 1.8 Calcium 8.8 8.4 Corrected Calcium 8.9 Magnesium 2.3 Total Bilirubin 0.4 AST 24 ALT 9 L Alkaline Phosphatase 99 Total Protein 7.4 Albumin 3.9 Globulin 3.5 Albumin/Globulin Ratio 1.1 L Lipase 19 Procalcitonin 0.18 Ur Collection Type Clean Catch Urine Color Yellow Urine Clarity Turbid A Urine pH 6.0 Ur Specific [place] 1.028 Urine Protein 1+ A Urine Glucose (UA) Negative Urine Ketones Negative Urine Blood Trace Urine Nitrite Negative Urine Bilirubin Negative Urine Urobilinogen (Auto) 12 Ur Leukocyte Esterase Positive Urine RBC 6 H Urine WBC 5 Ur Squamous Epith Cells 32 H Amorphous Crystals Present A Urine Bacteria None Urine HCG, Qual Negative Quality Measures Quality Measures none Assessment & Plan Assessment Current Active Medications: Generic Name Dose Route Start Last Admin Trade Name Freq PRN Reason Stop Dose Admin Acetaminophen 650 mg 06/26/25 00:00 Acetaminophen 325 Mg Tablet PO 07/26/25 00:00 Q6H PRN Fever >100.3 Acetaminophen 650 mg 06/26/25 00:00 Acetaminophen 325 Mg Tablet PO 07/26/25 00:00 Q6H PRN PAIN SCALE 1-3 (mild Heparin Sodium (Porcine) 5,000 unit 06/26/25 06:00 06/26/25 05:04 Heparin Sod Inj 5000 Unit/Ml Vial SC 07/10/25 05:59 Not Given Q8HR BRIANNA Piperacillin Sod/Tazobactam 100 mls @ 200 mls/hr 06/26/25 10:00 Sod 4.5 gm/ Sodium Chloride IV 07/03/25 09:59 Q8HR BRIANNA Protocol Vancomycin HCl/Dextrose 250 mls @ 120 mls/hr 06/26/25 10:00 Vancomycin/D5w 1,250 Mg Ivpb IV 07/03/25 09:59 Q12H BRIANNA Protocol Ondansetron HCl 4 mg 06/26/25 00:00 Ondansetron Inj 2 Mg/Ml Inj 2 Ml IVP 07/26/25 00:00 Q6H PRN NAUSEA OR VOMITING Protocol Pharmacy Consult 1 each 06/26/25 09:00 Vancomycin Pharmacy To Dose 1 Each Each IV 07/26/25 08:59 QDAY PRN PROTOCOL Plan Ms. Jackson is a 55 y/o female with PMH diverticulosis with peridiverticular abscess requiring percutaneous drainage in 02/03 who presented to ED 06/25 worsening serosanguinous drainage of LLQ and left suprapubic abscesses. Admitted for peridiverticular abscesses. #Peridiverticular abscesses #Acute diverticulitis of sigmoid colon Several days of diarrhea, no melena/hematochezia/hematemesis. No abdominal TTP. Was seeing Dr. Ramirez outpatient, planned for CXR for possible mets detection and colonoscopy. Two abscesses draining foul-smelling serosanguinous fluid, surrounding warmth, erythema, edema, TTP. Previous wound culture grew E coli, managed with IV Zosyn, afebrile, leukocytosis leukocytosis WBC 21.5. Lactic acid WNL. CT a/p showed acute diverticulitis sigmoid colon, enlarging abscess tumor mass extending from sigmoid colon through the pelvic wall into the subcutaneous fatty tissue with more prominent fluid densities and air densities. GI consulted to rule out tumor mass vs IBD. Plan: - Consulted general surgery, Dr. Ramirez: If there is no intracolonic mass then IR biopsy may be warranted for clarifying the etiology of this mass. Depending upon these findings pt could require sigmoidectomy which would likely require fecal diversion either by colostomy or loop ileostomy. - Ok with colostomy bag to measure 24 hour output. - Bag output: - IV Vancomycin daily and IV Zosyn 4.5 mg q6h - Referral wound care - NPO in anticipation of possible surgical procedure - GI consulted recs appreciated: - Wound healing vitamins initiated #Leukocytosis WBC 21.5 --> 14.9 Plan: - Abscess management as above - CTM with daily CBC - Urine cx:____ #Chronic normocytic anemia Hgb 9, HCT 29.6 On previous admission: Fe 20, TIBC 498, Fe Sat 4, Ferritin 142. Most likely anemia of chronic disease Plan: - CTM with daily CBC #Thrombocytosis most likely reactive plt 495 Plan: - Abscess management as above - CTM with daily CBC #Hyponatremia #Hypochloremia Mild. Na 135, Cl 97 Plan: - Pt NPO in anticipation of possible surgical procedure - CTM with daily BMP #Severe left renal scarring #Left renal calculus 4 mm, asymptomatic Incidental finding on CT a/p: Severe left renal scarring, 4 mm left renal calculus, no hydronephrosis or ureteral calculi. BUN and Cr WNL. eGFR >60 Plan: - CTM for symptoms #Endometrial mass 35 mm Incidental finding on CT a/p: Subtle endometrial uterine mass 36 mm. Plan: - CTM for symptoms Checklist Dispo: Admit to med surg, pending gen surg consult Diet: NPO in anticipation of possible surgical procedure Bowel Reg: n/a VTE ppx: heparin subQ GI ppx: n/a Pain mgmt: Tylenol PRN Code status: full Plan discussed with supervising resident Dr. Sharpe and attending Dr. Eduarda York MD PGY1 Attending Provider Attestation/Addendum I have examined the patient, reviewed labs and imaging findings, discussed the case with the resident(s), and reviewed entered orders. I agree with the plan of care as outlined in this note, with these additional summaries/recommendations: Patient seen at bedside. Patient admitted overnight for acute diverticulitis of sigmoid colon. Patient has a history of diverticulitis in the past and abscess formation that was drained on 01/2025. Patient was originally doing well but now presented back to [facility] with fevers, chills, elevated white count and abdominal pain. CT of abdomen and pelvis on admission showed acute diverticulitis of sigmoid colon and enlarging abscess versus tumor mass extending from the sigmoid colon through the pelvic wall into the subcutaneous fatty tissue with fluid densities and air densities. These imaging findings most likely represent abscess formation versus less likely tumor. Will continue IV antibiotics and follow-up culture results. Bowel rest. Will follow-up with general surgery to see if any surgical intervention is planned. Gastroenterology consulted with possible colonoscopy. Ultimately patient will likely require biopsy/drainage of sigmoid abscess versus tumor. Leukocytosis improving. Mild hypokalemia and replacement given. Patient updated on the plan and in agreement. All questions answered to satisfaction. Please see residents note for additional details and management. Dr. Eduarda MD
--- NOTE | 2025-06-26 09:36 | PD.SURCONS ---
HPI Consult details History of present illness: 55F with diverticulitis treated by catheter drainage 01/2025, who presented 05/2025 with purulent drainage from the abdominal wall with CT showing a mass extending from the sigmoid colon through to the abdominal wall. During that hospitalization pt had normal WBC, and has remained overall clinically well with no pain, no nausea, she is tolerating diet and continuing to have bowel function. I have been following up with her as an outpatient and scheduled colonoscopy for 07/03 however pt presented 06/25 due to an increase in drainage from her abdominal wall. CT findings were stable however WBC was 21.5 Review of Systems Review of Systems ROS Unobtainable: All systems reviewed & no additional complaints except as documented Meds Home Medications and Allergies Home Medications ?Medication ?Instructions ?Recorded ?Confirmed ?Type No Known Home Medications 06/26/25 06/26/25 History Allergies Allergy/AdvReac Type Severity Reaction Status Date / Time No Known Allergies Allergy Verified 06/25/25 17:08 Exam Vital Signs Temp Pulse Resp BP Pulse Ox O2 Del Method 98.0 F 94 18 96/65 97 Room Air 06/26/25 08:00 06/26/25 08:00 06/26/25 08:00 06/26/25 08:00 06/26/25 08:00 06/26/25 08:00 Constitutional Constitutional: no acute distress Routine Respiratory Exam Respiratory: Present no resp distress Routine Abdominal Exam Abdominal: Present soft, tenderness (minimal LLQ tenderness) and wound (at the LLQ there are two openings draining pus, the more superior is approx 1x1cm, more inferior 5mm. There is mild skin irritation, no feculent material ); Absent distended, rebound or guarding Results Results: Laboratory Laboratory results: results reviewed Results: Imaging CT scan - abdomen: report reviewed and image reviewed Assessment & Plan Plan 55F with diverticulitis treated by catheter drainage 01/2025, who presented 05/2025 with purulent drainage from the abdominal wall with CT showing a mass extending from the sigmoid colon through to the abdominal wall. Clinically she remains well with no pain and no signs of obstruction, not requiring any emergent intervention but due to the concern for a sigmoid mass would benefit from endoscopic evaluation. If there is no intracolonic mass then IR biopsy may be warranted for clarifying the etiology of this mass. Depending upon these findings pt could require sigmoidectomy which would likely require fecal diversion either by colostomy or loop ileostomy. I explained the above to pt and she expressed understanding Appreciate wound care, placed [place] bag over draining incisions this am Appreciate GI recs for sigmoidoscopy/colonoscopy CLD for now
--- NOTE | 2025-06-26 09:47 | PC.SS ---
Update: Patient receiving IV antibiotics. Surgery consulting.
[2025-06-26] MEDS: ASCORBIC ACID 250 MG TABLET 500 MG PO ×2 (10:38→21:38)
[2025-06-26] MEDS: ZINC SULFATE 220 MG CAPSULE PO (10:38)
[2025-06-26] MEDS: VANCOMYCIN/D5W 1,250 MG IVPB 250 ML 120 MG IV ×2 (10:38→21:39)
[2025-06-26] MEDS: MULTIVITAMINS TABLET 1 TAB PO (10:39)
[2025-06-26] MEDS: ONDANSETRON INJ 2 MG/ML INJ 2 ML 4 MG IVP (11:02)
--- NOTE | 2025-06-26 13:04 | PC.SS ---
REEL WINDER conducted bedside contact with the patient conduct initial assessment and to discuss discharge planning.? Patient confirmed demographic information.? Patient resides at home with son, Sylvia Jackson .? 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 Patient does not utilize any form of DME to assist with ambulation.? Patient does not utilize home oxygen.? Patient describes the ability to complete ADL?s independently.? Patient identified son, Sylvia Jackson; as medical surrogate decision maker.? Patient utilizes the [facility] for PCP services.? Patient does not participate with dialysis.? Patient does not possess any specialty providers.? Patient utilizes [facility] for medication services.? Plan is for the patient to return home at the time of discharge.? Family will provide transportation on behalf of the patient.? No further discharge needs identified by the patient.? No further intervention required at this time, social studies department chair will be available to address any further concerns.? Next of Kin: Sylvia Jackson D/C Plan: Home
[2025-06-26] MEDS: HEPARIN SOD INJ 5000 UNIT/ML VIAL SC ×2 (14:02→21:38)
--- NOTE | 2025-06-26 16:09 | PD.RESCONSUL ---
HPI Data of Consult Requesting Physician: Campos Lerner MD Admitting Provider: Octaviano Nunez MD Attending Provider: Campos Lerner MD Primary Care Provider: Physician No Primary/Family Consult Narrative Reason for consult: Colonoscopy History of present illness: Ms. Jackson is a 55 year old woman with a h/o diverticulosis with peridiverticular abscess requiring percutaneous drainage on 01/2025, who had recent admission 05/2025 with cc of LLQ pain errythema, swelling and blister with puralent drainage of her abdomen, who was admitted in 05/2025 for managment of peridiverticular abcess. She was evaluated at that time by General Surgery, Dr. Ramirez who opted for continuing IV abx She was discharged on a course of amoxicillin-pot clavulanate 875-125 mg and instructed to follow up with Dr. Ramirez outpatient. She was seen by Dr. Ramirez outpatient who reports discussing the case with her colleague who recommends next best steps to be endoscopic evaluation for tissue diagnosis and assessment of entire colon for other lesions. Per Dr Blancas note I discussed prep as well as the risks of colonoscopy including bleeding and perforation requiring emergency surgery. I informed pt that if she does have sigmoid cancer she will require resection which would most likely require a temporary colostomy, plus chemotherapy for preventing recurrence. She is understandably anxious about these possibilties and generally hesitant to receive chemotherapy at all but at least willing to pursue colonoscopy She was scheduled outpatient for colonoscopy on 07/03, but patient presented to the ED with notable foulsmelling and increased drainage from abdominal skin wound that communicates with the abscess She has never had a colonoscopy before She denies any systemic signs of infection, fever, chills, nausea, vomiting, dysuria she endores diarrhea, but is otherwise able to stool normally. Labs notable for Leukocytosis WBC 14 (21 on admision) Imaging notbale for CTAP with Acute diverticulitis sigmoid colon Enlarging abscess tumor mass extending from the sigmoid colon through the pelvic wall into the subcutaneous fatty tissue with more prominent fluid densities and air densities Tx Ceftriaxone metronidazole vancomycin Zosyn Multivitamins Zinc cc:: cc: Campos Lerner MD Past Medical History Surgical History OTHER SURGICAL HX: tubal ligation Exam Vital Signs Temp Pulse Resp BP Pulse Ox O2 Del Method 97.6 F 96 18 96/66 98 Room Air 06/26/25 12:00 10/15/25 12:00 06/26/25 12:00 06/26/25 12:00 06/26/25 12:00 06/26/25 12:00 Narrative Exam General: No acute distress, Eye: PERRL, EOMI, normal conjunctiva, no scleral icterus HENT: Normocephalic, atraumatic, normal hearing, moist oral mucosa Lungs: Clear to auscultation bilaterally, non-labored respirations, symmetric chest rise, no use of accessory muscles Heart: Normal S1 and S2, no S3 or S4 appreciated. Normal rate and regular rhythm, no murmurs, rubs gallops, or edema. Peripheral pulses intact bilaterally, Abdomen: Soft, non-tender, non-distended, normal bowel sounds. No guarding or rebound tenderness. Musculoskeletal: Normal range of motion and strength, no tenderness or swelling Skin: Two open lesions (LLQ and left suprapubic) draining serosanguinous fluid, the inguinal site had purulent material expressed from it, while the top drainage site had serosanguinous fluid expressed, foul odor, surrounding warmth, pink granulation tissue, edema, TTP, now dressed with ostomy bags with apple cider vineger and pus colored drainage Neurologic: Alert, awake and oriented x3. CN II-XII grossly intact. No focal neuro deficits. No signs of meningeal irritation noted. Psychiatric: Cooperative, appropriate mood and affect Results Labs 06/26/25 04:45 06/26/25 04:45 Labs: Short CBC 06/25/25 06/26/25 Range/Units 19:24 04:45 WBC 21.5 H 14.9 H D (3.6-11.0) Thou/mm3 Hgb 9.0 L 7.8 L (12.0-16.0) g/dL Hct 29.6 L 26.1 L (36.0-46.0) % Plt Count 495 H D 428 D (140-440) Thou/mm3 BMP 06/25/25 06/26/25 19:24 04:45 Sodium 135 L 138 Potassium 3.4 3.1 L Chloride 97 L 100 Carbon Dioxide 25.6 27.0 BUN 7 L 7 L Creatinine 0.6 0.5 L Glucose 141 H 101 Calcium 8.8 8.4 Liver Function 06/25/25 Range/Units 19:24 Total Bilirubin 0.4 (0.3-1.2) mg/dL AST 24 (0-34) U/L ALT 9 L (10-49) U/L Alkaline Phosphatase 99 (46-116) U/L Albumin 3.9 (3.5-5.0) gm/dL Urine 06/25/25 Range/Units 18:25 Urine Color Yellow (Lt Yel-Yel) Urine Clarity Turbid A (Clear/Hazy) Urine pH 6.0 (5.0-7.0) Ur Specific [place] 1.028 (1.001-1.035) Urine Protein 1+ A (Neg - Trace) Urine Glucose (UA) Negative (Negative) Quality Measures Quality Measures VTE prophylaxis Medications Home Medications and Allergies Home Medications ?Medication ?Instructions ?Recorded ?Confirmed ?Type No Known Home Medications 06/26/25 06/26/25 History Allergies Allergy/AdvReac Type Severity Reaction Status Date / Time No Known Allergies Allergy Verified 06/25/25 17:08 Visit Medications Acetaminophen (Acetaminophen 325 Mg Tablet) 650 mg PO Q6H PRN PRN Reason: Fever >100.3 Stop: 07/26/25 00:00 Acetaminophen (Acetaminophen 325 Mg Tablet) 650 mg PO Q6H PRN PRN Reason: PAIN SCALE 1-3 (mild Stop: 07/26/25 00:00 Ascorbic Acid (Ascorbic Acid 250 Mg Tablet) 500 mg PO BID [facility] Stop: 07/26/25 09:14 Last Admin: 06/26/25 10:38 Dose: 500 mg Heparin Sodium (Porcine) (Heparin Sod Inj 5000 Unit/Ml Vial) 5,000 unit SC Q8HR BRIANNA Stop: 07/10/25 05:59 Last Admin: 06/26/25 14:02 Dose: 5,000 unit Piperacillin Sod/Tazobactam (Sod 4.5 gm/ Sodium Chloride) 100 mls @ 200 mls/hr IV Q8HR BRIANNA; Protocol Stop: 07/03/25 09:59 Last Admin: 06/26/25 10:39 Dose: 200 mls/hr Vancomycin HCl/Dextrose (Vancomycin/D5w 1,250 Mg Ivpb) 250 mls @ 120 mls/hr IV Q12H BRIANNA; Protocol Stop: 07/03/25 09:59 Last Admin: 06/26/25 10:38 Dose: 120 mls/hr Multivitamins (Multivitamins Tablet) 1 tab PO QDAY BRIANNA Stop: 07/26/25 09:14 Last Admin: 06/26/25 10:39 Dose: 1 tab Ondansetron HCl (Ondansetron Inj 2 Mg/Ml Inj 2 Ml) 4 mg IVP Q6H PRN; Protocol PRN Reason: NAUSEA OR VOMITING Stop: 07/26/25 00:00 Last Admin: 06/26/25 11:02 Dose: 4 mg Pharmacy Consult (Vancomycin Pharmacy To Dose 1 Each Each) 1 each IV QDAY PRN PRN Reason: PROTOCOL Stop: 07/26/25 08:59 Zinc Sulfate (Zinc Sulfate 220 Mg Capsule) 220 mg PO QDAY [facility] Stop: 07/26/25 09:14 Last Admin: 06/26/25 10:38 Dose: 220 mg Discontinued Medications Metronidazole (Flagyl 500 Mg Iv) 500 mg in 100 mls @ 100 mls/hr IV X1 ONE Stop: 06/25/25 23:02 Last Admin: 06/26/25 01:32 Dose: 100 mls/hr Ceftriaxone Sodium/Dextrose (Rocephin/D5w 1gm Iv Premix) 1 gm in 50 mls @ 100 mls/hr IV X1 ONE Stop: 06/25/25 22:32 Last Admin: 06/26/25 01:12 Dose: 100 mls/hr Vancomycin/Sodium Chloride (Vancomycin/Ns 1 Gm Ivpb) 200 mls @ 120 mls/hr IV Q100M BRIANNA Stop: 06/26/25 02:49 Vancomycin/Sodium Chloride (Vancomycin/Ns 1 Gm Ivpb) 200 mls @ 120 mls/hr IV X1 ONE Stop: 06/26/25 01:09 Last Admin: 06/26/25 01:57 Dose: 120 mls/hr Piperacillin Sod/Tazobactam (Sod 4.5 gm/ Sodium Chloride) 100 mls @ 200 mls/hr IV X1 ONE; Protocol Stop: 06/26/25 00:44 Last Admin: 06/26/25 02:14 Dose: 200 mls/hr Pharmacy Consult (Vancomycin Pharmacy To Dose 1 Each Each) 1 each IV QDAY [facility] Stop: 07/26/25 08:59 Potassium Chloride (Potassium Chloride 10% 20 Meq/15 Ml Udc) 40 meq PO X1 ONE Stop: 06/26/25 07:03 Last Admin: 06/26/25 08:13 Dose: Not Given Potassium Chloride (Potassium Chloride 20 Meq Tabcr) 40 meq PO X1 ONE Stop: 06/26/25 09:01 Last Admin: 06/26/25 08:13 Dose: Not Given Assessment & Plan Plan Ms. Jackson is a 55 year old woman with a h/o diverticulosis with peridiverticular abscess requiring percutaneous drainage on 01/2025, and IV abx in 05/2025 who was being followed outpatient by Dr. Ramirez with plan for outpatient colonoscopy who presented with increased puralent drainage through skin and leukocytosis, although afebrile, pending prep for colonoscopy and biopsy (of note Dr. Ramirez is out of town till 07/03) and definitive surgical management of condition. #Acute Diverticulitis #Peridiverticular Abscess with Fistula to the skin #Diverticulosis #?Sigmoid cancer pt with increased drainage from abscess that is foul smelling. her leukocytosis is improving on zosyn and vanc Pt has never had a colonoscopy before 05/2025 CTAP Large mass in the sigmoid colon, likely tumor mass which is invading the left anterior pelvic wall and extending through the pelvic wall into the subcutaneous fatty tissue of the anterior left pelvic wall, sigmoid colon marked inflammation or diverticulitis less likely but not excluded 06/2025 CTAP with Acute diverticulitis sigmoid colon Enlarging abscess tumor mass extending from the sigmoid colon through the pelvic wall into the subcutaneous fatty tissue with more prominent fluid densities and air densities. Subtle endometrial uterine mass, 36 mm Plan - Surgery is consulted (Dr. Ramirez) - Golytely - Colonoscopy with biopsy - continue antibiotics #Chronic normocytic anemia #Thrombocytosis #Hyponatremia #Hypochloremia #Severe left renal scarring #Left renal calculus 4 mm, asymptomatic #Endometrial mass 35 mm Plan discussed with Dr. Brandon Pisano MD PGY1 Attending Provider Attestation/Addendum Patient evaluated Laboratory data reviewed Imaging studies reviewed Draining fistula to the anterior abdominal wall with a bag on it Patient has an extension of either an abscess which is peridiverticular abscess or a tumor from the sigmoid colon with purulent drainage into the anterior abdominal wall Patient will definitely need resection as well as end colostomy GoLytely prep started with a clear liquid diet CEA level Once patient is cleared will perform the colonoscopy which is currently very very tough in this clinical setting Will follow the patient closely Thank you very much for the opportunity to participate in care of this patient
[2025-06-26] MEDS: NA SU/NAHCO3/KC/PEG (Golytely) 4,000 ML BTL 4000 ML PO (21:38)
[2025-06-26 22:13] LABS: Carcinoembryonic Antigen 3.9 ng/mL (0.0-5.0)
[2025-06-27] VITALS (14 sets, daily range): BP systolic 90–135; BP diastolic 59–77; PULSE 59–96; RESP 16–26; TEMP 36.2–37; O2SAT 95–100
[2025-06-27 05:42] LABS: Basophils # (Auto) 0.0 Thou/mm3 (0.0-0.2); Basophils % (Auto) 0 % (0-2.5); Eosinophils # (Auto) 0.1 Thou/mm3 (0.0-0.5); Eosinophils % (Auto) 1 % (0-10); Hematocrit 25.1 % (36.0-46.0); Immature Granulocytes Auto 0.14 Thou/mm3 (0.00-0.00); Lymphocytes # (Auto) 1.5 Thou/mm3 (1.0-4.8); Lymphocytes % (Auto) 12 % (10-50); Mean Corpuscular HGB Conc 30.7 g/dl (31.0-37.0); Mean Corpuscular Hemoglobin 24.8 pg (25.0-35.0); Mean Corpuscular Volume 81 fL (80-100); Monocytes # (Auto) 0.6 Thou/mm3 (0.0-0.8); Monocytes % (Auto) 5 % (0-12); Neutrophils # (Auto) 9.8 Thou/mm3 (1.8-7.7); Neutrophils % (Auto) 81 % (37-80); Nucleated Red Blood Cell # 0.00 Thou/mm3 (0.00-0.00); Nucleated Red Blood Cell % 0 /100 WBC (0); Platelet Count 451 Thou/mm3 (140-440); RDW Standard Deviation 46.6 fL (36.4-46.3); Red Blood Count 3.10 Miln/mm3 (4.00-5.20); White Blood Count 12.2 Thou/mm3 (3.6-11.0)
[2025-06-27 05:45] LABS: Hemoglobin 7.7 g/dL (12.0-16.0)
[2025-06-27 05:54] LABS: Anion Gap 9 (7-16); BUN/Creatinine Ratio 12 Ratio (12-20); Blood Urea Nitrogen 6 mg/dL (9-23); Calcium 8.0 mg/dL (8.3-10.6); Carbon Dioxide 29.1 mMol/L (20.0-31.0); Chloride 101 mMol/L (98-107); Creatinine (Component) 0.5 mg/dL (0.6-1.3); Estimated Creatinine Clearance 128.2 mL/min (>60); Glucose 96 mg/dL (74-106); Magnesium 2.3 mg/dL (1.6-2.6); Osmolality,Calculated 275 (275-295); Phosphorous 4.9 mg/dL (2.4-5.1); Potassium 3.1 mMol/L (3.4-5.1); Sodium 139 mMol/L (136-145); eGFR > 60 See Note
[2025-06-27] MEDS: PIPER/TAZO INJ 4.5 GM in SODIUM CHLORIDE 0.9% (POP) 100 ML IV ×3 (06:27→22:34)
[2025-06-27] MEDS: HEPARIN SOD INJ 5000 UNIT/ML VIAL SC ×2 (06:27→14:28)
[2025-06-27] MEDS: MULTIVITAMINS TABLET 1 TAB PO (08:34)
[2025-06-27] MEDS: POTASSIUM CHL 10 mEq IVPB 10 MEQ/100 ML BAG 50 MEQ IV ×3 (08:34→11:32)
[2025-06-27] MEDS: ZINC SULFATE 220 MG CAPSULE PO (08:34)
[2025-06-27] MEDS: ASCORBIC ACID 250 MG TABLET 500 MG PO ×2 (08:34→22:40)
--- NOTE | 2025-06-27 08:59 | ESPR_ITS ---
<Statement entered by Chad Sharpe MD - 06/27/25 15:56> I saw and examined patient personally and supervised PGY 1 resident, Dr. York With formulating a management plan. I agree with the documentation with the exceptions as listed below. Patient had less than 400 cc of output from her fistula in the past 24 hours. Currently she is undergoing GoLytely bowel prep and scheduled for colonoscopy once cleared by tufting machine operator single needle Dr. Taylor. MRSA nares was negative, blood culture was negative x 24 hours preliminary and wound culture is pending at this point. Vancomycin was discontinued and patient is only on Zosyn 4.5 g IV every 8 hourly for diverticular abscess. Plan of care discussed with Attending Dr. Eduarda Sharpe MD PGY 2 Disclaimer: This note was dictated by speech recognition. Minor errors in tank furnace operator may be present due to voice recognition software. Documentation for date of: 06/27/25 Subjective Subjective Interval history: Patient examined bedside, labs reviewed. x2 colostomy bags removed over 12 hours. urine cs came back showing contamination. Dr. Taylor initiated golytely prep plans for colonoscopy today. Patient has no complaints and is agreeable and understanding to the procedure. Exam Vital Signs Temp Pulse Resp BP Pulse Ox O2 Del Method 97.4 F 87 18 93/62 97 Room Air 06/27/25 07:32 06/27/25 07:32 06/27/25 07:32 06/27/25 07:32 06/27/25 07:32 06/27/25 07:32 Narrative Exam General: No acute distress, well nourished Eye: PERRL, EOMI, normal conjunctiva, no scleral icterus HENT: Normocephalic, atraumatic, normal hearing, moist oral mucosa Neck: Supple, non-tender, no JVD, no lymphadenopathy Lungs: Clear to auscultation bilaterally, non-labored respirations, symmetric chest rise, no use of accessory muscles Heart: Normal S1 and S2, no S3 or S4 appreciated. Normal rate and regular rhythm, no murmurs, rubs gallops, or edema. Peripheral pulses intact bilaterally, capillary refill brisk distally Abdomen: Soft, non-tender, non-distended, normal bowel sounds. No guarding or rebound tenderness. Musculoskeletal: Normal range of motion and strength, no tenderness or swelling Skin: Two open lesions (LLQ and left suprapubic) draining serosanguinous fluid, the inguinal site had purulent material expressed from it, while the top drainage site had serosanguinous fluid expressed, foul odor, surrounding warmth, pink granulation tissue, edema, appropriately TTP. 06/27 vinegar fluid from drainage site Neurologic: Alert, awake and oriented x3. CN II-XII grossly intact. No focal neuro deficits. No signs of meningeal irritation noted. Psychiatric: Cooperative, appropriate mood and affect Objective Labs 06/28/25 04:55 06/28/25 04:55 Labs: Laboratory Results - last 24 hr 06/26/25 06/26/25 06/27/25 04:45 09:45 04:52 WBC 12.2 H RBC 3.10 L Hgb 7.7 L Hct 25.1 L MCV 81 MCH 24.8 L MCHC 30.7 L RDW Std Deviation 46.6 H Plt Count 451 H Neut % (Auto) 81 H Lymph % (Auto) 12 [place] % (Auto) 5 Eos % (Auto) 1 Baso % (Auto) 0 Neut # (Auto) 9.8 H Lymph # (Auto) 1.5 [place] # (Auto) 0.6 Eos # (Auto) 0.1 Baso # (Auto) 0.0 Immature Gran # (Auto) 0.14 H Absolute Nucleated RBC 0.00 Immature Gran % 1 H Nucleated RBC % 0 Sodium 139 Potassium 3.1 L Chloride 101 Carbon Dioxide 29.1 Anion Gap 9 BUN 6 L Creatinine 0.5 L Estim Creat Clear Calc 128.2 eGFR > 60 BUN/Creatinine Ratio 12 Glucose 96 Calculated Osmolality 275 Calcium 8.0 L Phosphorus 4.9 Magnesium 2.3 Carcinoembryonic Ag 3.9 Blood Type O Positive Antibody Screen NEGATIVE Blood Bank Wristband ID Yes Quality Measures Quality Measures VTE prophylaxis Assessment & Plan Assessment Current Active Medications: Generic Name Dose Route Start Last Admin Trade Name Freq PRN Reason Stop Dose Admin Acetaminophen 650 mg 06/26/25 00:00 Acetaminophen 325 Mg Tablet PO 07/26/25 00:00 Q6H PRN Fever >100.3 Acetaminophen 650 mg 06/26/25 00:00 Acetaminophen 325 Mg Tablet PO 07/26/25 00:00 Q6H PRN PAIN SCALE 1-3 (mild Ascorbic Acid 500 mg 06/26/25 09:15 06/27/25 08:34 Ascorbic Acid 250 Mg Tablet PO 07/26/25 09:14 500 mg BID BRIANNA Administration Heparin Sodium (Porcine) 5,000 unit 06/26/25 06:00 06/27/25 06:27 Heparin Sod Inj 5000 Unit/Ml Vial SC 07/10/25 05:59 5,000 unit Q8HR BRIANNA Administration Piperacillin Sod/Tazobactam 100 mls @ 200 mls/hr 06/26/25 10:00 06/27/25 06:27 Sod 4.5 gm/ Sodium Chloride IV 07/03/25 09:59 200 mls/hr Q8HR BRIANNA Administration Protocol Potassium Chloride 10 meq in 100 mls @ 100 mls/hr 06/27/25 08:06 06/27/25 08:34 Kcl Ivpb IV 06/27/25 14:05 100 mls/hr Q1H BRIANNA Administration Multivitamins 1 tab 06/26/25 09:15 06/27/25 08:34 Multivitamins Tablet PO 07/26/25 09:14 1 tab QDAY BRIANNA Administration Ondansetron HCl 4 mg 06/26/25 00:00 06/26/25 11:02 Ondansetron Inj 2 Mg/Ml Inj 2 Ml IVP 07/26/25 00:00 4 mg Q6H PRN Administration NAUSEA OR VOMITING Protocol Pharmacy Consult 1 each 06/26/25 09:00 Vancomycin Pharmacy To Dose 1 Each Each IV 07/26/25 08:59 QDAY PRN PROTOCOL Zinc Sulfate 220 mg 06/26/25 09:15 06/27/25 08:34 Zinc Sulfate 220 Mg Capsule PO 07/26/25 09:14 220 mg QDAY BRIANNA Administration Plan Ms. Jackson is a 55 y/o female with PMH diverticulosis with peridiverticular abscess requiring percutaneous drainage in 02/03 who presented to ED 06/25 worsening serosanguinous drainage of LLQ and left suprapubic abscesses. Admitted for peridiverticular abscesses. Patient has not noticed any blood in stool or fecal matter in her urine, or any changes to her urination as well as no foul smelling vaginal excretions or changes in menstruation. Colonoscopy today with Dr. Taylor. #Sigmoid diverticulitis complicated by #Peridiverticular abscesses #& Enterocutaneous Fistula Several days of diarrhea, no melena/hematochezia/hematemesis. No abdominal TTP. Was seeing Dr. Ramirez outpatient, planned for CXR for possible mets detection and colonoscopy. Two abscesses draining foul-smelling serosanguinous fluid, surrounding warmth, erythema, edema, TTP. Previous wound culture grew E coli, managed with IV Zosyn, afebrile, leukocytosis leukocytosis WBC 21.5. Lactic acid WNL. CT a/p showed acute diverticulitis sigmoid colon, enlarging abscess tumor mass extending from sigmoid colon through the pelvic wall into the subcutaneous fatty tissue with more prominent fluid densities and air densities. GI consulted to rule out tumor mass vs IBD. Plan: - Consulted general surgery, Dr. Ramirez: If there is no intracolonic mass then IR biopsy may be warranted for clarifying the etiology of this mass. Depending upon these findings pt could require sigmoidectomy which would likely require fecal diversion either by colostomy or loop ileostomy. - Ok with colostomy bag to measure 24 hour output. - Bag output: x2 bag over 12 hours 06/27 - IV Vancomycin daily and IV Zosyn 4.5 mg q6h - Referral wound care - Ro - GI consulted recs appreciated: Plan for colonoscopy today 06/27 - Wound healing vitamins initiated #Leukocytosis WBC 21.5 --> 14.9. no signs of UTI Plan: - Abscess management as above - CTM with daily CBC - Urine cx: possible contmaination #Chronic normocytic anemia Hgb 9, HCT 29.6 On previous admission: Fe 20, TIBC 498, Fe Sat 4, Ferritin 142. Most likely anemia of chronic disease Plan: - CTM with daily CBC #Thrombocytosis most likely reactive plt 495 Plan: - Abscess management as above - CTM with daily CBC #Hyponatremia #Hypochloremia Mild. Na 135, Cl 97 Plan: - CTM with daily BMP #Severe left renal scarring #Left renal calculus 4 mm, asymptomatic Incidental finding on CT a/p: Severe left renal scarring, 4 mm left renal calculus, no hydronephrosis or ureteral calculi. BUN and Cr WNL. eGFR >60 Plan: - CTM for symptoms #Endometrial mass 35 mm Incidental finding on CT a/p: Subtle endometrial uterine mass 36 mm. Plan: - CTM for symptoms Checklist Dispo: Admit to med surg, pending gen surg consult Diet: CLD in anticipation of possible surgical procedure Bowel Reg: n/a VTE ppx: heparin subQ GI ppx: n/a Pain mgmt: Tylenol PRN Code status: full Plan discussed with supervising resident Dr. Sharpe and attending Dr. Eduarda York MD PGY1 Attending Provider Attestation/Addendum I have examined the patient, reviewed labs and imaging findings, discussed the case with the resident(s), and reviewed entered orders. I agree with the plan of care as outlined in this note, with these additional summaries/recommendations: Patient seen at bedside. No acute overnight events. She still endorses abdominal pain/discomfort. Patient admitted for acute diverticulitis of sigmoid colon. Patient has a history of diverticulitis in the past and abscess formation that was drained on 01/2025. Patient was originally doing well but now presented back to [facility] with fevers, chills, elevated white count and abdominal pain. CT of abdomen and pelvis on admission showed acute diverticulitis of sigmoid colon and enlarging abscess versus tumor mass extending from the sigmoid colon through the pelvic wall into the subcutaneous fatty tissue with fluid densities and air densities. These imaging findings most likely represent abscess formation versus less likely tumor. Will continue IV antibiotics and follow-up culture results. Bowel rest. General surgery following. Gastroenterology consulted with plans for colonoscopy & patient receiving golytely. Leukocytosis improving. Mild hypokalemia and replacement given. Patient updated on the plan and in agreement. All questions answered to satisfaction. Please see residents note for additional details and management. Dr. Eduarda MD
[2025-06-27] MEDS: POTASSIUM CHLORIDE 10% 20 MEQ/15 ML UDC 30 MEQ PO (09:51)
[2025-06-27] MEDS: RINGERS LACTATED 1000 ML 1,000 ML 999 ML IV (13:42)
--- NOTE | 2025-06-27 19:47 | SUR.PHASEI ---
1943 To PACU awake and alert following simple commands continue to monitor pt vital signs and status.
--- NOTE | 2025-06-27 20:15 | SUR.PHASEI ---
2014 Transfer to room 366 in stable condition, no complaints no s/s of distress noted.
[2025-06-27 21:41] LABS: Vancomycin,Trough 4.3 mcg/mL (5.0-10.0)
[2025-06-28] VITALS: BP 95/60; PULSE 87; RESP 16; TEMP 36.6; O2SAT 97
[2025-06-28 04:00] VITALS: BP 96/63; PULSE 89; RESP 18; TEMP 36.6; O2SAT 98
[2025-06-28 05:48] LABS: Basophils # (Auto) 0.1 Thou/mm3 (0.0-0.2); Basophils % (Auto) 1 % (0-2.5); Lymphocytes # (Auto) 1.6 Thou/mm3 (1.0-4.8); Mean Corpuscular Volume 82 fL (80-100); Monocytes # (Auto) 0.6 Thou/mm3 (0.0-0.8); Monocytes % (Auto) 6 % (0-12); Nucleated Red Blood Cell # 0.00 Thou/mm3 (0.00-0.00); Nucleated Red Blood Cell % 0 /100 WBC (0); White Blood Count 10.2 Thou/mm3 (3.6-11.0)
[2025-06-28 05:50] LABS: Eosinophils # (Auto) 0.1 Thou/mm3 (0.0-0.5); Eosinophils % (Auto) 1 % (0-10); Hematocrit 24.7 % (36.0-46.0); Immature Granulocytes Auto 0.21 Thou/mm3 (0.00-0.00); Lymphocytes % (Auto) 15 % (10-50); Mean Corpuscular HGB Conc 30.0 g/dl (31.0-37.0); Mean Corpuscular Hemoglobin 24.5 pg (25.0-35.0); Neutrophils # (Auto) 7.7 Thou/mm3 (1.8-7.7); Neutrophils % (Auto) 75 % (37-80); Platelet Count 459 Thou/mm3 (140-440); RDW Standard Deviation 48.1 fL (36.4-46.3); Red Blood Count 3.02 Miln/mm3 (4.00-5.20)
[2025-06-28 06:28] LABS: Alanine Aminotransferase < 7 U/L (10-49); Albumin, Serum 2.9 gm/dL (3.5-5.0); Albumin/Globulin Ratio 1.1 (1.2-2.2); Alkaline Phosphatase 66 U/L (46-116); Anion Gap 10 (7-16); Aspartate Amino Transferase 10 U/L (0-34); BUN/Creatinine Ratio 10 Ratio (12-20); Bilirubin,Total 0.3 mg/dL (0.3-1.2); Blood Urea Nitrogen < 5 mg/dL (9-23); Calcium 8.1 mg/dL (8.3-10.6); Calcium (Corrected) 9.0 mg/dL (8.5-10.1); Carbon Dioxide 26.6 mMol/L (20.0-31.0); Chloride 106 mMol/L (98-107); Creatinine (Component) 0.5 mg/dL (0.6-1.3); Estimated Creatinine Clearance 128.2 mL/min (>60); Globulin 2.7 gm/dL (2.3-3.5); Glucose 92 mg/dL (74-106); Magnesium 2.2 mg/dL (1.6-2.6); Osmolality,Calculated 282 (275-295); Phosphorous 5.2 mg/dL (2.4-5.1); Potassium 3.4 mMol/L (3.4-5.1); Sodium 143 mMol/L (136-145); Total Protein 5.6 gm/dL (5.7-8.2); eGFR > 60 See Note
[2025-06-28] MEDS: PIPER/TAZO INJ 4.5 GM in SODIUM CHLORIDE 0.9% (POP) 100 ML IV ×3 (06:30→21:07)
[2025-06-28 06:40] LABS: Hemoglobin 7.4 g/dL (12.0-16.0)
[2025-06-28 08:00] VITALS: BP 96/63; PULSE 90; RESP 17; TEMP 36.1; O2SAT 97
[2025-06-28] MEDS: ASCORBIC ACID 250 MG TABLET 500 MG PO ×2 (08:56→20:02)
[2025-06-28] MEDS: ZINC SULFATE 220 MG CAPSULE PO (08:56)
[2025-06-28] MEDS: MULTIVITAMINS TABLET 1 TAB PO (08:56)
--- NOTE | 2025-06-28 10:51 | PD.HHPROG ---
Documentation for date of: 06/28/25 Subjective - Hospitalist Subjective Interval history: Patient seen at bedside. No acute overnight events. Patient underwent colonoscopy yesterday which revealed ulcerated obstructing large mass in sigmoid colon with oozing present. Mass is 45 cm from point of entry at anal verge. I discussed these findings with the patient and the possibility of this being malignancy. She showed understanding. Patient denies headache, chest pain, shortness of breath, palpitations, cough, and no urinary symptoms at this time. Vital signs are stable and patient is afebrile. Review of Systems Review of Systems Systems Reviewed: All systems reviewed, normal except as documented Exam Vital Signs Temp Pulse Resp BP Pulse Ox O2 Del Method O2 Flow Rate 97.0 F 90 17 96/63 97 Room Air 3 06/28/25 08:00 06/28/25 08:00 06/28/25 08:00 06/28/25 08:00 06/28/25 08:00 06/28/25 08:00 06/27/25 19:32 Narrative General: No acute distress Eye: PERRL, EOMI HENT: Normocephalic, atraumatic, moist oral mucosa Neck: Supple, non-tender Lungs: Clear to auscultation bilaterally, non-labored respirations, symmetric chest rise Heart: Normal S1 and S2, no S3 or S4 appreciated. Normal rate and regular rhythm, no murmurs, rubs gallops Abdomen: Soft, non-tender, non-distended, normal bowel sounds. No guarding or rebound tenderness. Skin: Two open lesions (LLQ and left suprapubic) draining serosanguinous fluid Neurologic: Alert, awake and oriented x3. CN II-XII grossly intact. Psychiatric: Cooperative, appropriate mood and affect Objective - Hospitalist Labs Diagram: 06/28/25 04:55 06/28/25 04:55 Labs: Laboratory Results - last 24 hr 06/27/25 06/28/25 21:03 04:55 WBC 10.2 RBC 3.02 L Hgb 7.4 L Hct 24.7 L MCV 82 MCH 24.5 L MCHC 30.0 L RDW Std Deviation 48.1 H Plt Count 459 H Neut % (Auto) 75 Lymph % (Auto) 15 [place] % (Auto) 6 Eos % (Auto) 1 Baso % (Auto) 1 Neut # (Auto) 7.7 Lymph # (Auto) 1.6 [place] # (Auto) 0.6 Eos # (Auto) 0.1 Baso # (Auto) 0.1 Immature Gran # (Auto) 0.21 H Absolute Nucleated RBC 0.00 Immature Gran % 2 H Nucleated RBC % 0 Sodium 143 Potassium 3.4 Chloride 106 Carbon Dioxide 26.6 Anion Gap 10 BUN < 5 L Creatinine 0.5 L Estim Creat Clear Calc 128.2 eGFR > 60 BUN/Creatinine Ratio 10 L Glucose 92 Calculated Osmolality 282 Calcium 8.1 L Corrected Calcium 9.0 Phosphorus 5.2 H Magnesium 2.2 Total Bilirubin 0.3 AST 10 ALT < 7 L Alkaline Phosphatase 66 D Total Protein 5.6 L Albumin 2.9 L D Globulin 2.7 Albumin/Globulin Ratio 1.1 L Vancomycin Trough 4.3 L Assessment & Plan Assessment: Patient is a 55 year old female with a medical history of diverticulosis with peridiverticular abscess requiring percutaneous drainage on 02/03 who presented to [facility] on 06/25/25 with chief complaint of worsening serosanguinous drainage of LLQ and left suprapubic abscesses. Admitted for peridiverticular abscesses. #Acute Sigmoid diverticulitis #Sigmoid Mass #Enterocutaneous Fistula CT a/p showed acute diverticulitis sigmoid colon, enlarging abscess tumor mass extending from sigmoid colon through the pelvic wall into the subcutaneous fatty tissue with more prominent fluid densities and air densities. - Ok with colostomy bag to measure 24 hour output. - IV Vancomycin daily and IV Zosyn 4.5 mg q6h - Referral wound care - GI consulted recs appreciated - Wound healing vitamins initiated - Plan: 50 cc output in colostomy bag in the last 24 hours which is quite stable and low output. Patient underwent colonoscopy on 06/28 which revealed a ulcerated completely obstructing large sigmoid mass. Biopsies were taken. The mass is at 45 cm from the point of entry of the anal verge. Completely obstructing. Findings are concerning for malignancy. CEA within normal limits. Case discussed with general surgery who reports likely surgical intervention on Tuesday07/02/25. If patient improves over the weekend then can be discharged and follow-up with surgery outpatient on Tuesday versus remaining hospitalized. We will resume diet today. Hemoglobin has been downtrending and patient will remain hospitalized for now. Pain management as needed. Follow-up biopsy results. Wound culture grew E. coli and continue IV antibiotic. Blood culture showed no growth at 48 hours. #Chronic normocytic anemia Hgb 9, HCT 29.6 On previous admission: Fe 20, TIBC 498, Fe Sat 4, Ferritin 142. Most likely anemia of chronic disease Plan: Hemoglobin continues to downtrend and is 7.4 today. Will transfuse for hemoglobin less than 7. Most likely anemia of chronic disease #Left renal calculus 4 mm, asymptomatic Incidental finding on CT a/p: Severe left renal scarring, 4 mm left renal calculus, no hydronephrosis or ureteral calculi. BUN and Cr WNL. eGFR >60 Plan: Follow-up outpatient. No intervention needed at this time. Patient encouraged to stay hydrated. #Endometrial mass 35 mm Incidental finding on CT a/p: Subtle endometrial uterine mass 36 mm. Plan: Follow-up outpatient for further workup and management Diet: Cardiac VTE ppx: heparin subQ GI ppx: n/a Pain mgmt: Tylenol PRN Code status: full Dispo: Ad[facility] for acute diverticulitis and found to have colonic mass Dr. Eduarda MD Time Spent with Patient Time: Total time spent is greater than 50% in coordination of care (as documented) at patient's floor/unit and/or counseling patient: Time with patient: Greater than 35 minutes Reason for Continued Stay Reason for continued stay: IV antibiotics Quality Measures Quality Measures VTE prophylaxis
[2025-06-28 12:00] VITALS: BP 94/64; PULSE 86; RESP 18; TEMP 36.7; O2SAT 97
[2025-06-28] MEDS: HEPARIN SOD INJ 5000 UNIT/ML VIAL SC ×2 (14:27→21:12)
[2025-06-28 16:00] VITALS: BP 101/74; PULSE 88; RESP 18; TEMP 36.2; O2SAT 97
--- NOTE | 2025-06-28 19:05 | ESPR_ITS ---
Documentation for date of: 06/28/25 Subjective Subjective Interval history: Spoke with Dr. Ramirez last night. Patient clearly needs surgical intervention with left colectomy Timing will be decided by colorectal surgeon Exam Vital Signs Temp Pulse Resp BP Pulse Ox O2 Del Method O2 Flow Rate 97.1 F 88 18 101/74 97 Room Air 3 06/28/25 16:00 06/28/25 16:00 06/28/25 16:00 06/28/25 16:00 06/28/25 16:00 06/28/25 16:00 06/27/25 19:32 Objective Labs 06/28/25 04:55 06/28/25 04:55 Labs: Laboratory Results - last 24 hr 06/27/25 06/28/25 21:03 04:55 WBC 10.2 RBC 3.02 L Hgb 7.4 L Hct 24.7 L MCV 82 MCH 24.5 L MCHC 30.0 L RDW Std Deviation 48.1 H Plt Count 459 H Neut % (Auto) 75 Lymph % (Auto) 15 [place] % (Auto) 6 Eos % (Auto) 1 Baso % (Auto) 1 Neut # (Auto) 7.7 Lymph # (Auto) 1.6 [place] # (Auto) 0.6 Eos # (Auto) 0.1 Baso # (Auto) 0.1 Immature Gran # (Auto) 0.21 H Absolute Nucleated RBC 0.00 Immature Gran % 2 H Nucleated RBC % 0 Sodium 143 Potassium 3.4 Chloride 106 Carbon Dioxide 26.6 Anion Gap 10 BUN < 5 L Creatinine 0.5 L Estim Creat Clear Calc 128.2 eGFR > 60 BUN/Creatinine Ratio 10 L Glucose 92 Calculated Osmolality 282 Calcium 8.1 L Corrected Calcium 9.0 Phosphorus 5.2 H Magnesium 2.2 Total Bilirubin 0.3 AST 10 ALT < 7 L Alkaline Phosphatase 66 D Total Protein 5.6 L Albumin 2.9 L D Globulin 2.7 Albumin/Globulin Ratio 1.1 L Vancomycin Trough 4.3 L Impressions Impression: 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
[2025-06-28 20:00] VITALS: BP 105/71; PULSE 98; RESP 17; TEMP 36.7; O2SAT 99
[2025-06-29] VITALS: BP 99/65; PULSE 91; RESP 17; TEMP 36.9; O2SAT 98
[2025-06-29 04:00] VITALS: BP 102/70; PULSE 90; RESP 17; TEMP 36.4; O2SAT 97
[2025-06-29] MEDS: PIPER/TAZO INJ 4.5 GM in SODIUM CHLORIDE 0.9% (POP) 100 ML IV ×3 (05:16→21:01)
[2025-06-29] MEDS: HEPARIN SOD INJ 5000 UNIT/ML VIAL SC ×3 (05:19→21:11)
[2025-06-29 05:54] LABS: Basophils # (Auto) 0.1 Thou/mm3 (0.0-0.2); Basophils % (Auto) 1 % (0-2.5); Eosinophils # (Auto) 0.2 Thou/mm3 (0.0-0.5); Eosinophils % (Auto) 2 % (0-10); Hematocrit 25.4 % (36.0-46.0); Immature Granulocytes Auto 0.32 Thou/mm3 (0.00-0.00); Lymphocytes # (Auto) 1.8 Thou/mm3 (1.0-4.8); Lymphocytes % (Auto) 18 % (10-50); Mean Corpuscular HGB Conc 29.5 g/dl (31.0-37.0); Mean Corpuscular Hemoglobin 24.4 pg (25.0-35.0); Mean Corpuscular Volume 83 fL (80-100); Monocytes # (Auto) 0.5 Thou/mm3 (0.0-0.8); Monocytes % (Auto) 5 % (0-12); Neutrophils # (Auto) 7.1 Thou/mm3 (1.8-7.7); Neutrophils % (Auto) 71 % (37-80); Nucleated Red Blood Cell # 0.02 Thou/mm3 (0.00-0.00); Nucleated Red Blood Cell % 0 /100 WBC (0); Platelet Count 467 Thou/mm3 (140-440); RDW Standard Deviation 48.3 fL (36.4-46.3); Red Blood Count 3.08 Miln/mm3 (4.00-5.20); White Blood Count 10.0 Thou/mm3 (3.6-11.0)
[2025-06-29 06:07] LABS: Hemoglobin 7.5 g/dL (12.0-16.0)
[2025-06-29 06:38] LABS: Alanine Aminotransferase < 7 U/L (10-49); Albumin, Serum 3.0 gm/dL (3.5-5.0); Albumin/Globulin Ratio 1.1 (1.2-2.2); Alkaline Phosphatase 65 U/L (46-116); Anion Gap 10 (7-16); Aspartate Amino Transferase 12 U/L (0-34); BUN/Creatinine Ratio 13 Ratio (12-20); Bilirubin,Total 0.2 mg/dL (0.3-1.2); Blood Urea Nitrogen 8 mg/dL (9-23); Calcium 8.1 mg/dL (8.3-10.6); Calcium (Corrected) 8.9 mg/dL (8.5-10.1); Carbon Dioxide 25.7 mMol/L (20.0-31.0); Chloride 107 mMol/L (98-107); Creatinine (Component) 0.6 mg/dL (0.6-1.3); Estimated Creatinine Clearance 106.8 mL/min (>60); Globulin 2.7 gm/dL (2.3-3.5); Glucose 111 mg/dL (74-106); Magnesium 2.2 mg/dL (1.6-2.6); Osmolality,Calculated 284 (275-295); Phosphorous 4.1 mg/dL (2.4-5.1); Potassium 3.5 mMol/L (3.4-5.1); Sodium 143 mMol/L (136-145); Total Protein 5.7 gm/dL (5.7-8.2); eGFR > 60 See Note
[2025-06-29 07:44] VITALS: BP 127/77; PULSE 89; RESP 18; TEMP 36.1; O2SAT 94
[2025-06-29] MEDS: MULTIVITAMINS TABLET 1 TAB PO (08:45)
[2025-06-29] MEDS: ASCORBIC ACID 250 MG TABLET 500 MG PO ×2 (08:45→20:59)
[2025-06-29] MEDS: ZINC SULFATE 220 MG CAPSULE PO (08:45)
[2025-06-29 11:58] VITALS: BP 119/80; PULSE 89; RESP 18; TEMP 36.1; O2SAT 98
--- NOTE | 2025-06-29 12:30 | PD.IMPROG ---
Documentation for date of: 06/29/25 Subjective Subjective Interval history: Patient evaluated Quite a bit of drainage into the colostomy bag Patient would be better off having a surgical intervention while in the hospital because it will be difficult to manage the bag at home Exam Vital Signs Temp Pulse Resp BP Pulse Ox O2 Del Method O2 Flow Rate 96.9 F 89 18 119/80 98 Room Air 3 06/29/25 11:58 06/29/25 11:58 06/29/25 11:58 06/29/25 11:58 06/29/25 11:58 06/29/25 04:00 06/27/25 19:32 Objective Labs 06/29/25 05:10 06/29/25 05:10 Labs: Laboratory Results - last 24 hr 06/29/25 05:10 WBC 10.0 RBC 3.08 L Hgb 7.5 L Hct 25.4 L MCV 83 MCH 24.4 L MCHC 29.5 L RDW Std Deviation 48.3 H Plt Count 467 H Neut % (Auto) 71 Lymph % (Auto) 18 [place] % (Auto) 5 Eos % (Auto) 2 Baso % (Auto) 1 Neut # (Auto) 7.1 Lymph # (Auto) 1.8 [place] # (Auto) 0.5 Eos # (Auto) 0.2 Baso # (Auto) 0.1 Immature Gran # (Auto) 0.32 H Absolute Nucleated RBC 0.02 H Immature Gran % 3 H Nucleated RBC % 0 Sodium 143 Potassium 3.5 Chloride 107 Carbon Dioxide 25.7 Anion Gap 10 BUN 8 L Creatinine 0.6 Estim Creat Clear Calc 106.8 eGFR > 60 BUN/Creatinine Ratio 13 Glucose 111 H Calculated Osmolality 284 Calcium 8.1 L Corrected Calcium 8.9 Phosphorus 4.1 Magnesium 2.2 Total Bilirubin 0.2 L AST 12 ALT < 7 L Alkaline Phosphatase 65 Total Protein 5.7 Albumin 3.0 L Globulin 2.7 Albumin/Globulin Ratio 1.1 L Impressions Impression: Large obstructing circumferential tumor at 45 cm from the anal verge Recommend surgical intervention Assessment & Plan Time Spent With Patient Time: Total time spent is greater than 50% in coordination of care (as documented) at patient's floor/unit and/or counseling patient:
--- NOTE | 2025-06-29 15:30 | PD.HHPROG ---
Documentation for date of: 06/29/25 Subjective - Hospitalist Subjective Interval history: Patient seen at bedside. No acute overnight events. She reports her abdominal pain is currently controlled. She had 100 cc fluid output in colostomy bag in the last 24 hours. Discussed with patient that she will remain hospitalized pending surgical intervention for obstructing colonic mass. Patient in agreement. She endorses mild nausea. Patient denies headache, chest pain, shortness of breath, and no urinary symptoms at this time. Afebrile. Pulse 89 and blood pressure 119/80. Review of Systems Review of Systems Systems Reviewed: All systems reviewed, normal except as documented Exam Vital Signs Temp Pulse Resp BP Pulse Ox O2 Del Method O2 Flow Rate 96.9 F 89 18 119/80 98 Room Air 3 06/29/25 11:58 06/29/25 11:58 06/29/25 11:58 06/29/25 11:58 06/29/25 11:58 06/29/25 04:00 06/27/25 19:32 Narrative General: No acute distress Eye: PERRL, EOMI HENT: Normocephalic, atraumatic, moist oral mucosa Neck: Supple, non-tender Lungs: Clear to auscultation bilaterally, non-labored respirations, symmetric chest rise Heart: Normal S1 and S2, no S3 or S4 appreciated. Normal rate and regular rhythm, no murmurs, rubs gallops Abdomen: Soft, non-tender, non-distended, normal bowel sounds. No guarding or rebound tenderness. Skin: Two open lesions (LLQ and left suprapubic) draining serosanguinous fluid Neurologic: Alert, awake and oriented x3. CN II-XII grossly intact. Psychiatric: Cooperative, appropriate mood and affect Objective - Hospitalist Labs Diagram: 06/29/25 05:10 06/29/25 05:10 Labs: Laboratory Results - last 24 hr 06/29/25 05:10 WBC 10.0 RBC 3.08 L Hgb 7.5 L Hct 25.4 L MCV 83 MCH 24.4 L MCHC 29.5 L RDW Std Deviation 48.3 H Plt Count 467 H Neut % (Auto) 71 Lymph % (Auto) 18 [place] % (Auto) 5 Eos % (Auto) 2 Baso % (Auto) 1 Neut # (Auto) 7.1 Lymph # (Auto) 1.8 [place] # (Auto) 0.5 Eos # (Auto) 0.2 Baso # (Auto) 0.1 Immature Gran # (Auto) 0.32 H Absolute Nucleated RBC 0.02 H Immature Gran % 3 H Nucleated RBC % 0 Sodium 143 Potassium 3.5 Chloride 107 Carbon Dioxide 25.7 Anion Gap 10 BUN 8 L Creatinine 0.6 Estim Creat Clear Calc 106.8 eGFR > 60 BUN/Creatinine Ratio 13 Glucose 111 H Calculated Osmolality 284 Calcium 8.1 L Corrected Calcium 8.9 Phosphorus 4.1 Magnesium 2.2 Total Bilirubin 0.2 L AST 12 ALT < 7 L Alkaline Phosphatase 65 Total Protein 5.7 Albumin 3.0 L Globulin 2.7 Albumin/Globulin Ratio 1.1 L Assessment & Plan Assessment: Patient is a 55 year old female with a medical history of diverticulosis with peridiverticular abscess requiring percutaneous drainage on 02/03 who presented to [facility] on 06/25/25 with chief complaint of worsening serosanguinous drainage of LLQ and left suprapubic abscesses. Admitted for peridiverticular abscesses. #Acute Sigmoid diverticulitis #Sigmoid Mass #Enterocutaneous Fistula CT a/p showed acute diverticulitis sigmoid colon, enlarging abscess tumor mass extending from sigmoid colon through the pelvic wall into the subcutaneous fatty tissue with more prominent fluid densities and air densities. - Ok with colostomy bag to measure 24 hour output. - IV Vancomycin daily and IV Zosyn 4.5 mg q6h - Referral wound care - GI consulted recs appreciated - Wound healing vitamins initiated - Plan: 100 cc output in colostomy bag in the last 24 hours which is quite stable. Patient underwent colonoscopy on 06/28 which revealed a ulcerated completely obstructing large sigmoid mass. Biopsies were taken. The mass is at 45 cm from the point of entry of the anal verge. Completely obstructing. Findings are concerning for malignancy. CEA within normal limits. Case discussed with general surgery who reports likely surgical intervention on Tuesday07/02/25. Continue diet and pain management as needed. Follow-up biopsy results. Wound culture grew E. coli and continue IV antibiotic. Blood culture showed no growth at 48 hours. #Chronic normocytic anemia Hgb 9, HCT 29.6 On previous admission: Fe 20, TIBC 498, Fe Sat 4, Ferritin 142. Most likely anemia of chronic disease Plan: Hemoglobin continues to downtrend and is 7.4 today. Will transfuse for hemoglobin less than 7. Most likely anemia of chronic disease #Left renal calculus 4 mm, asymptomatic Incidental finding on CT a/p: Severe left renal scarring, 4 mm left renal calculus, no hydronephrosis or ureteral calculi. BUN and Cr WNL. eGFR >60 Plan: Follow-up outpatient. No intervention needed at this time. Patient encouraged to stay hydrated. #Endometrial mass 35 mm Incidental finding on CT a/p: Subtle endometrial uterine mass 36 mm. Plan: Follow-up outpatient for further workup and management Diet: Cardiac VTE ppx: heparin subQ GI ppx: n/a Pain mgmt: Tylenol PRN Code status: full Dispo: Admitted to [facility] for acute diverticulitis and found to have colonic mass, pending surgical intervention. Dr. Eduarda MD Time Spent with Patient Time: Total time spent is greater than 50% in coordination of care (as documented) at patient's floor/unit and/or counseling patient: Time with patient: Greater than 35 minutes Reason for Continued Stay Reason for continued stay: IV antibiotics and surgical intervention Quality Measures Quality Measures VTE prophylaxis
[2025-06-29 16:00] VITALS: BP 115/78; PULSE 98; RESP 19; TEMP 36.4; O2SAT 96
[2025-06-29 20:00] VITALS: BP 106/68; PULSE 88; RESP 16; TEMP 36.4; O2SAT 98
[2025-06-30] VITALS: BP 104/66; PULSE 86; RESP 18; TEMP 36.7; O2SAT 98
[2025-06-30 04:00] VITALS: BP 106/71; PULSE 87; RESP 16; TEMP 36.7; O2SAT 96
[2025-06-30] MEDS: PIPER/TAZO INJ 4.5 GM in SODIUM CHLORIDE 0.9% (POP) 100 ML IV ×3 (05:36→21:13)
[2025-06-30] MEDS: HEPARIN SOD INJ 5000 UNIT/ML VIAL SC ×3 (05:38→21:17)
[2025-06-30 05:59] LABS: Basophils # (Auto) 0.0 Thou/mm3 (0.0-0.2); Basophils % (Auto) 0 % (0-2.5); Eosinophils # (Auto) 0.2 Thou/mm3 (0.0-0.5); Eosinophils % (Auto) 2 % (0-10); Hematocrit 24.7 % (36.0-46.0); Immature Granulocytes Auto 0.35 Thou/mm3 (0.00-0.00); Lymphocytes # (Auto) 1.6 Thou/mm3 (1.0-4.8); Lymphocytes % (Auto) 18 % (10-50); Mean Corpuscular HGB Conc 30.4 g/dl (31.0-37.0); Mean Corpuscular Hemoglobin 25.2 pg (25.0-35.0); Mean Corpuscular Volume 83 fL (80-100); Monocytes # (Auto) 0.5 Thou/mm3 (0.0-0.8); Monocytes % (Auto) 6 % (0-12); Neutrophils # (Auto) 6.2 Thou/mm3 (1.8-7.7); Neutrophils % (Auto) 70 % (37-80); Nucleated Red Blood Cell # 0.00 Thou/mm3 (0.00-0.00); Nucleated Red Blood Cell % 0 /100 WBC (0); Platelet Count 443 Thou/mm3 (140-440); RDW Standard Deviation 49.0 fL (36.4-46.3); Red Blood Count 2.98 Miln/mm3 (4.00-5.20); White Blood Count 8.8 Thou/mm3 (3.6-11.0)
[2025-06-30 06:03] LABS: Hemoglobin 7.5 g/dL (12.0-16.0)
[2025-06-30 06:45] LABS: Alanine Aminotransferase < 7 U/L (10-49); Albumin, Serum 3.0 gm/dL (3.5-5.0); Albumin/Globulin Ratio 1.1 (1.2-2.2); Alkaline Phosphatase 61 U/L (46-116); Anion Gap 9 (7-16); Aspartate Amino Transferase 14 U/L (0-34); BUN/Creatinine Ratio 22 Ratio (12-20); Bilirubin,Total 0.2 mg/dL (0.3-1.2); Blood Urea Nitrogen 11 mg/dL (9-23); Calcium 8.4 mg/dL (8.3-10.6); Calcium (Corrected) 9.2 mg/dL (8.5-10.1); Carbon Dioxide 25.6 mMol/L (20.0-31.0); Chloride 108 mMol/L (98-107); Creatinine (Component) 0.5 mg/dL (0.6-1.3); Estimated Creatinine Clearance 128.2 mL/min (>60); Globulin 2.7 gm/dL (2.3-3.5); Glucose 109 mg/dL (74-106); Magnesium 2.3 mg/dL (1.6-2.6); Osmolality,Calculated 285 (275-295); Phosphorous 3.5 mg/dL (2.4-5.1); Potassium 3.7 mMol/L (3.4-5.1); Sodium 143 mMol/L (136-145); Total Protein 5.7 gm/dL (5.7-8.2); eGFR > 60 See Note
[2025-06-30 08:00] VITALS: BP 94/70; PULSE 90; RESP 19; TEMP 36.2; O2SAT 97
[2025-06-30] MEDS: ASCORBIC ACID 250 MG TABLET 500 MG PO ×2 (08:07→20:06)
[2025-06-30] MEDS: MULTIVITAMINS TABLET 1 TAB PO (08:07)
[2025-06-30] MEDS: ZINC SULFATE 220 MG CAPSULE PO (08:07)
--- NOTE | 2025-06-30 09:29 | ESPR_ITS ---
<Statement entered by Chad Sharpe MD - 07/01/25 13:00> I saw and examined patient personally and supervised PGY 1 resident, Dr. York with formulating a management plan. I agree with the documentation with the exceptions as listed below. Patient is currently pending surgical intervention for sigmoid mass found on colonoscopy. also continues to be on treatment with Zosyn IV for diverticulitis. 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 Plan of care discussed with Attending Dr. Eduarda Sharpe MD PGY 2 Disclaimer: This note was dictated by speech recognition. Minor errors in weatherization technician may be present due to voice recognition software. Documentation for date of: 06/30/25 Subjective Subjective Interval history: Patient examined bedside, labs reviewed. Patient has no complaints is agreeable to surgery on tuesday with general surgery. Colonoscopy results already reviewed. Exam Vital Signs Temp Pulse Resp BP Pulse Ox O2 Del Method O2 Flow Rate 97.2 F 90 19 94/70 97 Room Air 3 06/30/25 08:00 06/30/25 08:00 06/30/25 08:00 06/30/25 08:00 06/30/25 08:00 06/30/25 08:00 06/27/25 19:32 Narrative Exam General: No acute distress, well nourished Eye: PERRL, EOMI, normal conjunctiva, no scleral icterus HENT: Normocephalic, atraumatic, normal hearing, moist oral mucosa Neck: Supple, non-tender, no JVD, no lymphadenopathy Lungs: Clear to auscultation bilaterally, non-labored respirations, symmetric chest rise, no use of accessory muscles Heart: Normal S1 and S2, no S3 or S4 appreciated. Normal rate and regular rhythm, no murmurs, rubs gallops, or edema. Peripheral pulses intact bilaterally, capillary refill brisk distally Abdomen: Soft, non-tender, non-distended, normal bowel sounds. No guarding or rebound tenderness. Musculoskeletal: Normal range of motion and strength, no tenderness or swelling Skin: Two open lesions (LLQ and left suprapubic) draining serosanguinous fluid, the inguinal site had purulent material expressed from it, while the top drainage site had serosanguinous fluid expressed, foul odor, surrounding warmth, pink granulation tissue, edema, appropriately TTP. Vinegar fluid from drainage site Neurologic: Alert, awake and oriented x3. CN II-XII grossly intact. No focal neuro deficits. No signs of meningeal irritation noted. Psychiatric: Cooperative, appropriate mood and affect Objective Labs 07/01/25 04:50 07/01/25 04:50 Labs: Laboratory Results - last 24 hr 06/30/25 04:59 WBC 8.8 RBC 2.98 L Hgb 7.5 L Hct 24.7 L MCV 83 MCH 25.2 MCHC 30.4 L RDW Std Deviation 49.0 H Plt Count 443 H Neut % (Auto) 70 Lymph % (Auto) 18 [place] % (Auto) 6 Eos % (Auto) 2 Baso % (Auto) 0 Neut # (Auto) 6.2 Lymph # (Auto) 1.6 [place] # (Auto) 0.5 Eos # (Auto) 0.2 Baso # (Auto) 0.0 Immature Gran # (Auto) 0.35 H Absolute Nucleated RBC 0.00 Immature Gran % 4 H Nucleated RBC % 0 Sodium 143 Potassium 3.7 Chloride 108 H Carbon Dioxide 25.6 Anion Gap 9 BUN 11 Creatinine 0.5 L Estim Creat Clear Calc 128.2 eGFR > 60 BUN/Creatinine Ratio 22 H Glucose 109 H Calculated Osmolality 285 Calcium 8.4 Corrected Calcium 9.2 Phosphorus 3.5 Magnesium 2.3 Total Bilirubin 0.2 L AST 14 ALT < 7 L Alkaline Phosphatase 61 Total Protein 5.7 Albumin 3.0 L Globulin 2.7 Albumin/Globulin Ratio 1.1 L Quality Measures Quality Measures VTE prophylaxis Assessment & Plan Assessment Current Active Medications: Generic Name Dose Route Start Last Admin Trade Name Luzmaria PRN Reason Stop Dose Admin Acetaminophen 650 mg 06/26/25 00:00 Acetaminophen 325 Mg Tablet PO 07/26/25 00:00 Q6H PRN Fever >100.3 Acetaminophen 650 mg 06/26/25 00:00 Acetaminophen 325 Mg Tablet PO 07/26/25 00:00 Q6H PRN PAIN SCALE 1-3 (mild Ascorbic Acid 500 mg 06/26/25 09:15 06/30/25 08:07 Ascorbic Acid 250 Mg Tablet PO 07/26/25 09:14 500 mg BID BRIANNA Administration Heparin Sodium (Porcine) 5,000 unit 06/26/25 06:00 06/30/25 05:38 Heparin Sod Inj 5000 Unit/Ml Vial SC 07/10/25 05:59 5,000 unit Q8HR BRIANNA Administration Piperacillin Sod/Tazobactam 100 mls @ 200 mls/hr 06/26/25 10:00 06/30/25 05:36 Sod 4.5 gm/ Sodium Chloride IV 07/03/25 09:59 200 mls/hr Q8HR BRIANNA Administration Protocol Potassium Chloride 10 meq in 100 mls @ 100 mls/hr 06/30/25 07:56 Kcl Ivpb IV 06/30/25 11:55 Q1H BRIANNA Multivitamins 1 tab 06/26/25 09:15 06/30/25 08:07 Multivitamins Tablet PO 07/26/25 09:14 1 tab QDAY BRIANNA Administration Ondansetron HCl 4 mg 06/26/25 00:00 06/26/25 11:02 Ondansetron Inj 2 Mg/Ml Inj 2 Ml IVP 07/26/25 00:00 4 mg Q6H PRN Administration NAUSEA OR VOMITING Protocol Zinc Sulfate 220 mg 06/26/25 09:15 06/30/25 08:07 Zinc Sulfate 220 Mg Capsule PO 07/26/25 09:14 220 mg QDAY BRIANNA Administration Plan Ms. Jackson is a 55 y/o female with PMH diverticulosis with peridiverticular abscess requiring percutaneous drainage in 02/03 who presented to ED 06/25 worsening serosanguinous drainage of LLQ and left suprapubic abscesses. Admitted for peridiverticular abscesses. Patient has not noticed any blood in stool or fecal matter in her urine, or any changes to her urination as well as no foul smelling vaginal excretions or changes in menstruation. Plan for surgery on Tuesday when Dr. palomares returns for resection of large sigmoid colonic mass. #Sigmoid diverticulitis complicated by #Peridiverticular abscesses #& Enterocutaneous Fistula Several days of diarrhea, no melena/hematochezia/hematemesis. No abdominal TTP. Was seeing Dr. Ramirez outpatient, planned for CXR for possible mets detection and colonoscopy. Two abscesses draining foul-smelling serosanguinous fluid, surrounding warmth, erythema, edema, TTP. Previous wound culture grew E coli, managed with IV Zosyn, afebrile, leukocytosis leukocytosis WBC 21.5. Lactic acid WNL. CT a/p showed acute diverticulitis sigmoid colon, enlarging abscess tumor mass extending from sigmoid colon through the pelvic wall into the subcutaneous fatty tissue with more prominent fluid densities and air densities. GI consulted to rule out tumor mass vs IBD. Plan: - Consulted general surgery, Dr. Ramirez: If there is no intracolonic mass then IR biopsy may be warranted for clarifying the etiology of this mass. Depending upon these findings pt could require sigmoidectomy which would likely require fecal diversion either by colostomy or loop ileostomy. - Ok with colostomy bag to measure 24 hour output. - Bag output: x2 bag over 12 hours 06/27 - IV Vancomycin daily (06/25 - 06/26) - IV Zosyn 4.5 mg q6h (06/26- - Referral wound care - Wound healing vitamins initiated - GI consulted recs appreciated: Patient underwent colonoscopy on 06/28 which revealed a ulcerated completely obstructing large sigmoid mass. Biopsies were taken. The mass is at 45 cm from the point of entry of the anal verge. Completely obstructing. Findings are concerning for malignancy. CEA within normal limits. Case discussed with general surgery who reports likely surgical intervention on Tuesday07/02/25. Continue diet and pain management as needed. Follow-up biopsy results. Wound culture grew E. coli and continue IV antibiotic. Blood culture showed no growth at 48 hours. #Leukocytosis - resolved WBC 21.5 --> 14.9. no signs of UTI Plan: - Abscess management as above - CTM with daily CBC - Urine cx: possible contmaination #Chronic normocytic anemia - stable Hgb 9, HCT 29.6 On previous admission: Fe 20, TIBC 498, Fe Sat 4, Ferritin 142. Most likely anemia of chronic disease Plan: - CTM with daily CBC #Thrombocytosis most likely reactive plt 495 Plan: - Abscess management as above - CTM with daily CBC #Hyponatremia - resolved #Hypochloremia - resolved Mild. Na 135, Cl 97 Plan: - CTM with daily BMP #Severe left renal scarring #Left renal calculus 4 mm, asymptomatic Incidental finding on CT a/p: Severe left renal scarring, 4 mm left renal calculus, no hydronephrosis or ureteral calculi. BUN and Cr WNL. eGFR >60 Plan: - CTM for symptoms #Endometrial mass 35 mm Incidental finding on CT a/p: Subtle endometrial uterine mass 36 mm. Plan: - CTM for symptoms Checklist Dispo: Admit to med surg, pending gen surg consult Diet: CLD in anticipation of possible surgical procedure Bowel Reg: n/a VTE ppx: heparin subQ GI ppx: n/a Pain mgmt: Tylenol PRN Code status: full Plan discussed with supervising resident Dr. Sharpe and attending Dr. Eduarda York MD PGY1 Attending Provider Attestation/Addendum I have examined the patient, reviewed labs and imaging findings, discussed the case with the resident(s), and reviewed entered orders. I agree with the plan of care as outlined in this note, with these additional summaries/recommendations: Patient seen at bedside. No acute overnight events. She has no new complaints at this time. Patient was admitted for sigmoid diverticulitis and started on IV antibiotics which were continued. She was found to have fistulas. She underwent colonoscopy that revealed a ulcerated completely obstructing large sigmoid mass. She is pending surgical intervention on Tuesday. In-house general surgery following. Continue pain management. Leukocytosis improving. Anemia persists. Outpatient follow-up for endometrial mass. Continue pain management. Dietary following. Patient updated on the plan and in agreement. All questions answered to satisfaction. Please see residents note for additional details and management. Dr. Eduarda MD
[2025-06-30] MEDS: POTASSIUM CHL 10 mEq IVPB 10 MEQ/100 ML BAG 100 MEQ IV ×3 (11:09→16:40)
[2025-06-30 11:34] VITALS: BP 113/74; PULSE 95; RESP 18; TEMP 36.3; O2SAT 99
--- NOTE | 2025-06-30 14:52 | PC.SS ---
Rounding note: ready for d/c.
--- NOTE | 2025-06-30 14:59 | PC.SS ---
Rounding note: pending surgery on Tuesday.
[2025-06-30 16:00] VITALS: BP 117/63; PULSE 91; RESP 19; TEMP 36.3; O2SAT 98
--- NOTE | 2025-06-30 18:22 | ESPR_ITS ---
Documentation for date of: 06/30/25 Subjective Subjective Interval history: Doing okay Waiting for surgical intervention Exam Vital Signs Temp Pulse Resp BP Pulse Ox O2 Del Method O2 Flow Rate 97.4 F 91 19 117/63 98 Room Air 3 06/30/25 16:00 06/30/25 16:00 06/30/25 16:00 06/30/25 16:00 06/30/25 16:00 06/30/25 16:00 06/27/25 19:32 Objective Labs 06/30/25 04:59 06/30/25 04:59 Labs: Laboratory Results - last 24 hr 06/30/25 04:59 WBC 8.8 RBC 2.98 L Hgb 7.5 L Hct 24.7 L MCV 83 MCH 25.2 MCHC 30.4 L RDW Std Deviation 49.0 H Plt Count 443 H Neut % (Auto) 70 Lymph % (Auto) 18 [place] % (Auto) 6 Eos % (Auto) 2 Baso % (Auto) 0 Neut # (Auto) 6.2 Lymph # (Auto) 1.6 [place] # (Auto) 0.5 Eos # (Auto) 0.2 Baso # (Auto) 0.0 Immature Gran # (Auto) 0.35 H Absolute Nucleated RBC 0.00 Immature Gran % 4 H Nucleated RBC % 0 Sodium 143 Potassium 3.7 Chloride 108 H Carbon Dioxide 25.6 Anion Gap 9 BUN 11 Creatinine 0.5 L Estim Creat Clear Calc 128.2 eGFR > 60 BUN/Creatinine Ratio 22 H Glucose 109 H Calculated Osmolality 285 Calcium 8.4 Corrected Calcium 9.2 Phosphorus 3.5 Magnesium 2.3 Total Bilirubin 0.2 L AST 14 ALT < 7 L Alkaline Phosphatase 61 Total Protein 5.7 Albumin 3.0 L Globulin 2.7 Albumin/Globulin Ratio 1.1 L Impressions Impression: Obstructing mass left colon at 45 cm from the anal verge with colocutaneous fistula Continue IV antibiotics Assessment & Plan Time Spent With Patient Time: Total time spent is greater than 50% in coordination of care (as documented) at patient's floor/unit and/or counseling patient:
[2025-06-30 20:00] VITALS: BP 111/69; PULSE 92; RESP 18; TEMP 36.7; O2SAT 98
[2025-06-30 20:01] LABS: Anion Gap 10 (7-16); BUN/Creatinine Ratio 12 Ratio (12-20); Blood Urea Nitrogen 7 mg/dL (9-23); Calcium 8.3 mg/dL (8.3-10.6); Carbon Dioxide 24.1 mMol/L (20.0-31.0); Chloride 107 mMol/L (98-107); Creatinine (Component) 0.6 mg/dL (0.6-1.3); Estimated Creatinine Clearance 106.8 mL/min (>60); Glucose 141 mg/dL (74-106); Osmolality,Calculated 281 (275-295); Potassium 4.2 mMol/L (3.4-5.1); Sodium 141 mMol/L (136-145); eGFR > 60 See Note
[2025-07-01] VITALS: BP 113/71; PULSE 88; RESP 18; TEMP 36.4; O2SAT 97
[2025-07-01 04:00] VITALS: BP 114/74; PULSE 85; RESP 17; TEMP 36.6; O2SAT 98
[2025-07-01] MEDS: PIPER/TAZO INJ 4.5 GM in SODIUM CHLORIDE 0.9% (POP) 100 ML IV ×2 (05:30→14:08)
[2025-07-01] MEDS: HEPARIN SOD INJ 5000 UNIT/ML VIAL SC ×3 (05:32→23:21)
[2025-07-01 06:29] LABS: Basophils # (Auto) 0.1 Thou/mm3 (0.0-0.2); Basophils % (Auto) 1 % (0-2.5); Eosinophils # (Auto) 0.2 Thou/mm3 (0.0-0.5); Eosinophils % (Auto) 2 % (0-10); Hematocrit 26.7 % (36.0-46.0); Immature Granulocytes Auto 0.43 Thou/mm3 (0.00-0.00); Lymphocytes # (Auto) 1.8 Thou/mm3 (1.0-4.8); Lymphocytes % (Auto) 21 % (10-50); Mean Corpuscular HGB Conc 28.8 g/dl (31.0-37.0); Mean Corpuscular Hemoglobin 24.8 pg (25.0-35.0); Mean Corpuscular Volume 86 fL (80-100); Monocytes # (Auto) 0.5 Thou/mm3 (0.0-0.8); Monocytes % (Auto) 6 % (0-12); Neutrophils # (Auto) 5.7 Thou/mm3 (1.8-7.7); Neutrophils % (Auto) 65 % (37-80); Nucleated Red Blood Cell # 0.02 Thou/mm3 (0.00-0.00); Nucleated Red Blood Cell % 0 /100 WBC (0); Platelet Count 416 Thou/mm3 (140-440); RDW Standard Deviation 51.1 fL (36.4-46.3); Red Blood Count 3.11 Miln/mm3 (4.00-5.20); White Blood Count 8.8 Thou/mm3 (3.6-11.0)
[2025-07-01 06:37] LABS: Hemoglobin 7.7 g/dL (12.0-16.0)
[2025-07-01 06:43] LABS: Alanine Aminotransferase 8 U/L (10-49); Albumin, Serum 3.4 gm/dL (3.5-5.0); Albumin/Globulin Ratio 1.1 (1.2-2.2); Alkaline Phosphatase 63 U/L (46-116); Anion Gap 10 (7-16); Aspartate Amino Transferase 18 U/L (0-34); BUN/Creatinine Ratio 12 Ratio (12-20); Bilirubin,Total 0.3 mg/dL (0.3-1.2); Blood Urea Nitrogen 7 mg/dL (9-23); Calcium 8.7 mg/dL (8.3-10.6); Calcium (Corrected) 9.2 mg/dL (8.5-10.1); Carbon Dioxide 25.5 mMol/L (20.0-31.0); Chloride 108 mMol/L (98-107); Creatinine (Component) 0.6 mg/dL (0.6-1.3); Estimated Creatinine Clearance 106.8 mL/min (>60); Globulin 3.0 gm/dL (2.3-3.5); Glucose 101 mg/dL (74-106); Magnesium 2.1 mg/dL (1.6-2.6); Osmolality,Calculated 282 (275-295); Phosphorous 3.7 mg/dL (2.4-5.1); Potassium 4.1 mMol/L (3.4-5.1); Sodium 143 mMol/L (136-145); Total Protein 6.4 gm/dL (5.7-8.2); eGFR > 60 See Note
--- NOTE | 2025-07-01 07:55 | ESPR_ITS ---
<Statement entered by Chad Sharpe MD - 07/01/25 19:43> I saw and examined patient personally and supervised PGY 1 resident, Dr. York with formulating a management plan. I agree with the documentation with the exceptions as listed below. 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 General surgeon, Dr. Ramirez says patient needs to be transferred to a tertiary care center for definitive surgical intervention. Currently pending her documentation before initiating transfer with transfer nurse. Plan of care discussed with Attending Dr. Eduarda Sharpe MD PGY 2 Disclaimer: This note was dictated by speech recognition. Minor errors in pin drafter operator may be present due to voice recognition software. Documentation for date of: 07/01/25 Subjective Subjective Interval history: Patient examined bedside, labs reviewed. Spoke with Dr. Ballesteros, she believes best choice will be to initiate transfer to tertiary center for oncology and urology due to concern that ureter may be involved. Patient has no complaints and is patiently waiting for surgery. GI Dr. Taylor confirms biopsy is invasive adenocarcinoma. Exam Vital Signs Temp Pulse Resp BP Pulse Ox O2 Del Method O2 Flow Rate 97.9 F 85 17 114/74 98 Room Air 3 07/01/25 04:00 07/01/25 04:00 07/01/25 04:00 07/01/25 04:00 07/01/25 04:00 07/01/25 04:00 06/27/25 19:32 Narrative Exam General: No acute distress, well nourished Eye: PERRL, EOMI, normal conjunctiva, no scleral icterus HENT: Normocephalic, atraumatic, normal hearing, moist oral mucosa Neck: Supple, non-tender, no JVD, no lymphadenopathy Lungs: Clear to auscultation bilaterally, non-labored respirations, symmetric chest rise, no use of accessory muscles Heart: Normal S1 and S2, no S3 or S4 appreciated. Normal rate and regular rhythm, no murmurs, rubs gallops, or edema. Peripheral pulses intact bilaterally, capillary refill brisk distally Abdomen: Soft, non-tender, non-distended, normal bowel sounds. No guarding or rebound tenderness. Musculoskeletal: Normal range of motion and strength, no tenderness or swelling Skin: Two open lesions (LLQ and left suprapubic) draining serosanguinous fluid, the inguinal site had purulent material expressed from it, while the top drainage site had serosanguinous fluid expressed, foul odor, surrounding warmth, pink granulation tissue, edema, appropriately TTP. Vinegar fluid from drainage site Neurologic: Alert, awake and oriented x3. CN II-XII grossly intact. No focal neuro deficits. No signs of meningeal irritation noted. Psychiatric: Cooperative, appropriate mood and affect Objective Labs 07/01/25 04:50 07/01/25 04:50 Labs: Laboratory Results - last 24 hr 06/30/25 07/01/25 19:32 04:50 WBC 8.8 RBC 3.11 L Hgb 7.7 L Hct 26.7 L MCV 86 MCH 24.8 L MCHC 28.8 L RDW Std Deviation 51.1 H Plt Count 416 Neut % (Auto) 65 Lymph % (Auto) 21 [place] % (Auto) 6 Eos % (Auto) 2 Baso % (Auto) 1 Neut # (Auto) 5.7 Lymph # (Auto) 1.8 [place] # (Auto) 0.5 Eos # (Auto) 0.2 Baso # (Auto) 0.1 Immature Gran # (Auto) 0.43 H Absolute Nucleated RBC 0.02 H Immature Gran % 5 H Nucleated RBC % 0 Sodium 141 143 Potassium 4.2 D 4.1 Chloride 107 108 H Carbon Dioxide 24.1 25.5 Anion Gap 10 10 BUN 7 L 7 L Creatinine 0.6 0.6 Estim Creat Clear Calc 106.8 106.8 eGFR > 60 > 60 BUN/Creatinine Ratio 12 12 Glucose 141 H 101 Calculated Osmolality 281 282 Calcium 8.3 8.7 Corrected Calcium 9.2 Phosphorus 3.7 Magnesium 2.1 Total Bilirubin 0.3 AST 18 ALT 8 L Alkaline Phosphatase 63 Total Protein 6.4 Albumin 3.4 L Globulin 3.0 Albumin/Globulin Ratio 1.1 L Quality Measures Quality Measures VTE prophylaxis Assessment & Plan Assessment Current Active Medications: Generic Name Dose Route Start Last Admin Trade Name Freq PRN Reason Stop Dose Admin Acetaminophen 650 mg 06/26/25 00:00 Acetaminophen 325 Mg Tablet PO 07/26/25 00:00 Q6H PRN Fever >100.3 Acetaminophen 650 mg 06/26/25 00:00 Acetaminophen 325 Mg Tablet PO 07/26/25 00:00 Q6H PRN PAIN SCALE 1-3 (mild Ascorbic Acid 500 mg 10/15/25 09:15 06/30/25 20:06 Ascorbic Acid 250 Mg Tablet PO 07/26/25 09:14 500 mg BID BRIANNA Administration Heparin Sodium (Porcine) 5,000 unit 06/26/25 06:00 07/01/25 05:32 Heparin Sod Inj 5000 Unit/Ml Vial SC 07/10/25 05:59 5,000 unit Q8HR BRIANNA Administration Piperacillin Sod/Tazobactam 100 mls @ 200 mls/hr 06/26/25 10:00 07/01/25 05:30 Sod 4.5 gm/ Sodium Chloride IV 07/03/25 09:59 200 mls/hr Q8HR BRIANNA Administration Protocol Multivitamins 1 tab 06/26/25 09:15 06/30/25 08:07 Multivitamins Tablet PO 07/26/25 09:14 1 tab QDAY BRIANNA Administration Ondansetron HCl 4 mg 06/26/25 00:00 06/26/25 11:02 Ondansetron Inj 2 Mg/Ml Inj 2 Ml IVP 07/26/25 00:00 4 mg Q6H PRN Administration NAUSEA OR VOMITING Protocol Zinc Sulfate 220 mg 06/26/25 09:15 06/30/25 08:07 Zinc Sulfate 220 Mg Capsule PO 07/26/25 09:14 220 mg QDAY BRIANNA Administration Plan Ms. Jackson is a 55 y/o female with PMH diverticulosis with peridiverticular abscess requiring percutaneous drainage in 02/03 who presented to ED 06/25 worsening serosanguinous drainage of LLQ and left suprapubic abscesses. Admitted for peridiverticular abscesses. Patient has not noticed any blood in stool or fecal matter in her urine, or any changes to her urination as well as no foul smelling vaginal excretions or changes in menstruation. Plan for surgery on Tuesday when Dr. Ballesteros returns for resection of large sigmoid colonic mass. Initiaiting transfer to tertiary center. #Sigmoid diverticulitis complicated by #Peridiverticular abscesses #& Enterocutaneous Fistula #Invasive Adenocarcinoma Several days of diarrhea, no melena/hematochezia/hematemesis. No abdominal TTP. Was seeing Dr. Ramirez outpatient, planned for CXR for possible mets detection and colonoscopy. Two abscesses draining foul-smelling serosanguinous fluid, surrounding warmth, erythema, edema, TTP. Previous wound culture grew E coli, managed with IV Zosyn, afebrile, leukocytosis leukocytosis WBC 21.5. Lactic acid WNL. CT a/p showed acute diverticulitis sigmoid colon, enlarging abscess tumor mass extending from sigmoid colon through the pelvic wall into the subcutaneous fatty tissue with more prominent fluid densities and air densities. GI consulted to rule out tumor mass vs IBD. Plan: - Consulted general surgery, Dr. Ramirez: If there is no intracolonic mass then IR biopsy may be warranted for clarifying the etiology of this mass. Depending upon these findings pt could require sigmoidectomy which would likely require fecal diversion either by colostomy or loop ileostomy. - Ok with colostomy bag to measure 24 hour output. - Bag output: minimal <20-0ml/day - IV Vancomycin daily (06/25 - 06/26) - IV Zosyn 4.5 mg q6h (06/26- - Referral wound care - Wound healing vitamins initiated - GI consulted recs appreciated: Patient underwent colonoscopy on 06/28 which revealed a ulcerated completely obstructing large sigmoid mass. Biopsies were taken. The mass is at 45 cm from the point of entry of the anal verge. Completely obstructing. Findings are concerning for malignancy. CEA within normal limits. Case discussed with general surgery who reports likely surgical intervention on Tuesday07/02/25. Continue diet and pain management as needed. Follow-up biopsy results. Wound culture grew E. coli and continue IV antibiotic. Blood culture showed no growth at 48 hours. -Dr. Taylor helping initiate transfer to tertiary center. Bx result is + invasive adenocarcinoma. #Leukocytosis - resolved WBC 21.5 --> 14.9. no signs of UTI Plan: - Abscess management as above - CTM with daily CBC - Urine cx: possible contmaination #Chronic normocytic anemia - stable Hgb 9, HCT 29.6 On previous admission: Fe 20, TIBC 498, Fe Sat 4, Ferritin 142. Most likely anemia of chronic disease Plan: - CTM with daily CBC #Thrombocytosis most likely reactive plt 495 Plan: - Abscess management as above - CTM with daily CBC #Hyponatremia - resolved #Hypochloremia - resolved Mild. Na 135, Cl 97 Plan: - CTM with daily BMP #Severe left renal scarring #Left renal calculus 4 mm, asymptomatic Incidental finding on CT a/p: Severe left renal scarring, 4 mm left renal calculus, no hydronephrosis or ureteral calculi. BUN and Cr WNL. eGFR >60 Plan: - CTM for symptoms #Endometrial mass 35 mm Incidental finding on CT a/p: Subtle endometrial uterine mass 36 mm. Plan: - CTM for symptoms Checklist Dispo: Admit to med surg, pending gen surg consult Diet: CLD in anticipation of possible surgical procedure Bowel Reg: n/a VTE ppx: heparin subQ GI ppx: n/a Pain mgmt: Tylenol PRN Code status: full Plan discussed with supervising resident Dr. Sharpe and attending Dr. Eduarda York MD PGY1 Attending Provider Attestation/Addendum I have examined the patient, reviewed labs and imaging findings, discussed the case with the resident(s), and reviewed entered orders. I agree with the plan of care as outlined in this note, with these additional summaries/recommendations: Patient seen at bedside. No acute overnight events. Biopsy results from obstructing sigmoid mass unfortunately resulted with invasive adenocarcinoma which is well-differentiated. MMR and IHCS's are pending. Findings were relayed to the patient and she showed understanding. Case discussed with general surgery who recommends patient would benefit from transfer to tertiary center given her malignant ulcerated completely obstructing sigmoid mass, diverticulitis, and enterocutaneous fistula. Transfer initiated. General surgery consulted and recommendations appreciated. Continue pain management. Anemia persist. Outpatient follow-up for endometrial mass. Continue pain management. Dietary following. Patient updated on the plan and in agreement. All questions answered to satisfaction. Please see residents note for additional details and management. Dr. Eduarda MD
[2025-07-01 08:00] VITALS: BP 106/73; PULSE 87; RESP 18; TEMP 36.9; O2SAT 98
[2025-07-01] MEDS: ZINC SULFATE 220 MG CAPSULE PO (08:11)
[2025-07-01] MEDS: MULTIVITAMINS TABLET 1 TAB PO (08:11)
[2025-07-01] MEDS: ASCORBIC ACID 250 MG TABLET 500 MG PO ×2 (08:11→20:57)
[2025-07-01 12:00] VITALS: BP 102/53; PULSE 94; RESP 18; TEMP 36.6; O2SAT 98
--- NOTE | 2025-07-01 13:46 | PC.SS ---
SS follow up note: Pending HLOC.
--- NOTE | 2025-07-01 15:19 | PC.CC ---
received call from Dr. Case requesting a transfer for Tertiary care for resection of mass. She states that Dr. Ramirez, Dr. Taylor, and Dr. Padilla have discussed this case that the patient needs to be transferred. No documentation from Dr. Ramirez, Dr. Taylor, or Dr. Padilla stating the the necessity for transfer. Informed the team during the multidisciplinary rounding. Dr. Lerner stated they will reach out to the specialists to enter notes what procedure and/or speciality is being requested. He will then enter the transfer order once they get details.
--- NOTE | 2025-07-01 15:57 | ESPR_ITS ---
Documentation for date of: 07/01/25 Subjective Subjective Interval history: I placed a phone call to [facility] waiting for the surgeon to call me back for the transfer [facility] for definitive surgical intervention Exam Vital Signs Temp Pulse Resp BP Pulse Ox O2 Del Method O2 Flow Rate 97.8 F 94 18 102/53 L 98 Room Air 3 07/01/25 12:00 07/01/25 12:00 07/01/25 12:00 07/01/25 12:00 07/01/25 12:00 07/01/25 12:00 06/27/25 19:32 Objective Labs 07/01/25 04:50 07/01/25 04:50 Labs: Laboratory Results - last 24 hr 06/30/25 07/01/25 19:32 04:50 WBC 8.8 RBC 3.11 L Hgb 7.7 L Hct 26.7 L MCV 86 MCH 24.8 L MCHC 28.8 L RDW Std Deviation 51.1 H Plt Count 416 Neut % (Auto) 65 Lymph % (Auto) 21 [place] % (Auto) 6 Eos % (Auto) 2 Baso % (Auto) 1 Neut # (Auto) 5.7 Lymph # (Auto) 1.8 [place] # (Auto) 0.5 Eos # (Auto) 0.2 Baso # (Auto) 0.1 Immature Gran # (Auto) 0.43 H Absolute Nucleated RBC 0.02 H Immature Gran % 5 H Nucleated RBC % 0 Sodium 141 143 Potassium 4.2 D 4.1 Chloride 107 108 H Carbon Dioxide 24.1 25.5 Anion Gap 10 10 BUN 7 L 7 L Creatinine 0.6 0.6 Estim Creat Clear Calc 106.8 106.8 eGFR > 60 > 60 BUN/Creatinine Ratio 12 12 Glucose 141 H 101 Calculated Osmolality 281 282 Calcium 8.3 8.7 Corrected Calcium 9.2 Phosphorus 3.7 Magnesium 2.1 Total Bilirubin 0.3 AST 18 ALT 8 L Alkaline Phosphatase 63 Total Protein 6.4 Albumin 3.4 L Globulin 3.0 Albumin/Globulin Ratio 1.1 L Impressions Impression: Obstructing invasive adenocarcinoma at 45 cm from the anal verge with colocutaneous fistula In the process of getting the patient transferred to [facility] Assessment & Plan Time Spent With Patient Time: Total time spent is greater than 50% in coordination of care (as documented) at patient's floor/unit and/or counseling patient:
[2025-07-01 16:00] VITALS: BP 127/90; PULSE 86; RESP 17; TEMP 36.2; O2SAT 97
[2025-07-01 20:00] VITALS: BP 106/67; PULSE 100; RESP 18; TEMP 36.5; O2SAT 98
[2025-07-02] VITALS: BP 110/72; PULSE 94; RESP 18; TEMP 36.1; O2SAT 97
[2025-07-02 03:56] VITALS: BP 108/72; PULSE 93; RESP 18; TEMP 36.4; O2SAT 98
[2025-07-02] MEDS: HEPARIN SOD INJ 5000 UNIT/ML VIAL SC ×3 (06:10→21:58)
--- NOTE | 2025-07-02 06:59 | PD.EVENT ---
Documentation for date of: 07/02/25 Event Note Event Note: Pt underwent colonoscopy with findings of circumferential mass at 45cm from the anal verge, yesterday biopsy confirmed invasive adenocarcinoma. Given that the tumor is invading the abdominal wall, I conferred with my colleague regarding the optimal surgical approach and we ultimately agreed to recommend transfer to a tertiary center for definitive care. If possible for pt to undergo evaluation by a surgical oncologist our hope is for the pt to have the best chance at an R0 resection while minimizing complications. She would also benefit from having a urologist available during the resection given the likelihood that her left ureter may be affected by the inflammation in the area
[2025-07-02 07:06] LABS: Basophils # (Auto) 0.1 Thou/mm3 (0.0-0.2); Basophils % (Auto) 1 % (0-2.5); Eosinophils # (Auto) 0.2 Thou/mm3 (0.0-0.5); Eosinophils % (Auto) 3 % (0-10); Hematocrit 28.6 % (36.0-46.0); Immature Granulocytes Auto 0.38 Thou/mm3 (0.00-0.00); Lymphocytes # (Auto) 1.7 Thou/mm3 (1.0-4.8); Lymphocytes % (Auto) 20 % (10-50); Mean Corpuscular HGB Conc 29.4 g/dl (31.0-37.0); Mean Corpuscular Hemoglobin 24.9 pg (25.0-35.0); Mean Corpuscular Volume 85 fL (80-100); Monocytes # (Auto) 0.5 Thou/mm3 (0.0-0.8); Monocytes % (Auto) 6 % (0-12); Neutrophils # (Auto) 5.5 Thou/mm3 (1.8-7.7); Neutrophils % (Auto) 66 % (37-80); Nucleated Red Blood Cell # 0.00 Thou/mm3 (0.00-0.00); Nucleated Red Blood Cell % 0 /100 WBC (0); Platelet Count 373 Thou/mm3 (140-440); RDW Standard Deviation 51.5 fL (36.4-46.3); Red Blood Count 3.38 Miln/mm3 (4.00-5.20); White Blood Count 8.4 Thou/mm3 (3.6-11.0)
[2025-07-02 07:18] LABS: Hemoglobin 8.4 g/dL (12.0-16.0)
[2025-07-02 07:26] LABS: Alanine Aminotransferase 17 U/L (10-49); Albumin, Serum 3.5 gm/dL (3.5-5.0); Albumin/Globulin Ratio 1.1 (1.2-2.2); Alkaline Phosphatase 68 U/L (46-116); Anion Gap 8 (7-16); Aspartate Amino Transferase 30 U/L (0-34); BUN/Creatinine Ratio 18 Ratio (12-20); Bilirubin,Total 0.3 mg/dL (0.3-1.2); Blood Urea Nitrogen 9 mg/dL (9-23); Calcium 8.9 mg/dL (8.3-10.6); Calcium (Corrected) 9.3 mg/dL (8.5-10.1); Carbon Dioxide 26.8 mMol/L (20.0-31.0); Chloride 107 mMol/L (98-107); Creatinine (Component) 0.5 mg/dL (0.6-1.3); Estimated Creatinine Clearance 128.2 mL/min (>60); Globulin 3.1 gm/dL (2.3-3.5); Glucose 104 mg/dL (74-106); Magnesium 2.2 mg/dL (1.6-2.6); Osmolality,Calculated 281 (275-295); Phosphorous 4.4 mg/dL (2.4-5.1); Potassium 4.2 mMol/L (3.4-5.1); Sodium 142 mMol/L (136-145); Total Protein 6.6 gm/dL (5.7-8.2); eGFR > 60 See Note
[2025-07-02 08:00] VITALS: BP 110/73; PULSE 106; RESP 17; TEMP 36.1; O2SAT 98
[2025-07-02] MEDS: MULTIVITAMINS TABLET 1 TAB PO (08:39)
[2025-07-02] MEDS: ASCORBIC ACID 250 MG TABLET 500 MG PO ×2 (08:39→21:58)
[2025-07-02] MEDS: ZINC SULFATE 220 MG CAPSULE PO (08:39)
--- NOTE | 2025-07-02 08:59 | PC.CM ---
Addendum entered by Kady Carrington RN 07/02/25 22:31: per Dr Matthew Taylor has spoken with Dr Ousmane Hager who is accepting the patient and looking for bed. Addendum entered by Adriane Rizo RN 07/02/25 19:11: I was unable to send images to [facility]. I spoke to the transfer and I let them know I will follow up with my packs staffing administrator tomorrow. Patient will need authorization for transfer. I will be back tomorrow to work on transfer. I started packet and I left it on transfer nurse desk. Addendum entered by Adriane Rizo RN 07/02/25 16:25: 1620 Dr. Negron called me back and he states they declined patient at [facility] due to capacity. They are at 105% capacity so they declined patient. 1615 I received a call from Dr. Negron stating he received a call from [facility] and he was not able to answer the phone. He asked me for the transfer center phone so he could call [facility]. 1530 I received a call from Shine at [facility]. He states he wants me to push over images. He states they packs. I let him know I have [facility] on [employer] so I will try to send images. Addendum entered by Adriane Rizo RN 07/02/25 12:50: 1215 I received a call back from Shine at the transfer center at [facility]. He states they have reached out to their doctor and they are still waiting for a call back. Addendum entered by Adriane Rizo RN 07/02/25 10:05: 0935 I called [facility] and initiated a transfer. I spoke to Shine and he asked me to fax over information. Addendum entered by Adriane Rizo RN 07/02/25 09:51: 0930 I received a call from Rylie from [facility] and she states they do not have surgery/oncology. Patient was declined. Rylie states they send all their patient's to a tertiary center. Addendum entered by Adriane Rizo RN 07/02/25 09:06: 0900 Scan from previous visit shows severe scarring left kidney, 4 mm upper pole left renal calculus large mass in the sigmoid colon, likely tumor mass which is invading the left anterior pelvic wall and extending through the pelvic wall into the subcutaneous fatty tissue of the anterior left pelvic wall, sigmoid colon marked inflammation or diverticulitis less likely but not excluded Addendum entered by Adriane Rizo RN 07/02/25 09:02: 0855 Patient has an enlarging abscess tumor mass extending from the sigmoid colon through the pelvic wall into the subcutaneous fatty tissue with more prominent fluid densities and air densities. Original Note: [id number] I received a referral to transfer patient for surgery/oncology for invasive adenocarcimoma. Patient has a suprapubic abscess with drain.
[2025-07-02 12:00] VITALS: BP 109/80; PULSE 97; RESP 17; TEMP 36.1; O2SAT 98
--- NOTE | 2025-07-02 13:34 | PD.RESPRO ---
Documentation for date of: 07/02/25 Subjective Subjective Interval history: Patient examined bedside, labs reviewed. Patient has no complaints and is patiently waiting for transfer. Exam Vital Signs Temp Pulse Resp BP Pulse Ox O2 Del Method O2 Flow Rate 97.0 F 106 H 17 110/73 98 Room Air 3 07/02/25 08:00 07/02/25 08:00 07/02/25 08:00 07/02/25 08:00 07/02/25 08:00 07/02/25 08:00 07/02/25 08:00 Narrative Exam General: No acute distress, well nourished Eye: PERRL, EOMI, normal conjunctiva, no scleral icterus HENT: Normocephalic, atraumatic, normal hearing, moist oral mucosa Neck: Supple, non-tender, no JVD, no lymphadenopathy Lungs: Clear to auscultation bilaterally, non-labored respirations, symmetric chest rise, no use of accessory muscles Heart: Normal S1 and S2, no S3 or S4 appreciated. Normal rate and regular rhythm, no murmurs, rubs gallops, or edema. Peripheral pulses intact bilaterally, capillary refill brisk distally Abdomen: Soft, non-tender, non-distended, normal bowel sounds. No guarding or rebound tenderness. Musculoskeletal: Normal range of motion and strength, no tenderness or swelling Skin: Two open lesions (LLQ and left suprapubic) draining serosanguinous fluid, the inguinal site had purulent material expressed from it, while the top drainage site had serosanguinous fluid expressed, foul odor, surrounding warmth, pink granulation tissue, edema, appropriately TTP. Vinegar fluid from drainage site Neurologic: Alert, awake and oriented x3. CN II-XII grossly intact. No focal neuro deficits. No signs of meningeal irritation noted. Psychiatric: Cooperative, appropriate mood and affect Objective Labs 07/02/25 06:32 07/02/25 06:32 Labs: Laboratory Results - last 24 hr 07/02/25 06:32 WBC 8.4 RBC 3.38 L Hgb 8.4 L Hct 28.6 L MCV 85 MCH 24.9 L MCHC 29.4 L RDW Std Deviation 51.5 H Plt Count 373 D Neut % (Auto) 66 Lymph % (Auto) 20 Taylor % (Auto) 6 Eos % (Auto) 3 Baso % (Auto) 1 Neut # (Auto) 5.5 Lymph # (Auto) 1.7 Taylor # (Auto) 0.5 Eos # (Auto) 0.2 Baso # (Auto) 0.1 Immature Gran # (Auto) 0.38 H Absolute Nucleated RBC 0.00 Immature Gran % 5 H Nucleated RBC % 0 Sodium 142 Potassium 4.2 Chloride 107 Carbon Dioxide 26.8 Anion Gap 8 BUN 9 Creatinine 0.5 L Estim Creat Clear Calc 128.2 eGFR > 60 BUN/Creatinine Ratio 18 Glucose 104 Calculated Osmolality 281 Calcium 8.9 Corrected Calcium 9.3 Phosphorus 4.4 Magnesium 2.2 Total Bilirubin 0.3 AST 30 ALT 17 Alkaline Phosphatase 68 Total Protein 6.6 Albumin 3.5 Globulin 3.1 Albumin/Globulin Ratio 1.1 L Quality Measures Quality Measures VTE prophylaxis Assessment & Plan Assessment Current Active Medications: Generic Name Dose Route Start Last Admin Trade Name Freq PRN Reason Stop Dose Admin Acetaminophen 650 mg 06/26/25 00:00 Acetaminophen 325 Mg Tablet PO 07/26/25 00:00 Q6H PRN Fever >100.3 Acetaminophen 650 mg 06/26/25 00:00 Acetaminophen 325 Mg Tablet PO 07/26/25 00:00 Q6H PRN PAIN SCALE 1-3 (mild Ascorbic Acid 500 mg 06/26/25 09:15 07/02/25 08:39 Ascorbic Acid 250 Mg Tablet PO 07/26/25 09:14 500 mg BID BRIANNA Administration Heparin Sodium (Porcine) 5,000 unit 06/26/25 06:00 07/02/25 06:10 Heparin Sod Inj 5000 Unit/Ml Vial SC 07/10/25 05:59 5,000 unit Q8HR BRIANNA Administration Multivitamins 1 tab 06/26/25 09:15 07/02/25 08:39 Multivitamins Tablet PO 07/26/25 09:14 1 tab QDAY BRIANNA Administration Ondansetron HCl 4 mg 06/26/25 00:00 06/26/25 11:02 Ondansetron Inj 2 Mg/Ml Inj 2 Ml IVP 07/26/25 00:00 4 mg Q6H PRN Administration NAUSEA OR VOMITING Protocol Zinc Sulfate 220 mg 06/26/25 09:15 07/02/25 08:39 Zinc Sulfate 220 Mg Capsule PO 07/26/25 09:14 220 mg QDAY BRIANNA Administration Plan Ms. Flemate is a 55 y/o female with PMH diverticulosis with peridiverticular abscess requiring percutaneous drainage in 02/03 who presented to ED 06/25 worsening serosanguinous drainage of LLQ and left suprapubic abscesses. Admitted for peridiverticular abscesses. Patient has not noticed any blood in stool or fecal matter in her urine, or any changes to her urination as well as no foul smelling vaginal excretions or changes in menstruation. Plan for surgery on Tuesday when Dr. Ballesteros returns for resection of large sigmoid colonic mass. Initiaiting transfer to tertiary center. #Sigmoid diverticulitis complicated by #Peridiverticular abscesses #& Enterocutaneous Fistula #Invasive Adenocarcinoma Several days of diarrhea, no melena/hematochezia/hematemesis. No abdominal TTP. Was seeing Dr. Ramirez outpatient, planned for CXR for possible mets detection and colonoscopy. Two abscesses draining foul-smelling serosanguinous fluid, surrounding warmth, erythema, edema, TTP. Previous wound culture grew E coli, managed with IV Zosyn, afebrile, leukocytosis leukocytosis WBC 21.5. Lactic acid WNL. CT a/p showed acute diverticulitis sigmoid colon, enlarging abscess tumor mass extending from sigmoid colon through the pelvic wall into the subcutaneous fatty tissue with more prominent fluid densities and air densities. GI consulted to rule out tumor mass vs IBD. Plan: - Consulted general surgery, Dr. Ramirez: If there is no intracolonic mass then IR biopsy may be warranted for clarifying the etiology of this mass. Depending upon these findings pt could require sigmoidectomy which would likely require fecal diversion either by colostomy or loop ileostomy. - Ok with colostomy bag to measure 24 hour output. - Bag output: minimal <20-0ml/day - IV Vancomycin daily (06/25 - 06/26) - IV Zosyn 4.5 mg q6h (06/26-07/01) - Referral wound care - Wound healing vitamins initiated - GI consulted recs appreciated: Patient underwent colonoscopy on 06/28 which revealed a ulcerated completely obstructing large sigmoid mass. Biopsies were taken. The mass is at 45 cm from the point of entry of the anal verge. Completely obstructing. Findings are concerning for malignancy. CEA within normal limits. Case discussed with general surgery who reports likely surgical intervention on Renetta 10/21/25. Continue diet and pain management as needed. Follow-up biopsy results. Wound culture grew E. coli and continue IV antibiotic. Blood culture showed no growth at 48 hours. -Dr. Taylor helping initiate transfer to tertiary center. Bx result is + invasive adenocarcinoma. #Leukocytosis - resolved WBC 21.5 --> 14.9. no signs of UTI Plan: - Abscess management as above - CTM with daily CBC - Urine cx: possible contmaination #Chronic normocytic anemia - stable Hgb 9, HCT 29.6 On previous admission: Fe 20, TIBC 498, Fe Sat 4, Ferritin 142. Most likely anemia of chronic disease Plan: - CTM with daily CBC #Thrombocytosis - resolved most likely reactive plt 495 Plan: - Abscess management as above - CTM with daily CBC #Hyponatremia - resolved #Hypochloremia - resolved Mild. Na 135, Cl 97 Plan: - CTM with daily BMP #Severe left renal scarring #Left renal calculus 4 mm, asymptomatic Incidental finding on CT a/p: Severe left renal scarring, 4 mm left renal calculus, no hydronephrosis or ureteral calculi. BUN and Cr WNL. eGFR >60 Plan: - CTM for symptoms #Endometrial mass 35 mm Incidental finding on CT a/p: Subtle endometrial uterine mass 36 mm. Plan: - CTM for symptoms Checklist Dispo: Admit to med surg, pending transfer to tertiary center Diet: CLD in anticipation of possible surgical procedure Bowel Reg: n/a VTE ppx: heparin subQ GI ppx: n/a Pain mgmt: Tylenol PRN Code status: full Plan discussed with supervising resident Dr. Sharpe and attending Dr. Migdalia York MD PGY1 Attending Provider Attestation/Addendum I have discussed and was present for the essential components of the history, physical examination, diagnosis, and treatment plan with the resident. I agree with the patient's care as documented by the resident and amended herein by me. Jose Negron DO. Although this document has been carefully reviewed, there may still be some phonetic and other typographical errors. These errors are purely grammatical due to imperfections in the software program and should not be construed in any way to compromise the substance of the patient's medical care during this visit. Patient seen and evaluated this AM. Patient pending transfer to tertiary center for surgery/oncology and possible urology specialties. Has been denied from [facility] today due to their critical capacity at present. Transfer nurse notified. Will continue to search for centers. Patient is stable for now, labs largely unremarkable with exception of a hemoglobin of 8.4 however no subjective complaints today. Will continue to monitor closely.
--- NOTE | 2025-07-02 15:08 | PC.SS ---
Rounding: Pending HLOC [place]
[2025-07-02 16:00] VITALS: BP 114/80; PULSE 101; RESP 17; TEMP 36.6; O2SAT 97
[2025-07-02 20:00] VITALS: BP 110/82; PULSE 95; RESP 18; TEMP 36.1; O2SAT 97
--- NOTE | 2025-07-02 21:04 | ESPR_ITS ---
Documentation for date of: 07/02/25 Subjective Subjective Interval history: Spoke with Dr. Poncho Irene at [facility] She for surgery at [facility] Patient accepted in transfer As patient is completely obstructed she needs immediate attention Exam Vital Signs Temp Pulse Resp BP Pulse Ox O2 Del Method O2 Flow Rate 97.8 F 101 H 17 114/80 97 Room Air 3 07/02/25 16:00 07/02/25 16:00 07/02/25 16:00 07/02/25 16:00 07/02/25 16:00 07/02/25 16:00 07/02/25 08:00 Objective Labs 07/02/25 06:32 07/02/25 06:32 Labs: Laboratory Results - last 24 hr 07/02/25 06:32 WBC 8.4 RBC 3.38 L Hgb 8.4 L Hct 28.6 L MCV 85 MCH 24.9 L MCHC 29.4 L RDW Std Deviation 51.5 H Plt Count 373 D Neut % (Auto) 66 Lymph % (Auto) 20 Jenkins % (Auto) 6 Eos % (Auto) 3 Baso % (Auto) 1 Neut # (Auto) 5.5 Lymph # (Auto) 1.7 Jenkins # (Auto) 0.5 Eos # (Auto) 0.2 Baso # (Auto) 0.1 Immature Gran # (Auto) 0.38 H Absolute Nucleated RBC 0.00 Immature Gran % 5 H Nucleated RBC % 0 Sodium 142 Potassium 4.2 Chloride 107 Carbon Dioxide 26.8 Anion Gap 8 BUN 9 Creatinine 0.5 L Estim Creat Clear Calc 128.2 eGFR > 60 BUN/Creatinine Ratio 18 Glucose 104 Calculated Osmolality 281 Calcium 8.9 Corrected Calcium 9.3 Phosphorus 4.4 Magnesium 2.2 Total Bilirubin 0.3 AST 30 ALT 17 Alkaline Phosphatase 68 Total Protein 6.6 Albumin 3.5 Globulin 3.1 Albumin/Globulin Ratio 1.1 L Impressions Impression: Obstructing invasive adenocarcinoma at 45 cm from the anal verge Spoke with the attending RN Call [facility] and get the patient transferred and the bed will be arranged by Dr. Brown and [facility] Stop calling other centers for transfer Assessment & Plan Time Spent With Patient Time: Total time spent is greater than 50% in coordination of care (as documented) at patient's floor/unit and/or counseling patient:
[2025-07-03] VITALS: BP 114/80; PULSE 108; RESP 18; TEMP 526.1; TEMP 979; O2SAT 93
[2025-07-03 04:00] VITALS: BP 114/79; PULSE 63; RESP 15; TEMP 36.4; O2SAT 98
[2025-07-03 05:55] LABS: Basophils # (Auto) 0.1 Thou/mm3 (0.0-0.2); Basophils % (Auto) 1 % (0-2.5); Eosinophils # (Auto) 0.3 Thou/mm3 (0.0-0.5); Eosinophils % (Auto) 2 % (0-10); Hematocrit 29.9 % (36.0-46.0); Hemoglobin 8.9 g/dL (12.0-16.0); Immature Granulocytes Auto 0.24 Thou/mm3 (0.00-0.00); Lymphocytes # (Auto) 1.8 Thou/mm3 (1.0-4.8); Lymphocytes % (Auto) 16 % (10-50); Mean Corpuscular HGB Conc 29.8 g/dl (31.0-37.0); Mean Corpuscular Hemoglobin 25.4 pg (25.0-35.0); Mean Corpuscular Volume 85 fL (80-100); Monocytes # (Auto) 0.7 Thou/mm3 (0.0-0.8); Monocytes % (Auto) 6 % (0-12); Neutrophils # (Auto) 8.1 Thou/mm3 (1.8-7.7); Neutrophils % (Auto) 73 % (37-80); Nucleated Red Blood Cell # 0.02 Thou/mm3 (0.00-0.00); Nucleated Red Blood Cell % 0 /100 WBC (0); Platelet Count 356 Thou/mm3 (140-440); RDW Standard Deviation 54.4 fL (36.4-46.3); Red Blood Count 3.51 Miln/mm3 (4.00-5.20); White Blood Count 11.1 Thou/mm3 (3.6-11.0)
[2025-07-03] MEDS: HEPARIN SOD INJ 5000 UNIT/ML VIAL SC ×3 (06:15→21:13)
[2025-07-03 06:20] LABS: Alanine Aminotransferase 51 U/L (10-49); Albumin, Serum 3.9 gm/dL (3.5-5.0); Albumin/Globulin Ratio 1.3 (1.2-2.2); Alkaline Phosphatase 79 U/L (46-116); Anion Gap 13 (7-16); Aspartate Amino Transferase 69 U/L (0-34); BUN/Creatinine Ratio 17 Ratio (12-20); Bilirubin,Total 0.5 mg/dL (0.3-1.2); Blood Urea Nitrogen 10 mg/dL (9-23); Calcium 9.0 mg/dL (8.3-10.6); Calcium (Corrected) 9.1 mg/dL (8.5-10.1); Carbon Dioxide 23.6 mMol/L (20.0-31.0); Chloride 102 mMol/L (98-107); Creatinine (Component) 0.6 mg/dL (0.6-1.3); Estimated Creatinine Clearance 106.8 mL/min (>60); Globulin 2.9 gm/dL (2.3-3.5); Glucose 119 mg/dL (74-106); Magnesium 2.2 mg/dL (1.6-2.6); Osmolality,Calculated 277 (275-295); Phosphorous 4.6 mg/dL (2.4-5.1); Potassium 4.0 mMol/L (3.4-5.1); Sodium 139 mMol/L (136-145); Total Protein 6.8 gm/dL (5.7-8.2); eGFR > 60 See Note
[2025-07-03 08:00] VITALS: BP 118/71; PULSE 108; RESP 19; TEMP 36.2; O2SAT 96
--- NOTE | 2025-07-03 08:41 | ESDS_ITS ---
<Statement entered by Chad Sharpe MD - 07/03/25 16:05> I saw and examined patient personally and supervised PGY 1 resident, Dr. Lopez with formulating a management plan. I agree with the documentation with the exceptions as listed below. 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 She underwent colonoscopy with biopsy while inpatient which revealed a large obstructing sigmoid mass. Histology was positive for invasive adenocarcinoma of the colon. General surgery, Dr. Ballesteros assessed the patient and deemed it necessary for her to be transferred to a tertiary center with surgical oncology to give her the best chance at a R0 resection. There is also a possibility of spread to the ureter and urology will need to be on standby. All patient's labs are returning to her baseline. Patient is clinically stable for transfer. Patient was accepted to [facility] by general surgeon, Dr. Irene. Plan of care discussed with Attending Dr. Migdalia Sharpe MD PGY 2 Disclaimer: This note was dictated by speech recognition. Minor errors in crew scheduler may be present due to voice recognition software. Planned Discharge Date 07/03/25 DS: Providers Provider Date of admission: 06/26/25 00:00 Primary care physician: Physician No Primary/Family Admitting Provider: Octaviano Nunez MD Attending Provider on Admission: Ez Negron DO Consults: 06/26/25 00:28 Consult to General Surgery Stat Comment: Consulting Provider: Jeannie Ramirez 06/26/25 00:30 Referral Wound Care Stat Comment: 06/26/25 09:38 Referral Nutritional Services Routine Comment: Wounds 06/26/25 10:51 Consult to Gastroenterology Routine Comment: angelica-diverticular abscess Consulting Provider: Rocío Taylor 06/28/25 08:05 Referral Registered Dietitian Routine Comment: 07/02/25 08:32 Referral - [facility] Routine Service Needed for Transfer: General Surgery Addl Comments:: Surgery- Oncology. May need Urology on standby for possible spread to Ureters 07/03/25 03:40 Referral [facility] Routine Comment: Attending Provider on DC: Jose Negron DO Discharging Provider: Catalino Lopez DO DS: Diagnosis Problem List Completed Was Problem List Reviewed/Reconciled?: Yes Hospital Course Hospital Course Hospital course: Summary: Ms. Jackson is a 55 y/o female with PMH diverticulosis with peridiverticular abscess requiring percutaneous drainage in 02/03 who presented to ED 06/25 worsening serosanguinous drainage of LLQ and left suprapubic abscesses. Admitted for peridiverticular abscesses. ER: Afebrile, tachycardic to 120s, otherwise VSS. Labs significant for WBC 21.5, hgb 9, HCT 29.6, plt 495, Na 135, Cl 97, PT 12.3. Lactic acid 1.[address] a/p showed acute diverticulitis sigmoid colon, enlarging abscess tumor mass extending from sigmoid colon through the pelvic wall into the subcutaneous fatty tissue with more prominent fluid densities and air densities. Severe left renal scarring, 4 mm left renal calculus, no hydronephrosis or ureteral calculi. Substle endometrial uterine mass 36 mm. Hospital: During patient's hospital course, she was started on IV vancomycin and IV Zosyn and had an Eakins colostomy bag placed for her enterocutaneous fistula secondary to complicated sigmoid diverticulitis. A colonoscopy was performed on 06/27 which showed an ulcerated and completely obstructing large mass in the sigmoid colon that the colonoscope could not bypass that was thought to likely be malignant. Histology revealed invasive adenocarcinoma. General Surgery was consulted and recommended the patient to be transferred to a tertiary center for evaluation by a surgical oncologist. Patient was initiated for transfer to [facility] on 07/03/25. Patient was accepted to [facility] today. Currently pending insurance authorization. Patient is safe to be transferred. Further discharge instructions below. #Invasive adenocarcinoma of Sigmoid colon with possible spread to ureters and abdominal wall #Peridiverticular abscess with enterocutaneous fistula #Acute diverticulitis of sigmoid colon #Diverticulosis #Leukocytosis #Chronic normocytic anemia #Thrombocytosis #Hyponatremia #Hypochloremia #Severe left renal scarring #Left renal calculus 4 mm, asymptomatic #Endometrial mass 35 mm Status at Discharge Cognitive/Behavioral Status at Discharge: stable Functional Status at Discharge: independent ambulation Overall Status at Discharge: patient is back to baseline Patient's care plan was discussed with my attending, Dr. Negron, and senior r teressadent, Dr. Sharpe. Catalino Lopez, DO Internal Medicine, PGY-1 Time Spent with Patient Time attestation: Total time spent providing and/or coordinating discharge services: Time spent: Greater than 30 minutes Exam Vital Signs Temp Pulse Resp BP Pulse Ox O2 Del Method O2 Flow Rate 97.6 F 63 15 114/79 98 Room Air 3 07/03/25 04:00 07/03/25 04:00 07/03/25 04:00 07/03/25 04:00 07/03/25 04:00 07/03/25 04:00 07/02/25 08:00 Narrative Exam General: No acute distress, well nourished Eye: PERRL, EOMI, normal conjunctiva, no scleral icterus HENT: Normocephalic, atraumatic, normal hearing, moist oral mucosa Neck: Supple, non-tender, no JVD, no lymphadenopathy Lungs: Clear to auscultation bilaterally, non-labored respirations, symmetric chest rise, no use of accessory muscles Heart: Normal S1 and S2, no S3 or S4 appreciated. Normal rate and regular rhythm, no murmurs, rubs gallops, or edema. Peripheral pulses intact bilaterally, capillary refill brisk distally Abdomen: Soft, non-tender, non-distended, normal bowel sounds. No guarding or rebound tenderness. Musculoskeletal: Normal range of motion and strength, no tenderness or swelling Skin: Two open lesions (LLQ and left suprapubic) draining serosanguinous fluid, the inguinal site had purulent material expressed from it, while the top drainage site had serosanguinous fluid expressed, foul odor, surrounding warmth, pink granulation tissue, edema, appropriately TTP. Vinegar fluid from drainage site Neurologic: Alert, awake and oriented x3. CN II-XII grossly intact. No focal neuro deficits. No signs of meningeal irritation noted. Psychiatric: Cooperative, appropriate mood and affect Discharge Plan Plan Patient Disposition: [facility] Pt Being Transferred to: [facility] Service Needed for Transfer: Surgical Oncologist Patient condition on transfer: Stable Care Plan Goals: ? Patient stable for transfer to [facility] for surgical oncology. Prescriptions/Referrals Prescriptions/Med Rec: No Action No Known Home Medications Referrals: No Primary/Family,Physician [Primary Care Provider] Patient/Caregiver Discharge Instructions Print Language: Hungarian Stand Alone Forms: Patty Award Info., Patient Portal Info Letter Quality Discharge Quality Measures VTE prophylaxis Attestestation Attestation I have discussed and was present for the essential components of the history, physical examination, diagnosis, and treatment plan with the resident. I agree with the patient's care as documented by the resident and amended herein by me. Jose Negron DO. Although this document has been carefully reviewed, there may still be some phonetic and other typographical errors. These errors are purely grammatical due to imperfections in the software program and should not be construed in any way to compromise the substance of the patient's medical care during this visit. Patient accepted by Dr. Irene at [facility], final details being worked out in the transfer center. Most likely will not be transferred today as hoped, will monitor closely while she is still here
[2025-07-03] MEDS: MULTIVITAMINS TABLET 1 TAB PO (09:09)
[2025-07-03] MEDS: ZINC SULFATE 220 MG CAPSULE PO (09:09)
[2025-07-03] MEDS: ASCORBIC ACID 250 MG TABLET 500 MG PO ×2 (09:09→21:12)
--- NOTE | 2025-07-03 09:09 | PC.CM ---
Addendum entered by Adriane Rizo RN 07/03/25 19:44: [address] Negron know that I have not heard back from [facility]. I let him know to have Dr. Taylor call Dr. Irene and ask that he reaches out to [facility] transfer center to let them know he wants to accept patient. Packet started and I let the packet on transfer nurse desk. Original Note: [id number] I received a call from Dr. Negron stating Dr. Taylor spoke to Dr. Poncho Irene at [facility], and he has accepted patient to [facility]. I called [facility] and I spoke to the transfer nurse Nam and I provided her with the information. . She states they are still at capacity, but she will follow up with Dr. Irene to verify. She states she will get back to me.
[2025-07-03 12:00] VITALS: BP 111/82; PULSE 110; RESP 17; TEMP 36.8; O2SAT 98
--- NOTE | 2025-07-03 12:04 | PC.SS ---
Update: Pending [facility], possible [facility], Pending Bed availability.
[2025-07-03] MEDS: MG HYD/AL HYD/SIME (Maalox Reg) SUSP 30 ML UDC PO (12:39)
[2025-07-03] MEDS: NA SU/NAHCO3/KC/PEG (Golytely) 4,000 ML BTL 4000 ML PO (13:36)
[2025-07-03 16:00] VITALS: BP 116/82; PULSE 108; RESP 18; TEMP 36.3; O2SAT 96
[2025-07-03] MEDS: ONDANSETRON INJ 2 MG/ML INJ 2 ML 4 MG IVP (17:18)
[2025-07-03 20:00] VITALS: BP 116/74; PULSE 109; RESP 16; TEMP 36.1; O2SAT 96
--- NOTE | 2025-07-03 21:39 | ESPR_ITS ---
Documentation for date of: 07/03/25 Subjective Subjective Interval history: Spoke with Dr. Poncho Irene well logging captain at [facility] He was gracious enough to accept the patient and call the transfer center at [facility] The transit will be expedited because of the complete obstruction of the left colon at 45 cm from the anal verge As per his request GoLytely started to clean the colon out Once a bed becomes available patient will be transferred I had the pleasure of talking to Dr Negron attending physician on the case Exam Vital Signs Temp Pulse Resp BP Pulse Ox O2 Del Method O2 Flow Rate 97.4 F 108 H 18 116/82 96 Room Air 3 07/03/25 16:00 07/03/25 16:00 07/03/25 16:00 07/03/25 16:00 07/03/25 16:00 07/03/25 16:00 07/03/25 08:00 Objective Labs 07/03/25 04:33 07/03/25 04:33 Labs: Laboratory Results - last 24 hr 07/03/25 04:33 WBC 11.1 H RBC 3.51 L Hgb 8.9 L Hct 29.9 L MCV 85 MCH 25.4 MCHC 29.8 L RDW Std Deviation 54.4 H Plt Count 356 Neut % (Auto) 73 Lymph % (Auto) 16 [place] % (Auto) 6 Eos % (Auto) 2 Baso % (Auto) 1 Neut # (Auto) 8.1 H Lymph # (Auto) 1.8 [place] # (Auto) 0.7 Eos # (Auto) 0.3 Baso # (Auto) 0.1 Immature Gran # (Auto) 0.24 H Absolute Nucleated RBC 0.02 H Immature Gran % 2 H Nucleated RBC % 0 Sodium 139 Potassium 4.0 Chloride 102 Carbon Dioxide 23.6 Anion Gap 13 BUN 10 Creatinine 0.6 Estim Creat Clear Calc 106.8 eGFR > 60 BUN/Creatinine Ratio 17 Glucose 119 H Calculated Osmolality 277 Calcium 9.0 Corrected Calcium 9.1 Phosphorus 4.6 Magnesium 2.2 Total Bilirubin 0.5 AST 69 H ALT 51 H Alkaline Phosphatase 79 Total Protein 6.8 Albumin 3.9 Globulin 2.9 Albumin/Globulin Ratio 1.3 Impressions Impression: 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
[2025-07-03] MEDS: ACETAMINOPHEN 325 MG TABLET 650 MG PO (21:40)
[2025-07-04] VITALS: BP 115/79; PULSE 103; RESP 16; TEMP 36.1; O2SAT 98
[2025-07-04 04:00] VITALS: BP 107/76; PULSE 92; RESP 16; TEMP 36.1; O2SAT 99
[2025-07-04] MEDS: HEPARIN SOD INJ 5000 UNIT/ML VIAL SC ×2 (05:07→14:16)
[2025-07-04 06:01] LABS: Basophils # (Auto) 0.0 Thou/mm3 (0.0-0.2); Basophils % (Auto) 0 % (0-2.5); Eosinophils # (Auto) 0.2 Thou/mm3 (0.0-0.5); Eosinophils % (Auto) 2 % (0-10); Hematocrit 31.7 % (36.0-46.0); Hemoglobin 9.4 g/dL (12.0-16.0); Immature Granulocytes Auto 0.16 Thou/mm3 (0.00-0.00); Lymphocytes # (Auto) 1.7 Thou/mm3 (1.0-4.8); Lymphocytes % (Auto) 16 % (10-50); Mean Corpuscular HGB Conc 29.7 g/dl (31.0-37.0); Mean Corpuscular Hemoglobin 24.7 pg (25.0-35.0); Mean Corpuscular Volume 83 fL (80-100); Monocytes # (Auto) 0.8 Thou/mm3 (0.0-0.8); Monocytes % (Auto) 7 % (0-12); Neutrophils # (Auto) 8.2 Thou/mm3 (1.8-7.7); Neutrophils % (Auto) 74 % (37-80); Nucleated Red Blood Cell # 0.00 Thou/mm3 (0.00-0.00); Nucleated Red Blood Cell % 0 /100 WBC (0); Platelet Count 372 Thou/mm3 (140-440); RDW Standard Deviation 54.4 fL (36.4-46.3); Red Blood Count 3.80 Miln/mm3 (4.00-5.20); White Blood Count 11.1 Thou/mm3 (3.6-11.0)
[2025-07-04 06:23] LABS: Alanine Aminotransferase 171 U/L (10-49); Albumin, Serum 4.2 gm/dL (3.5-5.0); Albumin/Globulin Ratio 1.3 (1.2-2.2); Alkaline Phosphatase 97 U/L (46-116); Anion Gap 12 (7-16); Aspartate Amino Transferase 180 U/L (0-34); BUN/Creatinine Ratio 15 Ratio (12-20); Bilirubin,Total 1.0 mg/dL (0.3-1.2); Blood Urea Nitrogen 9 mg/dL (9-23); Calcium 9.4 mg/dL (8.3-10.6); Calcium (Corrected) 9.4 mg/dL (8.5-10.1); Carbon Dioxide 28.2 mMol/L (20.0-31.0); Chloride 101 mMol/L (98-107); Creatinine (Component) 0.6 mg/dL (0.6-1.3); Estimated Creatinine Clearance 106.8 mL/min (>60); Globulin 3.3 gm/dL (2.3-3.5); Glucose 111 mg/dL (74-106); Magnesium 2.3 mg/dL (1.6-2.6); Osmolality,Calculated 280 (275-295); Phosphorous 4.2 mg/dL (2.4-5.1); Potassium 4.2 mMol/L (3.4-5.1); Sodium 141 mMol/L (136-145); Total Protein 7.5 gm/dL (5.7-8.2); eGFR > 60 See Note
[2025-07-04 07:59] VITALS: BP 104/73; PULSE 95; RESP 16; TEMP 36.1; O2SAT 99
[2025-07-04] MEDS: MULTIVITAMINS TABLET 1 TAB PO (08:54)
[2025-07-04] MEDS: ASCORBIC ACID 250 MG TABLET 500 MG PO (08:54)
[2025-07-04] MEDS: ZINC SULFATE 220 MG CAPSULE PO (08:55)
--- NOTE | 2025-07-04 09:06 | ESDS_ITS ---
<Statement entered by Chad Sharpe MD - 07/04/25 21:12> I saw and examined patient personally and supervised PGY 1 resident, Dr. York with formulating a management plan. I agree with the documentation with the exceptions as listed below. 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 She underwent colonoscopy with biopsy while inpatient which revealed a large obstructing sigmoid mass. Histology was positive for invasive adenocarcinoma of the colon. General surgery, Dr. Ballesteros assessed the patient and deemed it necessary for her to be transferred to a tertiary center with surgical oncology to give her the best chance at a R0 resection. There is also a possibility of spread to the ureter and urology will need to be on standby. All patient's labs are returning to her baseline. Patient is clinically stable for transfer. Patient was accepted to [facility] by general surgeon, Dr. Irene. Plan of care discussed with Attending Dr. Migdalia Sharpe MD PGY 2 Disclaimer: This note was dictated by speech recognition. Minor errors in tobacco sampler may be present due to voice recognition software. Planned Discharge Date 07/04/25 DS: Providers Provider Date of admission: 06/26/25 00:00 Primary care physician: Physician No Primary/Family Admitting Provider: Octaviano Nunez MD Attending Provider on Admission: Ez Negron DO Consults: 06/26/25 00:28 Consult to General Surgery Stat Comment: Consulting Provider: Jeannie Ramirez 06/26/25 00:30 Referral Wound Care Stat Comment: 06/26/25 09:38 Referral Nutritional Services Routine Comment: Wounds 06/26/25 10:51 Consult to Gastroenterology Routine Comment: angelica-diverticular abscess Consulting Provider: Rocío Taylor 06/28/25 08:05 Referral Registered Dietitian Routine Comment: 07/02/25 08:32 Referral - Gis Analyst Developer Routine Service Needed for Transfer: General Surgery Addl Comments:: Surgery- Oncology. May need Urology on standby for possible spread to Ureters 07/03/25 03:40 Referral [place] Routine Comment: Attending Provider on DC: Ez Negron DO Discharging Provider: Ez Negron DO DS: Diagnosis Problem List Completed Was Problem List Reviewed/Reconciled?: Yes Hospital Course Hospital Course Hospital course: Ms. Jackson is a 55 y/o female with PMH diverticulosis with peridiverticular abscess requiring percutaneous drainage in 02/03 who presented to ED 06/25 worsening serosanguinous drainage of LLQ and left suprapubic abscesses. Admitted for peridiverticular abscesses. ER: Afebrile, tachycardic to 120s, otherwise VSS. Labs significant for WBC 21.5, hgb 9, HCT 29.6, plt 495, Na 135, Cl 97, PT 12.3. Lactic acid 1.[address] a/p showed acute diverticulitis sigmoid colon, enlarging abscess tumor mass extending from sigmoid colon through the pelvic wall into the subcutaneous fatty tissue with more prominent fluid densities and air densities. Severe left renal scarring, 4 mm left renal calculus, no hydronephrosis or ureteral calculi. Substle endometrial uterine mass 36 mm. Hospital: During patient's hospital course, she was started on IV vancomycin and IV Zosyn and had an Eakins colostomy bag placed for her enterocutaneous fistula secondary to complicated sigmoid diverticulitis. A colonoscopy was performed on 06/27 which showed an ulcerated and completely obstructing large mass in the sigmoid colon that the colonoscope could not bypass that was thought to likely be malignant. Histology revealed invasive adenocarcinoma. General Surgery was consulted and recommended the patient to be transferred to a tertiary center for evaluation by a surgical oncologist. Patient was initiated for transfer to [facility] on 07/03/25. Patient was accepted to [facility] today. Currently pending insurance authorization. Patient is safe to be transferred. Further discharge instructions below. 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 Negron, and senior resident, Dr. Sharpe. Sachin York Internal Medicine, PGY-1 Status at Discharge Functional status at discharge: independent ambulation Overall status at discharge: patient is back to baseline Time Spent with Patient Time attestation: Total time spent providing and/or coordinating discharge services: Time spent: Greater than 30 minutes Exam Vital Signs Temp Pulse Resp BP Pulse Ox O2 Del Method O2 Flow Rate 97.0 F 95 16 104/73 99 Room Air 3 07/04/25 07:59 07/04/25 07:59 07/04/25 07:59 07/04/25 07:59 07/04/25 07:59 07/04/25 07:59 07/03/25 08:00 Narrative Exam General: No acute distress, well nourished Eye: PERRL, EOMI, normal conjunctiva, no scleral icterus HENT: Normocephalic, atraumatic, normal hearing, moist oral mucosa Neck: Supple, non-tender, no JVD, no lymphadenopathy Lungs: Clear to auscultation bilaterally, non-labored respirations, symmetric chest rise, no use of accessory muscles Heart: Normal S1 and S2, no S3 or S4 appreciated. Normal rate and regular rhythm, no murmurs, rubs gallops, or edema. Peripheral pulses intact bilaterally, capillary refill brisk distally Abdomen: Soft, non-tender, non-distended, normal bowel sounds. No guarding or rebound tenderness. Musculoskeletal: Normal range of motion and strength, no tenderness or swelling Skin: Two open lesions (LLQ and left suprapubic) draining serosanguinous fluid, the inguinal site had purulent material expressed from it, while the top drainage site had serosanguinous fluid expressed, foul odor, surrounding warmth, pink granulation tissue, edema, appropriately TTP. Vinegar fluid from drainage site Neurologic: Alert, awake and oriented x3. CN II-XII grossly intact. No focal neuro deficits. No signs of meningeal irritation noted. Psychiatric: Cooperative, appropriate mood and affect Discharge Plan Plan Patient Disposition: [facility] Facility Pt Being Transferred to: [facility] Service Needed for Transfer: Surgical Oncologist Patient condition on transfer: Stable Care Plan Goals: ? Patient stable for transfer to [facility] for surgical oncology. Prescriptions/Referrals Prescriptions/Med Rec: No Action No Known Home Medications Referrals: No Primary/Family,Physician [Primary Care Provider] Patient/Caregiver Discharge Instructions Print Language: Nigerien Stand Alone Forms: Patty Award Info., Patient Portal Info Letter Discharge Order Discharge Orders: Discharge (Routine); Ordered 07/04/25 Ordered By: Ez Negron Quality Discharge Quality Measures VTE prophylaxis Attestestation Attrober I have discussed and was present for the essential components of the discharge history, physical examination, diagnosis, and discharge treatment plan with the resident. I agree with the patient's discharge care as documented by the resident and amended herein by me. Jose Negron DO. The patient understood all discharge instructions, all questions were answered satisfactorily. The patient was instructed to return to the Emergency Department is symptoms worsened or persisted. Although this document has been carefully reviewed, there may still be some phonetic and other typographical errors. These errors are purely grammatical due to imperfections in the software program and should not be construed in any way to compromise the substance of the patient's medical care during this visit. Time Spent on discharge: 31 minutes
--- NOTE | 2025-07-04 09:33 | PC.CM ---
NUCLEAR SUPERVISING OPERATOR was contacted by Keysha from [facility] ([phone]); transfer center is requesting discharge summary to be faxed over. Transfer center is also requesting vital signs. NANETTE Raymundo is to call the transfer center directly and provide any other requested information.
--- NOTE | 2025-07-04 09:36 | PC.CM ---
KILN FIRER was contacted by Keysha from [facility] ([phone]); transfer center is requesting discharge summary and is also requesting vital signs. Discharge summary was faxed at this time. Breanne, bedside nurse will call [facility] and provide vital sign information along with any other information being requested.
[2025-07-04 10:02] VITALS: BMI 34.9
--- NOTE | 2025-07-04 10:41 | PC.NURSE ---
I spoke to Nestor from [facility]. I gave her patients most recent vitals and other information. They are working on getting a bed for patient. As soon as it is available they will call back with more information.
[2025-07-04] MEDS: ACETAMINOPHEN 325 MG TABLET 650 MG PO (11:14)
[2025-07-04 11:45] VITALS: BP 109/72; PULSE 84; RESP 24; TEMP 36.2; O2SAT 96
--- NOTE | 2025-07-04 15:02 | PC.NURSE ---
Faxed discharge summary papers to [facility] at [phone] [facility]
--- NOTE | 2025-07-04 15:16 | PC.NURSE ---
Gave report to Rahul at [phone]
--- NOTE | 2025-07-04 15:16 | PC.CM ---
Addendum entered by Adriane Rizo RN 07/04/25 16:09: I faxed discharge summary to [facility]. Addendum entered by Adriane Rizo RN 07/04/25 16:08: wireworker supervisor time set for 1730 with [facility]. I will take packet with CD to the floor. Original Note: Patient has been accepted to [facility]. Address [address] [place] [address]. Patient will go to room [facility] Room A 464 bed 1. Number to call and give report is [phone]. Dr. Poncho Irene is the accepting MD.
[2025-07-04 16:00] VITALS: BP 113/76; PULSE 103; RESP 19; TEMP 36.6; O2SAT 96
== END 2025-07-04 17:25 | disposition short-term general hospital (02) | DRG 375 ==
LOC: SERX 22:16 → SERHOLD 06-26 00:33 → S3NX 06-26 02:41
PROVIDERS: Nurse Practitioner Family; Specialist; Admitting Provider Internal Medicine; Emergency Provider Emergency Medicine; Visit Provider Student in an Organized Health Care Education/Training Program
PROC: 0DJD8ZZ Inspection of Lower Intestinal Tract, Via Natural or Artificial Opening Endoscopic (ICD-10-PCS; CPT 45378; principal; 2025-06-27 20:00)
DX: C18.7 Malignant neoplasm of sigmoid colon (principal); E87.1 Hypo-osmolality and hyponatremia; K57.20 Diverticulitis of large intestine with perforation and abscess without bleeding; K63.2 Fistula of intestine; Z87.891 Personal history of nicotine dependence; D75.839 Thrombocytosis, unspecified; E87.8 Other disorders of electrolyte and fluid balance, not elsewhere classified; N20.0 Calculus of kidney; R19.09 Other intra-abdominal and pelvic swelling, mass and lump; E87.6 Hypokalemia; B96.20 Unspecified Escherichia coli [E. coli] as the cause of diseases classified elsewhere; D63.8 Anemia in other chronic diseases classified elsewhere; Z93.3 Colostomy status
CPT/HCPCS: 36415; 74177; 80048; 80053; 80202; 81001; 81025; 82378; 83605; 83690; 83735; 84100; 84145; 85025; 86850; 86900; 86901; 87040; 87070; 87077; 87081; 87086; 87186; 87205; 96374; 99285; A4649; J0696; J1200; J1644; J2250; J2405; J2543; J3010; J3373; J3480; J3490; J7120; Q9967; A9270; J1836

== ENCOUNTER 2025-07-19 10:02 | Outpatient (AMB) | payer BC, SELFPAY ==
[2025-07-19 10:09] VITALS: BP 122/84; PULSE 112; RESP 16; TEMP 36.7; O2SAT 95; BMI 32.4
--- NOTE | 2025-07-19 10:09 | GSCOFFNT_ITS ---
Vital Signs - [facility] 07/19/25 10:09 Height 1.57 m Height Method Measured Weight 80.059 kg Weight Measurement Method Standing Scale BMI 32.4 BP 122/84 Blood Pressure Source Automatic Cuff Blood Pressure Location Left Upper Arm Position Sitting Respiration 16 Pulse 112 H Pulse Source Monitor Temp 98.1 F Temp Source Temporal Artery Scan Pulse Oximetry (%) 95 Oxygen Delivery Method Room Air Med/Allergies Allergies & Medications Allergies No Known Allergies Allergy (Verified 07/19/25 10:10) Medication Reconciliation No Known Home Medications 06/26/25 [History Confirmed 07/19/25] MA Intake Visit Data Collection New Patient or Established: Established Patient (seen at [facility] within 3 years) Seen by Clinical Staff ONLY (RN/MA): No Reason for Visit:: WOUND VAC Pain Present Currently: Yes Pain scale:: 4 Pain Scale Used: Carbone-Bermudez/Numerical Ceramic Engineering Professor Required: No PCP or OBGYN visit in last 3 months: Yes Hx Now: No Do You Feel Safe at Home: Yes Authorities Contacted: N/A Smoking Status Smoking Status: Never smoker Immunization / Flu Flu Vaccine in the Last 12 Months: Yes Flu Vaccine Exclusion Criteria: Already Received Past Medical History Past Medical History NEUROLOGIC: Negative Seizures CARDIAC: Negative Cardiac Disorders or Congestive Heart Failure RESPIRATORY: Negative Chronic Obstructive Pulmonary Disease (COPD) or Asthma GASTROINTESTINAL: Positive Diverticulitis GENITOURINARY: Negative Renal Disease ENDOCRINE: Negative Diabetes Mellitus Type 1 or Diabetes Mellitus Type 2 HEMATOLOGIC: Negative Sickle Cell Disease OTHER HISTORY: Negative Blood Transfusions, Blood Transfusion Reaction or Anesthesia Reactions Family History FAMILY HISTORY: Positive Family Cardiac Disorders; Negative Family Cancer Social History SMOKING STATUS: Smoking status: Never smoker ALCOHOL: Alcohol Intake: Never ALCOHOL FREQUENCY: Alcohol Intake Frequency: holidays/special occasions only HOUSING: Housing: House LIVES WITH: Lives With: Children HPI HPI Narrative 55F with diverticulitis treated by catheter drainage 01/2025, who presented 05/2025 with purulent drainage from the abdominal wall with CT showing a mass extending from the sigmoid colon through to the abdominal wall, transferred to [facility] for surgical intervention now presenting for wound care. Pt and son report she had surgery on Friday 07/06, which was minimally invasive and she had tenriism of continuity without any diverting ostomy. Pt had two JPs in place, one of which was removed when she was discharged on Sunday 07/15 and the other remains in place, with approximately 10cc of output per day. Pt additionally has a wound vac in place to her midline incision which was last changed on Jul 15 Pt reports feeling well overall, her pain is manageable, she is eating and having regular BMs. She denies any fever or nausea. She has noted some drainage from where her previous BERNARD had been placed ROS Review of Systems Systems Reviewed: All systems reviewed, normal except as documented Objective/Exam General General Appearance: alert, cooperative and well groomed Resp Respiratory exam: Absent respiratory distress Abdominal Abdominal exam: Present soft, incision (midline incision with beefy red granulation tissue at base, no surrounding erythema, wound vac foam changed) and other (BERNARD to left lower abdomen with minimal serosanguinous output. Several cm inferior to this there is a wound from previously placed drain and there is some serosanguinous drainage, induration but no erythema or fluctuance); Absent distention or tenderness Assessment & Plan Diagnosis / Problem List (1) Abdominal mass: Status: Acute Assessment & Plan: 55F with diverticulitis treated by catheter drainage 01/2025, who presented 05/2025 with purulent drainage from the abdominal wall with CT showing a mass extending from the sigmoid colon through to the abdominal wall, transferred to [facility] for surgical intervention which was done on Friday 07/06, now with a wound vac to the midline incision and one BERNARD remaining in place. Pt appears clinically well and her wounds are also healing well with no signs of infection. Pt requested I contact [facility] whom she has been in touch with Plan: Spoke with Juvenal at [facility] and will send referral as requested F/u on Tuesday for wound vac change, if BERNARD output remains low will remove at that time Orders: Orders [facility] Home Health Referral 07/24/25 R19.00 - Intra-abdominal and pelvic swelling, mass and lump, unspecified site Office Procedures GNS Level of Care Nursing/Assessment Patient Status: Established Patient Nursing Assessment/Reassesment: Medication Reconciliation, Update PMH in EMR and Vital Signs Coordination of Care: Complex Care and Chronic Disease 1-5, Education Complex Pt/Fam, Consent,records obtained, informed consent, Results/Orders obtained and Staff clarify orders Established Patient Charge Established Patient Point Assignment: 95 Established Patient Point Charge: EP Level 3 (80-115) Patient Portal Questionaires Social History Living Situation History Housing: House Tobacco History Smoking Status: Never smoker Alcohol History Alcohol Intake: Never Alcohol Intake Frequency: holidays/special occasions only Domestic Abuse History Do You Feel Safe at Home: Yes Review of Systems Report any current symptoms Only answer those that you have currently: Past Medical History Past Medical History Have you ever been diagnosed with any of the following: Neurological Problems Seizures: No Cardiology Problems Congestive Heart Failure: No Respiratory Problems Chronic Obstructive Pulmonary Disease (COPD): No Asthma: No Stomache/Intestinal Problems Diverticulitis: Yes Genital/Urinary Problems Renal Disease: No Endocrine Problems Diabetes Mellitus Type 1: No Diabetes Mellitus Type 2: No Blood Problems Sickle Cell Disease: No Other Problems Blood Transfusions: No Blood Transfusion Reaction: No Anesthesia Reactions: No
== END 2025-07-19 10:33 | disposition home or self-care (01) ==
LOC: HODSRG 10:02
PROVIDERS: Supervising Provider Surgery; Visit Provider Surgery
DX: R19.00 Intra-abdominal and pelvic swelling, mass and lump, unspecified site (principal)
CPT/HCPCS: 99213; G0463

== ENCOUNTER 2025-07-22 11:42 | Outpatient (AMB) | payer BC, SELFPAY ==
[2025-07-22 11:52] VITALS: BP 122/80; PULSE 115; RESP 18; TEMP 36.3; O2SAT 97; BMI 32.8
--- NOTE | 2025-07-22 11:52 | PD.GSCLVISIT ---
Vital Signs - Gen Srg Clinic 07/22/25 11:52 Height 1.57 m Height Method Measured Weight 80.796 kg Weight Measurement Method Standing Scale BMI 32.8 BP 122/80 Blood Pressure Source Automatic Cuff Blood Pressure Location Left Upper Arm Position Sitting Respiration 18 Pulse 115 H Pulse Source Monitor Temp 97.3 F Temp Source Temporal Artery Scan Pulse Oximetry (%) 97 Oxygen Delivery Method Room Air Med/Allergies Allergies & Medications Allergies No Known Allergies Allergy (Verified 07/22/25 11:53) Medication Reconciliation No Known Home Medications 06/26/25 [History Confirmed 07/22/25] MA Intake Visit Data Collection New Patient or Established: Established Patient (seen at [facility] within 3 years) Seen by Clinical Staff ONLY (RN/MA): No Reason for Visit:: WOUND VAC F/U Pain Present Currently: Yes Pain scale:: 4 Pain Scale Used: Carbone-Bermudez/Numerical Derrick Car Operator Required: No PCP or OBGYN visit in last 3 months: Yes Hx Now: No Do You Feel Safe at Home: Yes Authorities Contacted: N/A Smoking Status Smoking Status: Never smoker Immunization / Flu Flu Vaccine in the Last 12 Months: Yes Flu Vaccine Exclusion Criteria: Already Received Past Medical History Past Medical History NEUROLOGIC: Negative Seizures CARDIAC: Negative Cardiac Disorders or Congestive Heart Failure RESPIRATORY: Negative Chronic Obstructive Pulmonary Disease (COPD) or Asthma GASTROINTESTINAL: Positive Diverticulitis GENITOURINARY: Negative Renal Disease ENDOCRINE: Negative Diabetes Mellitus Type 1 or Diabetes Mellitus Type 2 HEMATOLOGIC: Negative Sickle Cell Disease OTHER HISTORY: Negative Blood Transfusions, Blood Transfusion Reaction or Anesthesia Reactions Family History FAMILY HISTORY: Positive Family Cardiac Disorders; Negative Family Cancer Social History SMOKING STATUS: Smoking status: Never smoker ALCOHOL: Alcohol Intake: Never ALCOHOL FREQUENCY: Alcohol Intake Frequency: holidays/special occasions only HOUSING: Housing: House LIVES WITH: Lives With: Children HPI HPI Narrative 55F with diverticulitis, sigmoid mass with abscess draining through abdominal wall treated with minimally invasive surgery at [facility] on 07/06, following up here for wound management. Pt has 1/2 JPs remaining and today reports that the drainage has been 10cc/day for the last several days. The output is serosanguinous. She also has an ostomy appliance which I placed over the site of her other BERNARD which had been removed by her surgeon before her dc from [facility]; she has not yet emptied that appliance but today I do see approx 10cc of pus in it. Her wound vac has been functioning, her son changed the cartridge yesterday and she received a call that an RN from [facility] will be visiting her tomorrow Pt states her pain is controlled, she is eating well and having regular bladder and bowel function ROS Review of Systems Systems Reviewed: All systems reviewed, normal except as documented Objective/Exam General General Appearance: alert, cooperative and well groomed Resp Respiratory exam: Absent respiratory distress Abdominal Abdominal exam: Present soft, incision (midline incision with beefy red granulation tissue, wound vac replaced) and other (BERNARD with scant serosanguinous output, removed today); Absent distention or tenderness Assessment & Plan Diagnosis / Problem List (1) Abdominal mass: Status: Acute Assessment & Plan: 55F with diverticulitis, sigmoid mass with abscess draining through abdominal wall treated with minimally invasive surgery at [facility] on 07/06, following up here for wound management. Her midline wound is healing well and I removed her remaining BERNARD today as it has had mininal output for the past week Plan: Follow up in 2 weeks Office Procedures GNS Level of Care Nursing/Assessment Patient Status: Established Patient Nursing Assessment/Reassesment: Medication Reconciliation, Update PMH in EMR and Vital Signs Coordination of Care: Complex Care and Chronic Disease 1-5, Education Complex Pt/Fam, Consent,records obtained, informed consent, Results/Orders obtained and Staff clarify orders Established Patient Charge Established Patient Point Assignment: 95 Patient Portal Questionaires Social History Living Situation History Housing: House Tobacco History Smoking Status: Never smoker Alcohol History Alcohol Intake: Never Alcohol Intake Frequency: holidays/special occasions only Domestic Abuse History Do You Feel Safe at Home: Yes Review of Systems Report any current symptoms Only answer those that you have currently: Past Medical History Past Medical History Have you ever been diagnosed with any of the following: Neurological Problems Seizures: No Cardiology Problems Congestive Heart Failure: No Respiratory Problems Chronic Obstructive Pulmonary Disease (COPD): No Asthma: No Stomache/Intestinal Problems Diverticulitis: Yes Genital/Urinary Problems Renal Disease: No Endocrine Problems Diabetes Mellitus Type 1: No Diabetes Mellitus Type 2: No Blood Problems Sickle Cell Disease: No Other Problems Blood Transfusions: No Blood Transfusion Reaction: No Anesthesia Reactions: No
== END 2025-07-22 12:10 | disposition home or self-care (01) ==
LOC: HODSRG 11:43
PROVIDERS: Supervising Provider Surgery; Visit Provider Surgery
DX: R19.00 Intra-abdominal and pelvic swelling, mass and lump, unspecified site (principal); Z09 Encounter for follow-up examination after completed treatment for conditions other than malignant neoplasm

== ENCOUNTER 2025-08-05 10:27 | Outpatient (AMB) | payer BC, SELFPAY ==
[2025-08-05 11:01] VITALS: BP 124/80; PULSE 123; RESP 18; TEMP 36.5; O2SAT 97; BMI 30.8
--- NOTE | 2025-08-05 11:01 | PD.GSCLVISIT ---
[facility] - [facility] 08/05/25 11:01 Height 1.57 m Height Method Measured Weight 75.92 kg Weight Measurement Method Standing Scale BMI 30.8 BP 124/80 Blood Pressure Source Automatic Cuff Blood Pressure Location Left Upper Arm Position Sitting Respiration 18 Pulse 123 H Pulse Source Monitor Temp 97.7 F Temp Source Temporal Artery Scan Pulse Oximetry (%) 97 Oxygen Delivery Method Room Air Med/Allergies Allergies & Medications Allergies No Known Allergies Allergy (Verified 08/05/25 11:02) Medication Reconciliation hydrocortisone 2.5 % topical cream with perineal applicator 1 applic MA QD-BID PRN hemorrhoids #30 grams 08/05/25 [Rx] oxycodone 5 mg tablet 5 mg PO Q6H PRN pain #30 tabs 08/05/25 [Rx] MA Intake Visit Data Collection New Patient or Established: Established Patient (seen at [facility] within 3 years) Seen by Clinical Staff ONLY (RN/MA): No Pain Present Currently: No Pain Scale Used: Carbone-Bermudez/Numerical Parachute Inspector Required: No PCP or OBGYN visit in last 3 months: Yes Hx Now: No Do You Feel Safe at Home: Yes Authorities Contacted: N/A Smoking Status Smoking Status: Never smoker Immunization / Flu Flu Vaccine in the Last 12 Months: Yes Flu Vaccine Exclusion Criteria: Already Received Past Medical History Past Medical History NEUROLOGIC: Negative Seizures CARDIAC: Negative Cardiac Disorders or Congestive Heart Failure RESPIRATORY: Negative Chronic Obstructive Pulmonary Disease (COPD) or Asthma GASTROINTESTINAL: Positive Diverticulitis GENITOURINARY: Negative Renal Disease ENDOCRINE: Negative Diabetes Mellitus Type 1 or Diabetes Mellitus Type 2 HEMATOLOGIC: Negative Sickle Cell Disease OTHER HISTORY: Negative Blood Transfusions, Blood Transfusion Reaction or Anesthesia Reactions Family History FAMILY HISTORY: Positive Family Cardiac Disorders; Negative Family Cancer Social History SMOKING STATUS: Smoking status: Never smoker ALCOHOL: Alcohol Intake: Never ALCOHOL FREQUENCY: Alcohol Intake Frequency: holidays/special occasions only HOUSING: Housing: House LIVES WITH: Lives With: Children HPI HPI Narrative HISTORY OF PRESENT ILLNESS I, Jeannie Ramirez, have obtained verbal consent from the patient, to be recorded during this encounter which may include, but not limited to, medical history, examination, treatment plans, and relevant health information.? Patient was informed that recording will be read and reviewed by myself before inclusion in the medical chart. The patient presents for a follow-up of wound VAC. She reports a general sense of well-being with manageable pain levels. The wound has shown signs of contraction, and she notes intermittent drainage. She is seeking additional pain medication, specifically oxycodone, which she has been using sparingly. Her bowel movements are regular, and she maintains hydration by consuming approximately two 16-ounce bottles of water daily. She also reports the presence of hemorrhoids, which are currently swollen. Her stools are soft in consistency. She has been using Preparation H for relief. ROS Review of Systems Systems Reviewed: All systems reviewed, normal except as documented Objective/Exam General General Appearance: alert, cooperative and well groomed Resp Respiratory exam: Absent respiratory distress Abdominal Abdominal exam: Present soft and incision (midline wound more shallow compared to previous exam, with beefy red granulation tissue, mild surrounding erythema which pt reports is from a prior dressing change with foam touching the skin ); Absent distention or tenderness Assessment & Plan Diagnosis / Problem List (1) Abdominal mass: Status: Acute Assessment & Plan: The wound is demonstrating satisfactory healing progress, appearing more superficial and exhibiting healthy tissue growth. It is anticipated that complete healing will occur within the next few weeks. A prescription for oxycodone has been provided for pain management. A referral to an oncologist has also been made for further evaluation and potential adjuvant chemotherapy, depending on the final pathology results. (2) Hemorrhoids: Status: Acute Assessment & Plan: Soft stools are reported, and there is no constipation. Increasing water intake to at least four 16-ounce bottles daily and incorporating fiber into the diet is recommended to maintain healthy bowel movements. A handout detailing hemorrhoid management strategies has been provided. The use of a sitz bath up to three times daily is recommended for pain, swelling, bleeding, and itching relief. [id number] creams such as Preparation H can be used. A prescription for hydrocortisone cream has been sent to the pharmacy. Orders: Referrals Oncology R19.00 - Intra-abdominal and pelvic swelling, mass and lump, unspecified site Office Procedures GNS Level of Care Nursing/Assessment Patient Status: Established Patient Nursing Assessment/Reassesment: Medication Reconciliation, Update PMH in EMR and Vital Signs Coordination of Care: Complex Care and Chronic Disease 1-5, Education Complex Pt/Fam, Consent,records obtained, informed consent, Results/Orders obtained and Staff clarify orders Established Patient Charge Established Patient Point Assignment: 95 Established Patient Point Charge: EP Level 3 (80-115) Patient Portal Questionaires Social History Living Situation History Housing: House Tobacco History Smoking Status: Never smoker Alcohol History Alcohol Intake: Never Alcohol Intake Frequency: holidays/special occasions only Domestic Abuse History Do You Feel Safe at Home: Yes Review of Systems Report any current symptoms Only answer those that you have currently: Past Medical History Past Medical History Have you ever been diagnosed with any of the following: Neurological Problems Seizures: No Cardiology Problems Congestive Heart Failure: No Respiratory Problems Chronic Obstructive Pulmonary Disease (COPD): No Asthma: No Stomache/Intestinal Problems Diverticulitis: Yes Genital/Urinary Problems Renal Disease: No Endocrine Problems Diabetes Mellitus Type 1: No Diabetes Mellitus Type 2: No Blood Problems Sickle Cell Disease: No Other Problems Blood Transfusions: No Blood Transfusion Reaction: No Anesthesia Reactions: No
== END 2025-08-05 11:14 | disposition home or self-care (01) ==
LOC: HODSRG 10:27
PROVIDERS: Supervising Provider Surgery; Visit Provider Surgery
DX: R19.00 Intra-abdominal and pelvic swelling, mass and lump, unspecified site (principal); K64.9 Unspecified hemorrhoids
CPT/HCPCS: 99213; G0463

== ENCOUNTER 2025-08-19 09:49 | Outpatient (AMB) | payer BC, SELFPAY ==
[2025-08-19 10:25] VITALS: BP 90/68; PULSE 108; RESP 18; TEMP 36.7; O2SAT 98; BMI 29.9
--- NOTE | 2025-08-19 10:25 | PD.GSCLVISIT ---
[facility]s - [facility] 08/19/25 10:25 Height 1.57 m Height Method Stated Weight 73.936 kg Weight Measurement Method Standing Scale BMI 29.9 BP 90/68 Blood Pressure Source Automatic Cuff Blood Pressure Location Left Upper Arm Position Sitting Respiration 18 Pulse 108 H Pulse Source Monitor Temp 98.0 F Temp Source Temporal Artery Scan Pulse Oximetry (%) 98 Oxygen Delivery Method Room Air Med/Allergies Allergies & Medications Allergies No Known Allergies Allergy (Verified 08/19/25 10:26) Medication Reconciliation hydrocortisone 2.5 % topical cream with perineal applicator 1 applic VA QD-BID PRN hemorrhoids #30 grams 08/05/25 [Rx Confirmed 08/19/25] oxycodone 5 mg tablet 5 mg PO Q6H PRN pain #30 tabs 08/05/25 [Rx Confirmed 08/19/25] MA Intake Visit Data Collection New Patient or Established: Established Patient (seen at [facility] within 3 years) Seen by Clinical Staff ONLY (RN/MA): No Reason for Visit:: 2 WK WOUND VAC FU Pain Present Currently: No Environmental Laboratory Technician Required: No PCP or OBGYN visit in last 3 months: Yes Hx Now: No Do You Feel Safe at Home: Yes Authorities Contacted: N/A Smoking Status Smoking Status: Never smoker Immunization / Flu Flu Vaccine in the Last 12 Months: Yes Flu Vaccine Exclusion Criteria: Already Received Past Medical History Past Medical History NEUROLOGIC: Negative Seizures CARDIAC: Negative Cardiac Disorders or Congestive Heart Failure RESPIRATORY: Negative Chronic Obstructive Pulmonary Disease (COPD) or Asthma GASTROINTESTINAL: Positive Diverticulitis GENITOURINARY: Negative Renal Disease ENDOCRINE: Negative Diabetes Mellitus Type 1 or Diabetes Mellitus Type 2 HEMATOLOGIC: Negative Sickle Cell Disease OTHER HISTORY: Negative Blood Transfusions, Blood Transfusion Reaction or Anesthesia Reactions Family History FAMILY HISTORY: Positive Family Cardiac Disorders; Negative Family Cancer Social History SMOKING STATUS: Smoking status: Never smoker ALCOHOL: Alcohol Intake: Never ALCOHOL FREQUENCY: Alcohol Intake Frequency: holidays/special occasions only HOUSING: Housing: House LIVES WITH: Lives With: Children HPI HPI Narrative 55F with diverticulitis, sigmoid mass with abscess draining through abdominal wall treated with minimally invasive surgery at [facility] on 07/06, following up here for wound management. Since last week the wound vac has been removed and pt feels overall well. She continues to have some drainage from the LLQ but it is overall decreased and her pain is well managed. Pt feels her hemorrhoids are still bothersome but the hydrocortisone and sitz baths are helping ROS Review of Systems Systems Reviewed: All systems reviewed, normal except as documented Objective/Exam General General Appearance: alert, cooperative and well groomed Resp Respiratory exam: Absent respiratory distress Abdominal Abdominal exam: Present soft, incision (midline wound shallow with beefy red granulation tissue, no surrounding erythema) and other (induration of LLQ, no erythema or fluctuance); Absent distention or tenderness Assessment & Plan Diagnosis / Problem List (1) Abdominal mass: Status: Acute Assessment & Plan: Midline wound healing well, continue wet to dry dressings [facility] has not yet heard from their office Plan: F/u in 4 weeks (2) Hemorrhoids: Status: Acute Assessment & Plan: Symptoms managed with hydrocortisone and sitz baths Office Procedures GNS Level of Care Nursing/Assessment Patient Status: Established Patient Nursing Assessment/Reassesment: Medication Reconciliation, Update PMH in EMR and Vital Signs Coordination of Care: Complex Care and Chronic Disease 1-5, Consent,records obtained, informed consent, Education Simp Pt/Fam, Results/Orders obtained and Staff clarify orders Established Patient Charge Established Patient Point Assignment: 90 Established Patient Point Charge: EP Level 3 (80-115) Patient Portal Questionaires Social History Living Situation History Housing: House Tobacco History Smoking Status: Never smoker Alcohol History Alcohol Intake: Never Alcohol Intake Frequency: holidays/special occasions only Domestic Abuse History Do You Feel Safe at Home: Yes Review of Systems Report any current symptoms Only answer those that you have currently: Past Medical History Past Medical History Have you ever been diagnosed with any of the following: Neurological Problems Seizures: No Cardiology Problems Congestive Heart Failure: No Respiratory Problems Chronic Obstructive Pulmonary Disease (COPD): No Asthma: No Stomache/Intestinal Problems Diverticulitis: Yes Genital/Urinary Problems Renal Disease: No Endocrine Problems Diabetes Mellitus Type 1: No Diabetes Mellitus Type 2: No Blood Problems Sickle Cell Disease: No Other Problems Blood Transfusions: No Blood Transfusion Reaction: No Anesthesia Reactions: No
== END 2025-08-19 10:30 | disposition home or self-care (01) ==
LOC: HODSRG 09:49
PROVIDERS: Supervising Provider Surgery; Visit Provider Surgery
DX: R19.00 Intra-abdominal and pelvic swelling, mass and lump, unspecified site (principal)
CPT/HCPCS: 99213; G0463